=== PATIENT | male | born 1955 | race Caucasian/White ===

== ENCOUNTER 2017-04-18 09:08 | Day surgery (SDC) | payer OTHER ==
[2017-04-15 11:01] VITALS: BP 136/86
[2017-04-15 11:31] LABS: BASOPHILS # (AUTO) 0.06 x10^3/uL (0-0.1); BASOPHILS % (AUTO) 1 % (0-1); EOSINOPHILS # (AUTO) 0.31 x10^3/uL (0-0.4); EOSINOPHILS % (AUTO) 4 % (1-7); LYMPHOCYTES # (AUTO) 1.15 x10^3/uL (1-3.4); LYMPHOCYTES % (AUTO) 13 % (22-44); MD NO; MEAN CORPUSCULAR HEMOGLOBIN 29.8 pg (27.5-34.5); MEAN CORPUSCULAR HGB CONC 33.7 g/dL (33.2-36.2); MEAN CORPUSCULAR VOLUME 88.6 fL (81-97); MEAN PLATELET VOLUME 8.2 fL (7.4-10.4); MONOCYTES # (AUTO) 0.73 x10^3/uL (0.2-0.8); MONOCYTES % (AUTO) 8 % (2-9); NEUTROPHILS # (AUTO) 6.55 x10^3/uL (1.8-6.8); NEUTROPHILS % (AUTO) 74 % (42-75); PLATELET COUNT 253 x10^3/uL (130-400); RED BLOOD COUNT 5.28 x10^6/uL (4.38-5.82); RED CELL DISTRIBUTION WIDTH 14.2 % (9.4-14.8)
[2017-04-15 11:35] LABS: INTERNATIONAL NORMALIZED RATIO 1.04 (0.93-1.1); PROTHROMBIN TIME 10.8 Seconds (9.6-11.5)
[2017-04-15 11:39] LABS: ANION GAP 9 mmol/L (5-15); CHLORIDE 107 mmol/L (98-107); CREATININE 1.03 mg/dL (0.7-1.3)
[~2017-04-18] VITALS: Ht 180.3 cm; Wt 115.9 kg
[~2017-04-18 09:08] MED LIST: ASPI-515 PO; ATOR-2 PO; DOCU-131 PO; FURO-93 PO; HYDR-3240 PO; INSU100I11 SQ-INSULIN; INSU100V8 SQ; LISI-167 PO; METF100010 PO; WARF10TA PO; WARF7.5T PO
[2017-04-18] MEDS ORDERED: ATEN25TA PO (09:40)
[2017-04-18] MEDS ORDERED: TRAV5DRO LEFTEYE (09:49)
[2017-04-18] MEDS ORDERED: EZET10TA18 PO (09:49)
[2017-04-18] MEDS ORDERED: TIOT4MIS3 INH (09:49)
[2017-04-18] MEDS ORDERED: LIRA0.6P INJ (09:49)
[2017-04-18 10:04] LABS: INTERNATIONAL NORMALIZED RATIO 1.01 (0.93-1.1); PROTHROMBIN TIME 10.5 Seconds (9.6-11.5)
[2017-04-18] MEDS ORDERED: MIDAZOLAM 1 MG/ML, 5ML ONE (11:28)
[2017-04-18] MEDS ORDERED: FENTANYL PF 100 MCG/2ML ONE (11:28)
[2017-04-18] MEDS ORDERED: LIDOCAINE 2%, 20ML ONE (11:28)
[2017-04-18] MEDS ORDERED: DIPHENHYDRAMINE 50 MG/ML, 1ML ONE (11:51)
[2017-04-18] MEDS ORDERED: DABI150C PO (12:46)
== END 2017-04-18 13:54 ==
LOC: CACL 09:08
PROVIDERS: ATTEND Internal Medicine Cardiovascular Disease
DX: I26.09 Other pulmonary embolism with acute cor pulmonale (principal); Z79.01 Long term (current) use of anticoagulants; I10 Essential (primary) hypertension; E11.9 Type 2 diabetes mellitus without complications; F17.211 Nicotine dependence, cigarettes, in remission; Z95.1 Presence of aortocoronary bypass graft; G47.30 Sleep apnea, unspecified; Z79.82 Long term (current) use of aspirin
CPT/HCPCS: 36415; 80048; 83880; 85025; 85610; 93451; 99156; 99157; C1769; C1894; J1200; J2250; J3010; J3490

== ENCOUNTER → 2017-10-25 | Outpatient (CLI) | payer OTHER ==
[~2017-10-25] MED LIST changes: +ATEN25TA PO; +DABI150C PO; +EZET10TA18 PO; +LIRA0.6P INJ; +TIOT4MIS3 INH; +TRAV5DRO LEFTEYE
== END | disposition home or self-care (01) ==
LOC: CVU 09:33
PROVIDERS: ATTEND Internal Medicine Cardiovascular Disease
DX: I82.411 Acute embolism and thrombosis of right femoral vein (principal); I82.431 Acute embolism and thrombosis of right popliteal vein; I87.2 Venous insufficiency (chronic) (peripheral); I26.09 Other pulmonary embolism with acute cor pulmonale; I10 Essential (primary) hypertension; E11.9 Type 2 diabetes mellitus without complications
CPT/HCPCS: 93970

== ENCOUNTER → 2018-04-26 | Outpatient (CLI) | payer OTHER ==
[~2018-04-26] MED LIST changes: +DULA1.5P SC; +INSU100C SQ-INSULIN
[2018-04-26 15:41] LABS: ALANINE AMINOTRANSFERASE 20 U/L (12-78); ALBUMIN 3.1 g/dL (3.4-5.0); ANION GAP 7 mmol/L (5-15); CALCIUM 8.7 mg/dL (8.5-10.1); CHLORIDE 107 mmol/L (98-107); CREATININE 1.01 mg/dL (0.7-1.3)
[2018-04-26 15:43] LABS: ALKALINE PHOSPHATASE 56 U/L (45-117); BILIRUBIN,TOTAL 0.3 mg/dL (0.2-1.0); TOTAL PROTEIN 6.8 g/dL (6.4-8.2)
== END | disposition home or self-care (01) ==
LOC: STAR 14:18
PROVIDERS: ATTEND Internal Medicine
DX: Z01.818 Encounter for other preprocedural examination (principal); D12.6 Benign neoplasm of colon, unspecified; I44.5 Left posterior fascicular block
CPT/HCPCS: 36415; 80053; 93005

== ENCOUNTER 2018-05-03 08:12 | Day surgery (SDC) | payer OTHER ==
[~2018-05-03] VITALS: Ht 180.3 cm; Wt 114.5 kg
[2018-05-03 08:54] VITALS: BP 145/84
[2018-05-03] MEDS ORDERED: LACTATED RINGERS 1,000 ML IV SCH (08:54)
[2018-05-03] MEDS ORDERED: LIDOCAINE-MPF 1%, 2ML INFIL ONE (09:00)
[2018-05-03] MEDS ORDERED: MIDAZOLAM 1 MG/ML, 2ML ONE (09:37)
[2018-05-03] MEDS ORDERED: FENTANYL PF 100 MCG/2ML ONE (09:37)
[2018-05-03] MEDS ORDERED: ONDANSETRON 2MG/ML, 2ML ONE (09:45)
[2018-05-03] MEDS ORDERED: PROPOFOL 10 MG/ML, 20ML ONE (09:45)
== END 2018-05-03 11:40 | disposition home or self-care (01) ==
LOC: OUT 08:12
PROVIDERS: ATTEND Internal Medicine
DX: Z12.11 Encounter for screening for malignant neoplasm of colon (principal); K63.89 Other specified diseases of intestine; J44.9 Chronic obstructive pulmonary disease, unspecified; I25.10 Atherosclerotic heart disease of native coronary artery without angina pectoris; I11.9 Hypertensive heart disease without heart failure; Z79.01 Long term (current) use of anticoagulants; Z88.0 Allergy status to penicillin; Z98.890 Other specified postprocedural states
CPT/HCPCS: 45378; 82962; J2250; J2405; J2704; J3010; J7120

== ENCOUNTER → 2018-05-22 | Outpatient (CLI) | payer OTHER | END | disposition home or self-care (01) | LOC: WOUND 09:16 | PROVIDERS: ATTEND Family Medicine | DX: E11.622 Type 2 diabetes mellitus with other skin ulcer (principal); I87.311 Chronic venous hypertension (idiopathic) with ulcer of right lower extremity; L97.211 Non-pressure chronic ulcer of right calf limited to breakdown of skin; E78.5 Hyperlipidemia, unspecified; E11.21 Type 2 diabetes mellitus with diabetic nephropathy; E66.01 Morbid (severe) obesity due to excess calories; I25.10 Atherosclerotic heart disease of native coronary artery without angina pectoris; J44.9 Chronic obstructive pulmonary disease, unspecified; I11.9 Hypertensive heart disease without heart failure; Z86.718 Personal history of other venous thrombosis and embolism; Z87.891 Personal history of nicotine dependence; Z86.711 Personal history of pulmonary embolism; Z79.01 Long term (current) use of anticoagulants; Z79.4 Long term (current) use of insulin; Z68.35 Body mass index [BMI] 35.0-35.9, adult | CPT/HCPCS: 97597; 99215 ==

== ENCOUNTER → 2018-06-05 | Outpatient (CLI) | payer OTHER | END | disposition home or self-care (01) | LOC: WOUND 09:30 | PROVIDERS: ATTEND Internal Medicine | DX: E11.622 Type 2 diabetes mellitus with other skin ulcer (principal); I87.311 Chronic venous hypertension (idiopathic) with ulcer of right lower extremity; L97.811 Non-pressure chronic ulcer of other part of right lower leg limited to breakdown of skin; E11.21 Type 2 diabetes mellitus with diabetic nephropathy; I11.0 Hypertensive heart disease with heart failure; I50.9 Heart failure, unspecified; E78.5 Hyperlipidemia, unspecified; J44.9 Chronic obstructive pulmonary disease, unspecified; I25.10 Atherosclerotic heart disease of native coronary artery without angina pectoris; E66.01 Morbid (severe) obesity due to excess calories; Z68.35 Body mass index [BMI] 35.0-35.9, adult; Z79.4 Long term (current) use of insulin; Z87.891 Personal history of nicotine dependence; Z86.711 Personal history of pulmonary embolism; Z86.718 Personal history of other venous thrombosis and embolism | CPT/HCPCS: 97597 ==

== ENCOUNTER 2018-06-12 10:05 | Outpatient (CLI) | payer OTHER | END 2018-06-12 23:59 | disposition home or self-care (01) | LOC: WOUND 10:05 | PROVIDERS: ATTEND Internal Medicine | DX: E11.622 Type 2 diabetes mellitus with other skin ulcer (principal); I87.311 Chronic venous hypertension (idiopathic) with ulcer of right lower extremity; L97.811 Non-pressure chronic ulcer of other part of right lower leg limited to breakdown of skin; E11.21 Type 2 diabetes mellitus with diabetic nephropathy; I11.0 Hypertensive heart disease with heart failure; I50.9 Heart failure, unspecified; E78.5 Hyperlipidemia, unspecified; J44.9 Chronic obstructive pulmonary disease, unspecified; I25.10 Atherosclerotic heart disease of native coronary artery without angina pectoris; E66.01 Morbid (severe) obesity due to excess calories; Z68.35 Body mass index [BMI] 35.0-35.9, adult; Z79.4 Long term (current) use of insulin; Z87.891 Personal history of nicotine dependence; Z86.711 Personal history of pulmonary embolism; Z79.01 Long term (current) use of anticoagulants; Z86.718 Personal history of other venous thrombosis and embolism | CPT/HCPCS: 97597 ==

== ENCOUNTER → 2018-06-19 | Outpatient (CLI) | payer OTHER | END | disposition home or self-care (01) | LOC: WOUND 10:48 | PROVIDERS: ATTEND Internal Medicine | DX: E11.622 Type 2 diabetes mellitus with other skin ulcer (principal); I87.311 Chronic venous hypertension (idiopathic) with ulcer of right lower extremity; L97.811 Non-pressure chronic ulcer of other part of right lower leg limited to breakdown of skin; E11.21 Type 2 diabetes mellitus with diabetic nephropathy; I11.0 Hypertensive heart disease with heart failure; I50.9 Heart failure, unspecified; E78.5 Hyperlipidemia, unspecified; J44.9 Chronic obstructive pulmonary disease, unspecified; I25.10 Atherosclerotic heart disease of native coronary artery without angina pectoris; E66.01 Morbid (severe) obesity due to excess calories; Z68.35 Body mass index [BMI] 35.0-35.9, adult; Z79.4 Long term (current) use of insulin; Z87.891 Personal history of nicotine dependence; Z79.01 Long term (current) use of anticoagulants; Z86.711 Personal history of pulmonary embolism; Z86.718 Personal history of other venous thrombosis and embolism | CPT/HCPCS: 97597 ==

== ENCOUNTER → 2018-06-26 | Outpatient (CLI) | payer OTHER | END | disposition home or self-care (01) | LOC: WOUND 08:36 | PROVIDERS: ATTEND Internal Medicine | DX: E11.622 Type 2 diabetes mellitus with other skin ulcer (principal); I87.311 Chronic venous hypertension (idiopathic) with ulcer of right lower extremity; L97.811 Non-pressure chronic ulcer of other part of right lower leg limited to breakdown of skin; E11.21 Type 2 diabetes mellitus with diabetic nephropathy; I11.0 Hypertensive heart disease with heart failure; I50.9 Heart failure, unspecified; E78.5 Hyperlipidemia, unspecified; J44.9 Chronic obstructive pulmonary disease, unspecified; I25.10 Atherosclerotic heart disease of native coronary artery without angina pectoris; E66.01 Morbid (severe) obesity due to excess calories; Z68.35 Body mass index [BMI] 35.0-35.9, adult; Z88.0 Allergy status to penicillin; Z79.4 Long term (current) use of insulin; Z79.01 Long term (current) use of anticoagulants; Z87.891 Personal history of nicotine dependence; Z86.711 Personal history of pulmonary embolism; Z86.718 Personal history of other venous thrombosis and embolism | CPT/HCPCS: 97597 ==

== ENCOUNTER → 2018-07-03 | Outpatient (CLI) | payer OTHER | END | disposition home or self-care (01) | LOC: WOUND 10:28 | PROVIDERS: ATTEND Internal Medicine | DX: E11.622 Type 2 diabetes mellitus with other skin ulcer (principal); I87.311 Chronic venous hypertension (idiopathic) with ulcer of right lower extremity; L97.811 Non-pressure chronic ulcer of other part of right lower leg limited to breakdown of skin; E11.21 Type 2 diabetes mellitus with diabetic nephropathy; I11.0 Hypertensive heart disease with heart failure; I50.9 Heart failure, unspecified; E78.5 Hyperlipidemia, unspecified; J44.9 Chronic obstructive pulmonary disease, unspecified; I25.10 Atherosclerotic heart disease of native coronary artery without angina pectoris; E66.01 Morbid (severe) obesity due to excess calories; Z68.35 Body mass index [BMI] 35.0-35.9, adult; Z87.891 Personal history of nicotine dependence; Z88.0 Allergy status to penicillin; Z79.4 Long term (current) use of insulin; Z79.01 Long term (current) use of anticoagulants; Z86.711 Personal history of pulmonary embolism; Z86.718 Personal history of other venous thrombosis and embolism | CPT/HCPCS: 97597 ==

== ENCOUNTER 2018-07-10 08:43 | Outpatient (CLI) | payer OTHER | END 2018-07-10 23:59 | disposition home or self-care (01) | LOC: WOUND 08:43 | PROVIDERS: ATTEND Internal Medicine | DX: E11.622 Type 2 diabetes mellitus with other skin ulcer (principal); I87.311 Chronic venous hypertension (idiopathic) with ulcer of right lower extremity; L97.811 Non-pressure chronic ulcer of other part of right lower leg limited to breakdown of skin; E11.21 Type 2 diabetes mellitus with diabetic nephropathy; I11.0 Hypertensive heart disease with heart failure; I50.9 Heart failure, unspecified; E78.5 Hyperlipidemia, unspecified; I25.10 Atherosclerotic heart disease of native coronary artery without angina pectoris; E66.01 Morbid (severe) obesity due to excess calories; Z68.35 Body mass index [BMI] 35.0-35.9, adult; Z88.0 Allergy status to penicillin; Z87.891 Personal history of nicotine dependence; J44.9 Chronic obstructive pulmonary disease, unspecified; Z79.01 Long term (current) use of anticoagulants; Z79.4 Long term (current) use of insulin; Z86.711 Personal history of pulmonary embolism; Z86.718 Personal history of other venous thrombosis and embolism | CPT/HCPCS: 15271; Q4101 ==

== ENCOUNTER → 2018-07-19 | Outpatient (CLI) | payer OTHER | END | disposition home or self-care (01) | LOC: WOUND 09:37 | PROVIDERS: ATTEND Internal Medicine | DX: E11.622 Type 2 diabetes mellitus with other skin ulcer (principal); I87.311 Chronic venous hypertension (idiopathic) with ulcer of right lower extremity; L97.811 Non-pressure chronic ulcer of other part of right lower leg limited to breakdown of skin; E11.21 Type 2 diabetes mellitus with diabetic nephropathy; I11.0 Hypertensive heart disease with heart failure; I50.9 Heart failure, unspecified; J44.9 Chronic obstructive pulmonary disease, unspecified; E78.5 Hyperlipidemia, unspecified; I25.10 Atherosclerotic heart disease of native coronary artery without angina pectoris; E66.01 Morbid (severe) obesity due to excess calories; Z68.35 Body mass index [BMI] 35.0-35.9, adult; Z88.0 Allergy status to penicillin; Z79.01 Long term (current) use of anticoagulants; Z79.4 Long term (current) use of insulin; Z87.891 Personal history of nicotine dependence; Z86.711 Personal history of pulmonary embolism; Z86.718 Personal history of other venous thrombosis and embolism | CPT/HCPCS: 29581 ==

== ENCOUNTER → 2018-07-24 | Outpatient (CLI) | payer OTHER | END | disposition home or self-care (01) | LOC: WOUND 09:45 | PROVIDERS: ATTEND Internal Medicine | DX: E11.622 Type 2 diabetes mellitus with other skin ulcer (principal); I87.311 Chronic venous hypertension (idiopathic) with ulcer of right lower extremity; L97.511 Non-pressure chronic ulcer of other part of right foot limited to breakdown of skin; E11.21 Type 2 diabetes mellitus with diabetic nephropathy; I11.0 Hypertensive heart disease with heart failure; I50.9 Heart failure, unspecified; E78.5 Hyperlipidemia, unspecified; J44.9 Chronic obstructive pulmonary disease, unspecified; I25.10 Atherosclerotic heart disease of native coronary artery without angina pectoris; E66.01 Morbid (severe) obesity due to excess calories; Z68.35 Body mass index [BMI] 35.0-35.9, adult; Z88.0 Allergy status to penicillin; Z79.4 Long term (current) use of insulin; Z86.711 Personal history of pulmonary embolism; Z87.891 Personal history of nicotine dependence; Z86.718 Personal history of other venous thrombosis and embolism; Z79.01 Long term (current) use of anticoagulants | CPT/HCPCS: 15271; Q4101 ==

== ENCOUNTER → 2018-08-02 | Outpatient (CLI) | payer OTHER | END | disposition home or self-care (01) | LOC: WOUND 10:15 | PROVIDERS: ATTEND Internal Medicine | DX: E11.622 Type 2 diabetes mellitus with other skin ulcer (principal); I87.311 Chronic venous hypertension (idiopathic) with ulcer of right lower extremity; L97.811 Non-pressure chronic ulcer of other part of right lower leg limited to breakdown of skin; E11.21 Type 2 diabetes mellitus with diabetic nephropathy; I11.0 Hypertensive heart disease with heart failure; I50.9 Heart failure, unspecified; E78.5 Hyperlipidemia, unspecified; J44.9 Chronic obstructive pulmonary disease, unspecified; I25.10 Atherosclerotic heart disease of native coronary artery without angina pectoris; E66.01 Morbid (severe) obesity due to excess calories; Z68.35 Body mass index [BMI] 35.0-35.9, adult; Z88.0 Allergy status to penicillin; Z79.4 Long term (current) use of insulin; Z79.01 Long term (current) use of anticoagulants; Z87.891 Personal history of nicotine dependence; Z86.711 Personal history of pulmonary embolism; Z86.718 Personal history of other venous thrombosis and embolism | CPT/HCPCS: 15271; Q4101 ==

== ENCOUNTER → 2018-08-07 | Outpatient (CLI) | payer OTHER | END | disposition home or self-care (01) | LOC: WOUND 09:10 | PROVIDERS: ATTEND Internal Medicine | DX: E11.622 Type 2 diabetes mellitus with other skin ulcer (principal); I87.311 Chronic venous hypertension (idiopathic) with ulcer of right lower extremity; L97.211 Non-pressure chronic ulcer of right calf limited to breakdown of skin; E11.21 Type 2 diabetes mellitus with diabetic nephropathy; E78.5 Hyperlipidemia, unspecified; I25.10 Atherosclerotic heart disease of native coronary artery without angina pectoris; E66.01 Morbid (severe) obesity due to excess calories; Z68.35 Body mass index [BMI] 35.0-35.9, adult; Z87.891 Personal history of nicotine dependence; Z86.711 Personal history of pulmonary embolism; Z86.718 Personal history of other venous thrombosis and embolism | CPT/HCPCS: 99214 ==

== ENCOUNTER → 2018-08-14 | Outpatient (CLI) | payer OTHER | END | disposition home or self-care (01) | LOC: WOUND 08:06 | PROVIDERS: ATTEND Internal Medicine | DX: E11.622 Type 2 diabetes mellitus with other skin ulcer (principal); I87.311 Chronic venous hypertension (idiopathic) with ulcer of right lower extremity; L97.811 Non-pressure chronic ulcer of other part of right lower leg limited to breakdown of skin; E11.21 Type 2 diabetes mellitus with diabetic nephropathy; I11.0 Hypertensive heart disease with heart failure; I50.9 Heart failure, unspecified; E78.5 Hyperlipidemia, unspecified; J44.9 Chronic obstructive pulmonary disease, unspecified; I25.10 Atherosclerotic heart disease of native coronary artery without angina pectoris; E66.01 Morbid (severe) obesity due to excess calories; Z68.35 Body mass index [BMI] 35.0-35.9, adult; Z79.4 Long term (current) use of insulin; Z88.0 Allergy status to penicillin; Z86.711 Personal history of pulmonary embolism; Z87.891 Personal history of nicotine dependence; Z79.01 Long term (current) use of anticoagulants; Z86.718 Personal history of other venous thrombosis and embolism | CPT/HCPCS: 29581 ==

== ENCOUNTER → 2018-08-21 | Outpatient (CLI) | payer OTHER | END | disposition home or self-care (01) | LOC: WOUND 10:33 | PROVIDERS: ATTEND Internal Medicine | DX: E11.622 Type 2 diabetes mellitus with other skin ulcer (principal); I87.311 Chronic venous hypertension (idiopathic) with ulcer of right lower extremity; L97.211 Non-pressure chronic ulcer of right calf limited to breakdown of skin; E11.21 Type 2 diabetes mellitus with diabetic nephropathy; I11.0 Hypertensive heart disease with heart failure; I50.9 Heart failure, unspecified; E78.5 Hyperlipidemia, unspecified; J44.9 Chronic obstructive pulmonary disease, unspecified; I25.10 Atherosclerotic heart disease of native coronary artery without angina pectoris; E66.01 Morbid (severe) obesity due to excess calories; Z68.35 Body mass index [BMI] 35.0-35.9, adult; Z88.0 Allergy status to penicillin; Z79.4 Long term (current) use of insulin; Z79.01 Long term (current) use of anticoagulants; Z86.711 Personal history of pulmonary embolism; Z87.891 Personal history of nicotine dependence; Z86.718 Personal history of other venous thrombosis and embolism | CPT/HCPCS: 99214 ==

== ENCOUNTER → 2019-03-07 | Outpatient (CLI) | payer OTHER ==
[~2019-03-07] MED LIST changes: -EZET10TA18 PO; +EZET10TA70 PO
== END | disposition home or self-care (01) ==
LOC: CFH 12:26
PROVIDERS: ATTEND Internal Medicine Cardiovascular Disease
DX: I11.9 Hypertensive heart disease without heart failure (principal); M47.899 Other spondylosis, site unspecified; R06.02 Shortness of breath; I35.0 Nonrheumatic aortic (valve) stenosis; I82.890 Acute embolism and thrombosis of other specified veins
CPT/HCPCS: 71046

== ENCOUNTER → 2019-03-29 | Outpatient (CLI) | payer OTHER | END | disposition home or self-care (01) | LOC: CVU 11:38 | PROVIDERS: ATTEND Internal Medicine Cardiovascular Disease | DX: I11.9 Hypertensive heart disease without heart failure (principal); I08.0 Rheumatic disorders of both mitral and aortic valves; E78.5 Hyperlipidemia, unspecified; E11.9 Type 2 diabetes mellitus without complications; J44.9 Chronic obstructive pulmonary disease, unspecified | CPT/HCPCS: 93306 ==

== ENCOUNTER 2019-04-27 10:49 | Outpatient (CLI) | payer OTHER | END 2019-04-27 23:59 | disposition home or self-care (01) | LOC: CVU 10:49 | PROVIDERS: ATTEND Internal Medicine Cardiovascular Disease | DX: I65.23 Occlusion and stenosis of bilateral carotid arteries (principal); J44.9 Chronic obstructive pulmonary disease, unspecified; E11.9 Type 2 diabetes mellitus without complications; I25.2 Old myocardial infarction | CPT/HCPCS: 93880 ==

== ENCOUNTER 2019-05-10 08:31 | Observation (INO) | payer OTHER ==
[~2019-05-10] VITALS: Ht 180.3 cm; Wt 127.3 kg
[2019-05-10 09:22] VITALS: BP 137/76
[2019-05-10] MEDS ORDERED: DIPHENHYDRAMINE 50 MG/ML, 1ML IVPush ONE (09:30)
[2019-05-10] MEDS ORDERED: CANA300T PO (09:47)
[2019-05-10 09:52] LABS: BASOPHILS # (AUTO) 0.03 x10^3/uL (0-0.1); BASOPHILS % (AUTO) 0 % (0-1); EOSINOPHILS # (AUTO) 0.22 x10^3/uL (0-0.4); EOSINOPHILS % (AUTO) 3 % (1-7); LYMPHOCYTES # (AUTO) 0.87 x10^3/uL (1-3.4); LYMPHOCYTES % (AUTO) 10 % (22-44); MD NO; MEAN CORPUSCULAR HEMOGLOBIN 30.1 pg (27.5-34.5); MEAN CORPUSCULAR HGB CONC 33.3 g/dL (33.2-36.2); MEAN CORPUSCULAR VOLUME 90.3 fL (81-97); MEAN PLATELET VOLUME 8.1 fL (7.4-10.4); MONOCYTES # (AUTO) 1.01 x10^3/uL (0.2-0.8); MONOCYTES % (AUTO) 12 % (2-9); NEUTROPHILS # (AUTO) 6.33 x10^3/uL (1.8-6.8); NEUTROPHILS % (AUTO) 75 % (42-75); PLATELET COUNT 305 x10^3/uL (130-400); RED BLOOD COUNT 4.55 x10^6/uL (4.38-5.82); RED CELL DISTRIBUTION WIDTH 14.4 % (9.4-14.8)
[2019-05-10] MEDS ORDERED: BUME0.5T2 PO (09:55)
[2019-05-10] MEDS ORDERED: POTA20PA25 PO (09:55)
[2019-05-10 10:00] LABS: INTERNATIONAL NORMALIZED RATIO 0.97 (0.93-1.1); PROTHROMBIN TIME 10.3 Seconds (9.6-11.5)
[2019-05-10] MEDS ORDERED: DIPHENHYDRAMINE 50 MG/ML, 1ML ONE (10:01)
[2019-05-10] MEDS ORDERED: MIDAZOLAM 1 MG/ML, 5ML ONE (10:38)
[2019-05-10] MEDS ORDERED: FENTANYL PF 100 MCG/2ML ONE (10:38)
[2019-05-10] MEDS ORDERED: HEPARIN 1,000 UNITS/ML, 10ML ONE (10:39)
[2019-05-10] MEDS ORDERED: NITROGLYCERIN 5 MG/ML, 10ML ONE (10:39)
[2019-05-10] MEDS ORDERED: VERAPAMIL 2.5 MG/ML, 2ML ONE (10:39)
[2019-05-10] MEDS ORDERED: LIDOCAINE-MPF 1%, 5ML ONE (10:39)
[2019-05-10] MEDS: SODIUM CHLORIDE 0.9% 1,000 ML IV SCH ×7 (11:00→23:00)
[2019-05-10] MEDS ORDERED: LIDOCAINE 2%, 20ML ONE (11:22)
[2019-05-10] MEDS ORDERED: BIVALIRUDIN 250 MG ONE (12:16)
[2019-05-10] MEDS ORDERED: TICAGRELOR 90 MG TABLET ONE (12:16)
[2019-05-10] MEDS ORDERED: DULAGLUTIDE SC SCH (13:30)
[2019-05-10] MEDS ORDERED: INSULIN LISPRO 100 UNITS/ML, PEN SQ-INSULIN SCH (13:30)
[2019-05-10] MEDS ORDERED: FUROSEMIDE 40 MG/4 ML ONE (14:34)
[2019-05-10] MEDS ORDERED: FUROSEMIDE 40 MG/4 ML IV ONE (15:00)
[2019-05-10 17:26] VITALS: BP 131/64
[2019-05-10] MEDS ORDERED: HYDROcodone/APAP 5/325 TABLET PO PRN (18:30)
[2019-05-10] MEDS ORDERED: ACETAMINOPHEN 325 MG TABLET PO PRN (18:30)
[2019-05-10 19:37] VITALS: BP 139/81
[2019-05-10] MEDS: DABIGATRAN 150 MG CAPSULE PO SCH (20:27)
[2019-05-10] MEDS: BUMETANIDE 1 MG TABLET PO SCH (20:27)
[2019-05-10] MEDS ORDERED: EZETIMIBE 10 MG TABLET PO SCH (21:00)
[2019-05-10] MEDS ORDERED: TRAVOPROST OPHTH 0.004%, 2.5ML LEFTEYE SCH (21:00)
[2019-05-11] MEDS: SODIUM CHLORIDE 0.9% 1,000 ML IV SCH ×3 (00:41→04:12)
[2019-05-11 01:10] VITALS: BP 144/73
[2019-05-11 07:00] VITALS: BP 142/77
[2019-05-11] MEDS ORDERED: INSULIN LISPRO 100 UNITS/ML, PEN SQ-INSULIN SCH ×2 (07:30→16:30)
[2019-05-11] MEDS ORDERED: TICA90TA PO (07:58)
[2019-05-11] MEDS ORDERED: TICAGRELOR 90 MG TABLET PO STA (07:59)
[2019-05-11] MEDS: BUMETANIDE 1 MG TABLET PO SCH (08:23)
[2019-05-11] MEDS: DABIGATRAN 150 MG CAPSULE PO SCH (08:23)
[2019-05-11] MEDS ORDERED: TEMPLATE NON-FORMULARY MED. (Canagliflozin (Invokana) 300 MG) PO SCH (09:00)
[2019-05-11] MEDS ORDERED: ATORVASTATIN 80 MG TABLET PO SCH (09:00)
[2019-05-11] MEDS ORDERED: ATENOLOL 25 MG TABLET PO SCH (09:00)
[2019-05-11] MEDS ORDERED: POTASSIUM CHLORIDE 20 MEQ PACKET PO SCH (09:00)
[2019-05-11] MEDS ORDERED: LISINOPRIL 40 MG TABLET PO SCH (09:00)
== END 2019-05-11 12:20 | disposition home or self-care (01) ==
LOC: CACL 08:31 → 5SO 16:57 → CACL 21:51 → DCLOUNGE 05-11 12:07
PROVIDERS: ADMIT Internal Medicine Cardiovascular Disease; ATTEND Internal Medicine Cardiovascular Disease
DX: I35.0 Nonrheumatic aortic (valve) stenosis (principal); I25.10 Atherosclerotic heart disease of native coronary artery without angina pectoris; I25.82 Chronic total occlusion of coronary artery; Z95.1 Presence of aortocoronary bypass graft; Z79.899 Other long term (current) drug therapy; Z79.01 Long term (current) use of anticoagulants
CPT/HCPCS: 82962; 85025; 85610; 85730; 93454; 96374; 96375; 99156; 99157; C1725; C1760; C1769; C1874; C1887; C1894; C9600; G0378; J0583; J1200; J1644; J1940; J2250; J3010; J3490; Q9967

== ENCOUNTER → 2019-05-16 | Outpatient (CLI) | payer OTHER ==
[~2019-05-16] MED LIST changes: +BUME0.5T2 PO; +CANA300T PO; +METOPROLOL 1 MG/ML, 5ML ONE; +POTA20PA25 PO; +TICA90TA PO; +VISIPAQUE 320 MG/ML, 150ML BOTTLE ONE
== END | disposition home or self-care (01) ==
LOC: RAD 10:58
PROVIDERS: ATTEND Internal Medicine Cardiovascular Disease
DX: K76.0 Fatty (change of) liver, not elsewhere classified (principal); K80.20 Calculus of gallbladder without cholecystitis without obstruction; I25.10 Atherosclerotic heart disease of native coronary artery without angina pectoris; I35.0 Nonrheumatic aortic (valve) stenosis; I70.0 Atherosclerosis of aorta; I77.1 Stricture of artery
CPT/HCPCS: 71275; 74174; Q9967

== ENCOUNTER 2019-05-29 06:14 | Inpatient (IN) | payer OTHER ==
[~2019-05-29] VITALS: Ht 180.3 cm; Wt 133.0 kg
[~2019-05-29 06:14] MED LIST changes: -METOPROLOL 1 MG/ML, 5ML ONE; -VISIPAQUE 320 MG/ML, 150ML BOTTLE ONE
[2019-05-29] MEDS ORDERED: SODIUM CHLORIDE 0.9% 1,000 ML IV ONE (06:22)
[2019-05-29] MEDS ORDERED: CHLORHEXIDINE 15 ML UDC MM PRN (06:30)
[2019-05-29] MEDS ORDERED: ONDANSETRON 2MG/ML, 2ML IVPush PRN ×2 (06:30→09:30)
[2019-05-29 06:35] VITALS: BP 185/93
[2019-05-29] MEDS ORDERED: [UNRECOGNIZED DRUG - OTHER] (07:09)
[2019-05-29] MEDS ORDERED: BRIN8DRO LEFTEYE (07:11)
[2019-05-29] MEDS ORDERED: HEPARIN 1,000 UNITS/ML, 30ML ONE (07:13)
[2019-05-29] MEDS ORDERED: FENTANYL PF 250 MCG/5ML ONE (07:13)
[2019-05-29] MEDS ORDERED: PHENYLEPHRINE 10 MG/ML ONE (07:14)
[2019-05-29] MEDS ORDERED: PROPOFOL 10 MG/ML, 20ML ONE (07:14)
[2019-05-29] MEDS ORDERED: ROCURONIUM 10MG/ML,5ML ONE (07:14)
[2019-05-29] MEDS ORDERED: SUCCINYLCHOLINE 20 MG/ML, 10ML ONE (07:14)
[2019-05-29 07:38] LABS: BASOPHILS # (AUTO) 0.06 x10^3/uL (0-0.1); BASOPHILS % (AUTO) 1 % (0-1); EOSINOPHILS # (AUTO) 0.22 x10^3/uL (0-0.4); EOSINOPHILS % (AUTO) 2 % (1-7); LYMPHOCYTES # (AUTO) 1.32 x10^3/uL (1-3.4); LYMPHOCYTES % (AUTO) 14 % (22-44); MD NO; MEAN CORPUSCULAR HEMOGLOBIN 29.6 pg (27.5-34.5); MEAN CORPUSCULAR HGB CONC 32.8 g/dL (33.2-36.2); MEAN CORPUSCULAR VOLUME 90.5 fL (81-97); MEAN PLATELET VOLUME 8.7 fL (7.4-10.4); MONOCYTES # (AUTO) 1.07 x10^3/uL (0.2-0.8); MONOCYTES % (AUTO) 11 % (2-9); NEUTROPHILS # (AUTO) 7.11 x10^3/uL (1.8-6.8); NEUTROPHILS % (AUTO) 73 % (42-75); PLATELET COUNT 311 x10^3/uL (130-400); RED BLOOD COUNT 4.72 x10^6/uL (4.38-5.82); RED CELL DISTRIBUTION WIDTH 14.3 % (9.4-14.8)
[2019-05-29 07:45] LABS: ALANINE AMINOTRANSFERASE 24 U/L (12-78); ALBUMIN 3.2 g/dL (3.4-5.0); ANION GAP 8 mmol/L (5-15); CALCIUM 8.7 mg/dL (8.5-10.1); CHLORIDE 109 mmol/L (98-107); CREATININE 1.26 mg/dL (0.7-1.3)
[2019-05-29 07:47] LABS: INTERNATIONAL NORMALIZED RATIO 0.99 (0.93-1.1); PROTHROMBIN TIME 10.5 Seconds (9.6-11.5)
[2019-05-29 07:49] LABS: ALKALINE PHOSPHATASE 59 U/L (45-117); BILIRUBIN,TOTAL 0.5 mg/dL (0.2-1.0); TOTAL PROTEIN 7.4 g/dL (6.4-8.2)
[2019-05-29] MEDS ORDERED: TICAGRELOR 90 MG TABLET ONE (07:49)
[2019-05-29] MEDS ORDERED: SUGAMMADEX 200 MG/2 ML IVPush ONE (07:54)
[2019-05-29] MEDS ORDERED: DEXAMETHASONE 4 MG/ML, 1ML ONE (07:54)
[2019-05-29] MEDS ORDERED: ONDANSETRON 2MG/ML, 2ML ONE (07:54)
[2019-05-29] MEDS ORDERED: BIVALIRUDIN 250 MG ONE (08:10)
[2019-05-29] MEDS ORDERED: hydrALAzine 20 MG/ML, 1ML ONE (09:25)
[2019-05-29] MEDS ORDERED: DEXTROSE 4 GM TAB.CHEW PO PRN (09:30)
[2019-05-29] MEDS ORDERED: ACETAMINOPHEN 325 MG TABLET PO PRN (09:30)
[2019-05-29] MEDS ORDERED: LABETALOL 20 MG/4 ML IVPush PRN (09:30)
[2019-05-29] MEDS ORDERED: HYDROcodone/APAP 5/325 TABLET PO PRN (09:30)
[2019-05-29] MEDS ORDERED: GLUCAGON 1 MG IM PRN (09:30)
[2019-05-29] MEDS ORDERED: FUROSEMIDE 40 MG/4 ML IV ONE (09:30)
[2019-05-29] MEDS ORDERED: hydrALAzine 20 MG/ML, 1ML IVPush PRN (09:30)
[2019-05-29] MEDS ORDERED: DEXTROSE 50%, 50ML SYRINGE IVPush PRN (09:30)
[2019-05-29] MEDS ORDERED: [UNRECOGNIZED DRUG - OTHER] SC SCH (09:30)
[2019-05-29] MEDS ORDERED: LABETALOL 5MG/ML, 20ML ONE (09:33)
[2019-05-29] MEDS ORDERED: LABETALOL 5MG/ML, 20ML IVPush PRN (10:00)
[2019-05-29] MEDS: BUMETANIDE 1 MG TABLET PO SCH ×2 (10:32→21:00)
[2019-05-29] MEDS: ATENOLOL 25 MG TABLET PO SCH (10:34)
[2019-05-29] MEDS: ATORVASTATIN 80 MG TABLET PO SCH (10:35)
[2019-05-29] MEDS: INSULIN LISPRO 100 UNITS/ML, PEN SQ-INSULIN SCH ×3 (13:06→21:06)
[2019-05-29] MEDS: SODIUM CHLORIDE FLUSH 10ML SYR IVF SCH (20:59)
[2019-05-29] MEDS: TICAGRELOR 90 MG TABLET PO SCH (21:00)
[2019-05-29] MEDS ORDERED: BUMETANIDE 1 MG TABLET PO SCH (21:00)
[2019-05-29] MEDS ORDERED: EZETIMIBE 10 MG TABLET PO SCH (21:00)
[2019-05-29] MEDS: DABIGATRAN 150 MG CAPSULE PO SCH (21:01)
[2019-05-30 05:20] LABS: MEAN CORPUSCULAR HEMOGLOBIN 29.4 pg (27.5-34.5); MEAN CORPUSCULAR HGB CONC 32.5 g/dL (33.2-36.2); MEAN CORPUSCULAR VOLUME 90.5 fL (81-97); MEAN PLATELET VOLUME 8.7 fL (7.4-10.4); PLATELET COUNT 260 x10^3/uL (130-400); RED BLOOD COUNT 4.42 x10^6/uL (4.38-5.82); RED CELL DISTRIBUTION WIDTH 14.7 % (9.4-14.8)
[2019-05-30 05:25] LABS: CHLORIDE 109 mmol/L (98-107)
[2019-05-30 05:33] VITALS: BP 130/50
[2019-05-30 05:35] LABS: ANION GAP 7 mmol/L (5-15); CALCIUM 8.9 mg/dL (8.5-10.1); CREATININE 1.42 mg/dL (0.7-1.3)
[2019-05-30 05:55] LABS: BASOPHILS # (AUTO) 0.03 x10^3/uL (0-0.1); BASOPHILS % (AUTO) 0 % (0-1); EOSINOPHILS # (AUTO) 0.09 x10^3/uL (0-0.4); EOSINOPHILS % (AUTO) 1 % (1-7); LYMPHOCYTES # (AUTO) 0.91 x10^3/uL (1-3.4); LYMPHOCYTES % (AUTO) 7 % (22-44); MD SCAN; MONOCYTES # (AUTO) 1.09 x10^3/uL (0.2-0.8); MONOCYTES % (AUTO) 8 % (2-9); NEUTROPHILS # (AUTO) 11.13 x10^3/uL (1.8-6.8); NEUTROPHILS % (AUTO) 84 % (42-75)
[2019-05-30] MEDS: INSULIN LISPRO 100 UNITS/ML, PEN SQ-INSULIN SCH ×2 (07:00→11:00)
[2019-05-30 08:01] VITALS: BP 116/71
[2019-05-30] MEDS: TICAGRELOR 90 MG TABLET PO SCH (08:10)
[2019-05-30] MEDS: DABIGATRAN 150 MG CAPSULE PO SCH (08:10)
[2019-05-30] MEDS: ATENOLOL 25 MG TABLET PO SCH (08:10)
[2019-05-30] MEDS: ATORVASTATIN 80 MG TABLET PO SCH (08:10)
[2019-05-30] MEDS: BUMETANIDE 1 MG TABLET PO SCH (08:11)
[2019-05-30] MEDS: SODIUM CHLORIDE FLUSH 10ML SYR IVF SCH (08:11)
[2019-05-30] MEDS ORDERED: BRIMONID TART LEFTEYE SCH (09:00)
[2019-05-30] MEDS ORDERED: CANAGLIFLOZIN PO SCH (09:00)
[2019-05-30] MEDS ORDERED: LISINOPRIL 40 MG TABLET PO SCH (09:00)
[2019-05-30] MEDS ORDERED: POTASSIUM CHLORIDE 20 MEQ PACKET PO SCH (09:00)
[2019-05-30] MEDS ORDERED: BRINZOLAMIDE LEFTEYE SCH (09:00)
[2019-05-30 13:08] VITALS: BP 124/66
== END 2019-05-30 15:00 | disposition home or self-care (01) | DRG 266 ==
LOC: ORIP 06:14 → CCU 09:16 → 5SO 05-30 06:34 → DCLOUNGE 05-30 14:55
PROVIDERS: ADMIT Internal Medicine Cardiovascular Disease; ATTEND Internal Medicine Cardiovascular Disease
PROC: 03HY32Z Insertion of Monitoring Device into Upper Artery, Percutaneous Approach (ICD-10-PCS; 2019-05-29)
PROC: B3101ZZ Fluoroscopy of Thoracic Aorta using Low Osmolar Contrast (ICD-10-PCS; 2019-05-29)
PROC: B24BZZ4 Ultrasonography of Heart with Aorta, Transesophageal (ICD-10-PCS; 2019-05-29)
PROC: 4A023N7 Measurement of Cardiac Sampling and Pressure, Left Heart, Percutaneous Approach (ICD-10-PCS; 2019-05-29)
PROC: B211YZZ Fluoroscopy of Multiple Coronary Arteries using Other Contrast (ICD-10-PCS; 2019-05-29)
PROC: 02RF38Z Replacement of Aortic Valve with Zooplastic Tissue, Percutaneous Approach (ICD-10-PCS; principal; 2019-05-29 07:30)
DX: I35.0 Nonrheumatic aortic (valve) stenosis (principal); I50.33 Acute on chronic diastolic (congestive) heart failure; Z68.41 Body mass index [BMI] 40.0-44.9, adult; Z00.6 Encounter for examination for normal comparison and control in clinical research program; Z88.8 Allergy status to other drugs, medicaments and biological substances; E11.9 Type 2 diabetes mellitus without complications; E78.5 Hyperlipidemia, unspecified; I07.1 Rheumatic tricuspid insufficiency; N28.9 Disorder of kidney and ureter, unspecified; Z95.1 Presence of aortocoronary bypass graft; I25.10 Atherosclerotic heart disease of native coronary artery without angina pectoris; I27.20 Pulmonary hypertension, unspecified; D64.9 Anemia, unspecified
CPT/HCPCS: 33361; 36415; 80048; 80053; 82962; 83880; 85025; 85347; 85610; 85730; 86850; 86900; 86923; 87081; 93005; 93306; 93312; 93321; 93325; 93355; 93454; C1760; C1769; C1894; G0378; J0583; J1100; J1644; J1940; J2405; J2704; J3010; C1887; J0330; J0360; J1815; J2370; J7030; Q9967

== ENCOUNTER → 2019-06-15 | Outpatient (CLI) | payer OTHER ==
[~2019-06-15] MED LIST changes: +BRIN8DRO LEFTEYE; +[UNRECOGNIZED DRUG - OTHER]
== END | disposition home or self-care (01) ==
LOC: CVU 13:46
PROVIDERS: ATTEND Internal Medicine Cardiovascular Disease
DX: I08.1 Rheumatic disorders of both mitral and tricuspid valves (principal); I65.29 Occlusion and stenosis of unspecified carotid artery
CPT/HCPCS: 93306

== ENCOUNTER 2019-12-15 21:16 | Inpatient (IN) | payer OTHER ==
[~2019-12-15] VITALS: Ht 180.3 cm; Wt 131.9 kg
--- NOTE | 2019-12-15 21:27 | NUR ---
MARQUITA [phone]
[2019-12-15] MEDS ORDERED: SODIUM CHLORIDE 0.9% 1,000ML IVBOLUS ONE ×2 (21:30→23:30)
--- NOTE | 2019-12-15 21:56 | NUR ---
Report received from CYNDI Lord and CYNDI Arriaga. This RN to assume care. Patient states he had a fever at home of 102 for a few hours. He has had intermittent fevers since yesterday. Denies other sympotms.
[2019-12-15] MEDS ORDERED: CEFTRIAXONE PMX 1GM/50ML 50 ML IV ONE (22:00)
[2019-12-15] MEDS ORDERED: CEFTRIAXONE PMX 1GM/50ML 50 ML ONE (22:02)
[2019-12-15 22:18] LABS: MEAN CORPUSCULAR HGB CONC 32.1 g/dL (33.2-36.2); MEAN CORPUSCULAR VOLUME 90.2 fL (81-97); MEAN PLATELET VOLUME 8.5 fL (7.4-10.4); PLATELET COUNT 256 x10^3/uL (130-400); RED BLOOD COUNT 4.84 x10^6/uL (4.38-5.82); RED CELL DISTRIBUTION WIDTH 14.8 % (9.4-14.8)
[2019-12-15 22:26] LABS: ALANINE AMINOTRANSFERASE 19 U/L (12-78); ALBUMIN 3.6 g/dL (3.4-5.0); ANION GAP 6 mmol/L (5-15); CALCIUM 9.5 mg/dL (8.5-10.1); CHLORIDE 103 mmol/L (98-107); CREATININE 2.24 mg/dL (0.7-1.3)
[2019-12-15 22:28] LABS: ALKALINE PHOSPHATASE 74 U/L (45-117); BILIRUBIN,TOTAL 0.7 mg/dL (0.2-1.0); TOTAL PROTEIN 8.1 g/dL (6.4-8.2)
[2019-12-15 22:34] LABS: BASOPHILS % (AUTO) 0 % (0-1); EOSINOPHILS # (AUTO) 0.08 x10^3/uL (0-0.4); EOSINOPHILS % (AUTO) 1 % (1-7); LYMPHOCYTES # (AUTO) 0.22 x10^3/uL (1-3.4); LYMPHOCYTES % (AUTO) 2 % (22-44); MD SCAN; MONOCYTES # (AUTO) 0.07 x10^3/uL (0.2-0.8); MONOCYTES % (AUTO) 1 % (2-9); NEUTROPHILS # (AUTO) 12.93 x10^3/uL (1.8-6.8); NEUTROPHILS % (AUTO) 97 % (42-75)
[2019-12-15 23:15] LABS: MICROSCOPIC AUTO
[2019-12-15] MEDS ORDERED: VANCOMYCIN PER PHARMACY MC PRN (23:30)
--- NOTE | 2019-12-15 23:30 | NUR ---
Patient feeling hot to the touch and sweaty. Room is hot and unable to adjust temp. Provided ice packs to patient.
[2019-12-16] VITALS (7 sets, daily range): BP systolic 91–138; BP diastolic 51–86
[2019-12-16] MEDS ORDERED: DOCUSATE 100 MG CAPSULE PO PRN
[2019-12-16] MEDS ORDERED: VANCOMYCIN PER PHARMACY MC PRN
[2019-12-16] MEDS ORDERED: ACETAMINOPHEN 325 MG TABLET PO PRN
--- NOTE | 2019-12-16 00:08 | NUR ---
Report given to CYNDI Narvaez. Patient transferred to room 492-1.
[2019-12-16] MEDS ORDERED: PHARMACOKINETIC MONITORING MC PRN (02:00)
[2019-12-16] MEDS ORDERED: VANCOMYCIN 2,500 MG in SODIUM CHLORIDE 0.9% 500 ML IV ONE (03:30)
[2019-12-16 05:52] LABS: MEAN CORPUSCULAR HEMOGLOBIN 29.2 pg (27.5-34.5); MEAN CORPUSCULAR HGB CONC 32.5 g/dL (33.2-36.2); MEAN CORPUSCULAR VOLUME 89.8 fL (81-97); MEAN PLATELET VOLUME 9.1 fL (7.4-10.4); PLATELET COUNT 219 x10^3/uL (130-400); RED BLOOD COUNT 4.17 x10^6/uL (4.38-5.82); RED CELL DISTRIBUTION WIDTH 14.7 % (9.4-14.8)
[2019-12-16 05:59] LABS: ANION GAP 11 mmol/L (5-15); CALCIUM 8.7 mg/dL (8.5-10.1); CHLORIDE 103 mmol/L (98-107)
[2019-12-16 06:00] LABS: CREATININE 2.54 mg/dL (0.7-1.3)
[2019-12-16 06:12] LABS: MD YES
[2019-12-16 06:14] LABS: <PLATELET ESTIMATE> ADEQUATE; <PLT MORPHOLOGY> NORMAL PLT MORPH; <RBC MORPHOLOGY> NORMAL; BAND#(MANUAL) 1.93 x10^3/uL; BANDS%(MANUAL) 8 % (0-7); LYMPH#(MANUAL) 0.48 x10^3/uL (1-3.4); LYMPHS% (MANUAL) 2 % (22-44); MONOS#(MANUAL) 1.45 x10^3/uL (0.3-2.7); MONOS% (MANUAL) 6 % (2-9); SEG#(MANUAL) 20.24 x10^3/uL (1.8-6.8); SEGS% (MANUAL) 84 % (42-75)
[2019-12-16] MEDS ORDERED: INSULIN REGULAR 100 UNITS/ML, 3ML VIAL SQ-INSULIN SCH (07:00)
[2019-12-16] MEDS: TICAGRELOR 90 MG TABLET PO SCH ×2 (08:10→21:14)
[2019-12-16] MEDS: DABIGATRAN 150 MG CAPSULE PO SCH ×2 (08:10→21:14)
[2019-12-16] MEDS: POTASSIUM CHLORIDE 20 MEQ PACKET PO SCH (08:10)
[2019-12-16] MEDS: LISINOPRIL 40 MG TABLET PO SCH (08:11)
[2019-12-16] MEDS: ATENOLOL 25 MG TABLET PO SCH (08:11)
[2019-12-16] MEDS: ATORVASTATIN 80 MG TABLET PO SCH (08:11)
[2019-12-16] MEDS: BRINZOLAMIDE EYE MC SCH ×2 (08:19→16:29)
[2019-12-16] MEDS: BRINZOLAMIDE LEFTEYE SCH ×2 (08:19→21:14)
[2019-12-16] MEDS: BRIMONID TART LEFTEYE SCH ×2 (08:19→21:14)
[2019-12-16] MEDS ORDERED: BUMETANIDE 1 MG TABLET PO SCH ×2 (09:00→17:00)
[2019-12-16] MEDS: OXYcodone IR 5MG TABLET PO PRN (09:37)
[2019-12-16] MEDS: ACETAMINOPHEN 500 MG TABLET PO SCH ×3 (09:38→21:14)
[2019-12-16] MEDS ORDERED: ONDANSETRON 2MG/ML, 2ML ONE (16:56)
[2019-12-16] MEDS: SODIUM CHLORIDE 0.9% 1,000 ML IV SCH (16:56)
[2019-12-16] MEDS ORDERED: ONDANSETRON 2MG/ML, 2ML IVPush PRN (17:00)
[2019-12-16 17:59] LABS: ANION GAP 9 mmol/L (5-15); CALCIUM 8.7 mg/dL (8.5-10.1); CHLORIDE 104 mmol/L (98-107); CREATININE 3.16 mg/dL (0.7-1.3)
[2019-12-16] MEDS: EZETIMIBE 10 MG TABLET PO SCH (21:14)
[2019-12-16] MEDS: CEFTRIAXONE PMX 1GM/50ML 50 ML IV SCH (22:17)
[2019-12-17 01:47] VITALS: BP 121/70
[2019-12-17] MEDS: SODIUM CHLORIDE 0.9% 1,000 ML IV SCH ×2 (04:15→11:55)
[2019-12-17 05:42] LABS: MEAN CORPUSCULAR HEMOGLOBIN 29.2 pg (27.5-34.5); MEAN CORPUSCULAR HGB CONC 32.2 g/dL (33.2-36.2); MEAN CORPUSCULAR VOLUME 90.8 fL (81-97); PLATELET COUNT 211 x10^3/uL (130-400); RED BLOOD COUNT 3.97 x10^6/uL (4.38-5.82); RED CELL DISTRIBUTION WIDTH 14.7 % (9.4-14.8)
[2019-12-17 05:48] LABS: ANION GAP 8 mmol/L (5-15); CALCIUM 8.3 mg/dL (8.5-10.1); CHLORIDE 101 mmol/L (98-107)
[2019-12-17 05:51] LABS: CREATININE 3.63 mg/dL (0.7-1.3); VANCOMYCIN,RANDOM 20.9 mcg/mL
[2019-12-17 06:03] LABS: BASOPHILS # (AUTO) 0.03 x10^3/uL (0-0.1); BASOPHILS % (AUTO) 0 % (0-1); EOSINOPHILS % (AUTO) 1 % (1-7); LYMPHOCYTES # (AUTO) 0.72 x10^3/uL (1-3.4); LYMPHOCYTES % (AUTO) 5 % (22-44); MD SCAN; MONOCYTES # (AUTO) 1.35 x10^3/uL (0.2-0.8); MONOCYTES % (AUTO) 9 % (2-9); NEUTROPHILS # (AUTO) 13.03 x10^3/uL (1.8-6.8); NEUTROPHILS % (AUTO) 85 % (42-75)
[2019-12-17 07:44] VITALS: BP 102/64
[2019-12-17] MEDS: POTASSIUM CHLORIDE 20 MEQ PACKET PO SCH (08:20)
[2019-12-17] MEDS: ATORVASTATIN 80 MG TABLET PO SCH (08:20)
[2019-12-17] MEDS: BRIMONID TART LEFTEYE SCH ×2 (08:20→21:55)
[2019-12-17] MEDS: BRINZOLAMIDE LEFTEYE SCH ×2 (08:20→21:55)
[2019-12-17] MEDS: ACETAMINOPHEN 500 MG TABLET PO SCH ×3 (08:21→21:55)
[2019-12-17] MEDS: OXYcodone IR 5MG TABLET PO PRN ×2 (08:21→15:30)
[2019-12-17] MEDS: TICAGRELOR 90 MG TABLET PO SCH ×2 (08:21→21:55)
[2019-12-17] MEDS: LISINOPRIL 40 MG TABLET PO SCH (08:21)
[2019-12-17] MEDS: DABIGATRAN 150 MG CAPSULE PO SCH ×2 (08:21→21:55)
[2019-12-17] MEDS: ATENOLOL 25 MG TABLET PO SCH (08:22)
[2019-12-17] MEDS ORDERED: VANCOMYCIN 2,200 MG in SODIUM CHLORIDE 0.9% 500 ML IV ONE (12:00)
[2019-12-17 12:01] VITALS: BP 96/59
[2019-12-17] MEDS ORDERED: DAPTOMYCIN 530 MG in SODIUM CHLORIDE 0.9% 100 ML IV SCH (17:30)
[2019-12-17] MEDS: AMPICILLIN/SULBACTAM 3 GM in SODIUM CHLORIDE 0.9% 100 ML IV SCH (17:45)
[2019-12-17 20:07] VITALS: BP 110/70
[2019-12-17] MEDS: EZETIMIBE 10 MG TABLET PO SCH (21:55)
[2019-12-17] MEDS: CEFTRIAXONE PMX 1GM/50ML 50 ML IV SCH (21:56)
[2019-12-18 01:13] VITALS: BP 128/53
[2019-12-18] MEDS: SODIUM CHLORIDE 0.9% 1,000 ML IV SCH ×2 (01:22→13:53)
[2019-12-18 05:53] LABS: CALCIUM 8.1 mg/dL (8.5-10.1); CHLORIDE 106 mmol/L (98-107)
[2019-12-18 05:56] LABS: ANION GAP 8 mmol/L (5-15); CREATININE 2.66 mg/dL (0.7-1.3)
[2019-12-18 05:58] LABS: BASOPHILS # (AUTO) 0.03 x10^3/uL (0-0.1); BASOPHILS % (AUTO) 0 % (0-1); EOSINOPHILS # (AUTO) 0.31 x10^3/uL (0-0.4); EOSINOPHILS % (AUTO) 3 % (1-7); LYMPHOCYTES # (AUTO) 0.65 x10^3/uL (1-3.4); LYMPHOCYTES % (AUTO) 6 % (22-44); MD NO; MEAN CORPUSCULAR HEMOGLOBIN 29.4 pg (27.5-34.5); MEAN CORPUSCULAR HGB CONC 32.8 g/dL (33.2-36.2); MEAN CORPUSCULAR VOLUME 89.4 fL (81-97); MEAN PLATELET VOLUME 9.3 fL (7.4-10.4); MONOCYTES # (AUTO) 1.11 x10^3/uL (0.2-0.8); MONOCYTES % (AUTO) 10 % (2-9); NEUTROPHILS # (AUTO) 8.52 x10^3/uL (1.8-6.8); NEUTROPHILS % (AUTO) 80 % (42-75); PLATELET COUNT 220 x10^3/uL (130-400); RED BLOOD COUNT 3.66 x10^6/uL (4.38-5.82)
[2019-12-18] MEDS: AMPICILLIN/SULBACTAM 3 GM in SODIUM CHLORIDE 0.9% 100 ML IV SCH ×2 (06:00→17:22)
[2019-12-18 06:26] VITALS: BP 110/70
[2019-12-18] MEDS: TICAGRELOR 90 MG TABLET PO SCH ×2 (07:59→20:39)
[2019-12-18] MEDS: DABIGATRAN 150 MG CAPSULE PO SCH ×2 (07:59→20:39)
[2019-12-18] MEDS: ACETAMINOPHEN 500 MG TABLET PO SCH ×4 (07:59→20:39)
[2019-12-18] MEDS: ATORVASTATIN 80 MG TABLET PO SCH (07:59)
[2019-12-18] MEDS: BRINZOLAMIDE LEFTEYE SCH ×2 (08:04→20:45)
[2019-12-18] MEDS: BRIMONID TART LEFTEYE SCH ×2 (08:04→20:45)
[2019-12-18 12:36] VITALS: BP 142/73
[2019-12-18] MEDS: FLUTICASONE NASAL SPRAY 16GM NAS SCH (12:48)
[2019-12-18 19:51] VITALS: BP 157/73
[2019-12-18] MEDS: CEFAZOLIN PMX 1GM/50ML 50 ML IV SCH (20:38)
[2019-12-18] MEDS: EZETIMIBE 10 MG TABLET PO SCH (20:39)
[2019-12-19 00:54] VITALS: BP 161/78
[2019-12-19 06:05] LABS: MEAN CORPUSCULAR HEMOGLOBIN 28.7 pg (27.5-34.5); MEAN CORPUSCULAR HGB CONC 31.6 g/dL (33.2-36.2); MEAN CORPUSCULAR VOLUME 90.8 fL (81-97); MEAN PLATELET VOLUME 8.9 fL (7.4-10.4); PLATELET COUNT 231 x10^3/uL (130-400); RED CELL DISTRIBUTION WIDTH 14.6 % (9.4-14.8)
[2019-12-19 06:09] LABS: ANION GAP 5 mmol/L (5-15); CALCIUM 8.7 mg/dL (8.5-10.1); CHLORIDE 113 mmol/L (98-107); CREATININE 1.64 mg/dL (0.7-1.3)
[2019-12-19 06:55] LABS: BASOPHILS # (AUTO) 0.04 x10^3/uL (0-0.1); BASOPHILS % (AUTO) 0 % (0-1); EOSINOPHILS # (AUTO) 0.25 x10^3/uL (0-0.4); EOSINOPHILS % (AUTO) 3 % (1-7); LYMPHOCYTES # (AUTO) 0.56 x10^3/uL (1-3.4); LYMPHOCYTES % (AUTO) 6 % (22-44); MD SCAN; MONOCYTES # (AUTO) 0.82 x10^3/uL (0.2-0.8); MONOCYTES % (AUTO) 8 % (2-9); NEUTROPHILS # (AUTO) 8.35 x10^3/uL (1.8-6.8); NEUTROPHILS % (AUTO) 83 % (42-75)
[2019-12-19 07:35] VITALS: BP 144/78
[2019-12-19] MEDS: CEFAZOLIN PMX 1GM/50ML 50 ML IV SCH ×2 (08:47→20:57)
[2019-12-19] MEDS: TICAGRELOR 90 MG TABLET PO SCH ×2 (08:50→20:58)
[2019-12-19] MEDS: ACETAMINOPHEN 500 MG TABLET PO SCH ×3 (08:50→20:57)
[2019-12-19] MEDS: BUMETANIDE 1 MG TABLET PO SCH (08:50)
[2019-12-19] MEDS: DABIGATRAN 150 MG CAPSULE PO SCH ×2 (08:50→20:57)
[2019-12-19] MEDS: ATORVASTATIN 80 MG TABLET PO SCH (08:51)
[2019-12-19] MEDS: FLUTICASONE NASAL SPRAY 16GM NAS SCH (08:53)
[2019-12-19] MEDS: BRINZOLAMIDE LEFTEYE SCH ×2 (08:53→20:57)
[2019-12-19] MEDS: BRIMONID TART LEFTEYE SCH ×2 (08:53→20:57)
[2019-12-19 12:23] VITALS: BP 140/57
[2019-12-19 20:10] VITALS: BP 150/78
[2019-12-19] MEDS: EZETIMIBE 10 MG TABLET PO SCH (20:57)
[2019-12-20] VITALS (7 sets, daily range): BP systolic 124–181; BP diastolic 64–79
[2019-12-20] MEDS: OXYcodone IR 5MG TABLET PO PRN (05:40)
[2019-12-20] MEDS: CEFAZOLIN PMX 1GM/50ML 50 ML IV SCH ×2 (08:15→21:05)
[2019-12-20] MEDS: TICAGRELOR 90 MG TABLET PO SCH ×2 (08:17→21:22)
[2019-12-20] MEDS: BUMETANIDE 1 MG TABLET PO SCH (08:17)
[2019-12-20] MEDS: ATORVASTATIN 80 MG TABLET PO SCH (08:18)
[2019-12-20] MEDS: DABIGATRAN 150 MG CAPSULE PO SCH ×2 (08:18→21:22)
[2019-12-20 08:21] LABS: MEAN CORPUSCULAR HGB CONC 31.9 g/dL (33.2-36.2); MEAN PLATELET VOLUME 8.6 fL (7.4-10.4); PLATELET COUNT 248 x10^3/uL (130-400); RED BLOOD COUNT 3.93 x10^6/uL (4.38-5.82); RED CELL DISTRIBUTION WIDTH 14.8 % (9.4-14.8)
[2019-12-20] MEDS: FLUTICASONE NASAL SPRAY 16GM NAS SCH (08:23)
[2019-12-20] MEDS: BRIMONID TART LEFTEYE SCH ×2 (08:23→21:23)
[2019-12-20] MEDS: ACETAMINOPHEN 500 MG TABLET PO SCH ×3 (08:23→21:22)
[2019-12-20] MEDS: BRINZOLAMIDE LEFTEYE SCH ×2 (08:23→21:23)
[2019-12-20 08:32] LABS: ANION GAP 6 mmol/L (5-15); CALCIUM 8.7 mg/dL (8.5-10.1); CHLORIDE 111 mmol/L (98-107); CREATININE 1.42 mg/dL (0.7-1.3)
[2019-12-20 08:45] LABS: BASOPHILS # (AUTO) 0.01 x10^3/uL (0-0.1); BASOPHILS % (AUTO) 0 % (0-1); EOSINOPHILS # (AUTO) 0.27 x10^3/uL (0-0.4); EOSINOPHILS % (AUTO) 2 % (1-7); LYMPHOCYTES # (AUTO) 0.54 x10^3/uL (1-3.4); LYMPHOCYTES % (AUTO) 5 % (22-44); MD SCAN; MONOCYTES % (AUTO) 10 % (2-9); NEUTROPHILS # (AUTO) 9.82 x10^3/uL (1.8-6.8); NEUTROPHILS % (AUTO) 83 % (42-75)
[2019-12-20] MEDS ORDERED: CALCIUM CARBONATE 500 MG TAB.CHEW PO ONE (13:30)
[2019-12-20] MEDS ORDERED: CALCIUM CARBONATE 500 MG TAB.CHEW PO PRN (13:30)
[2019-12-20] MEDS: EZETIMIBE 10 MG TABLET PO SCH (21:22)
[2019-12-21] MEDS ORDERED: hydrALAzine 20 MG/ML, 1ML IV PRN
[2019-12-21 00:18] VITALS: BP 124/65
[2019-12-21] MEDS: LACTOBACILLUS CHEW TABLET PO SCH ×3 (02:21→15:35)
[2019-12-21] MEDS: OXYcodone IR 5MG TABLET PO PRN (02:22)
[2019-12-21 05:12] LABS: MEAN CORPUSCULAR HEMOGLOBIN 28.7 pg (27.5-34.5); MEAN CORPUSCULAR HGB CONC 31.9 g/dL (33.2-36.2); MEAN CORPUSCULAR VOLUME 89.9 fL (81-97); MEAN PLATELET VOLUME 8.4 fL (7.4-10.4); PLATELET COUNT 259 x10^3/uL (130-400); RED BLOOD COUNT 3.83 x10^6/uL (4.38-5.82)
[2019-12-21 05:19] LABS: ANION GAP 6 mmol/L (5-15); CALCIUM 9.1 mg/dL (8.5-10.1); CHLORIDE 112 mmol/L (98-107)
[2019-12-21 05:51] LABS: BASOPHILS # (AUTO) 0.01 x10^3/uL (0-0.1); BASOPHILS % (AUTO) 0 % (0-1); EOSINOPHILS # (AUTO) 0.37 x10^3/uL (0-0.4); EOSINOPHILS % (AUTO) 3 % (1-7); LYMPHOCYTES # (AUTO) 0.64 x10^3/uL (1-3.4); LYMPHOCYTES % (AUTO) 6 % (22-44); MD SCAN; MONOCYTES # (AUTO) 1.06 x10^3/uL (0.2-0.8); MONOCYTES % (AUTO) 10 % (2-9); NEUTROPHILS # (AUTO) 9.06 x10^3/uL (1.8-6.8); NEUTROPHILS % (AUTO) 81 % (42-75)
[2019-12-21 07:42] VITALS: BP 129/59
[2019-12-21] MEDS: CEFAZOLIN PMX 1GM/50ML 50 ML IV SCH (08:19)
[2019-12-21] MEDS: BUMETANIDE 1 MG TABLET PO SCH (08:20)
[2019-12-21] MEDS: BRIMONID TART LEFTEYE SCH (08:21)
[2019-12-21] MEDS: BRINZOLAMIDE LEFTEYE SCH (08:21)
[2019-12-21] MEDS: DABIGATRAN 150 MG CAPSULE PO SCH (08:21)
[2019-12-21] MEDS: TICAGRELOR 90 MG TABLET PO SCH (08:21)
[2019-12-21] MEDS: FLUTICASONE NASAL SPRAY 16GM NAS SCH (08:21)
[2019-12-21] MEDS: ACETAMINOPHEN 500 MG TABLET PO SCH ×2 (08:22→15:38)
[2019-12-21] MEDS: ATORVASTATIN 80 MG TABLET PO SCH (08:22)
[2019-12-21 12:52] VITALS: BP 142/84
[2019-12-21] MEDS ORDERED: OXYC5TAB3 PO (17:15)
[2019-12-21] MEDS ORDERED: CALC200T24 PO (17:15)
[2019-12-21] MEDS ORDERED: DOCU100C33 PO (17:15)
[2019-12-21] MEDS ORDERED: INSU100C5 SQ-INSULIN (17:15)
[2019-12-21] MEDS ORDERED: CEFA1FRO IV (17:15)
[2019-12-21] MEDS ORDERED: ACET500T64 PO (17:15)
[2019-12-21] MEDS ORDERED: ACID1TAB7 PO (17:15)
[2019-12-21] MEDS ORDERED: HYDR-3342 PO (17:15)
[2019-12-21 19:10] VITALS: BP 178/67
== END 2019-12-21 19:59 | DRG 871 ==
LOC: ED 23:41 → EDIP 23:42 → 4EST 12-16 01:34
PROVIDERS: ADMIT Family Medicine; ATTEND Internal Medicine
PROC: 02HV33Z Insertion of Infusion Device into Superior Vena Cava, Percutaneous Approach (ICD-10-PCS; principal; 2019-12-21)
PROC: B5181ZA Fluoroscopy of Superior Vena Cava using Low Osmolar Contrast, Guidance (ICD-10-PCS; 2019-12-21)
PROC: B548ZZA Ultrasonography of Superior Vena Cava, Guidance (ICD-10-PCS; 2019-12-21)
DX: A41.01 Sepsis due to Methicillin susceptible Staphylococcus aureus (principal); N17.0 Acute kidney failure with tubular necrosis; I13.0 Hypertensive heart and chronic kidney disease with heart failure and stage 1 through stage 4 chronic kidney disease, or unspecified chronic kidney disease; I50.32 Chronic diastolic (congestive) heart failure; J96.11 Chronic respiratory failure with hypoxia; L03.115 Cellulitis of right lower limb; L03.116 Cellulitis of left lower limb; E11.22 Type 2 diabetes mellitus with diabetic chronic kidney disease; I07.1 Rheumatic tricuspid insufficiency; I25.10 Atherosclerotic heart disease of native coronary artery without angina pectoris; I25.2 Old myocardial infarction; I35.0 Nonrheumatic aortic (valve) stenosis; I87.2 Venous insufficiency (chronic) (peripheral); J44.9 Chronic obstructive pulmonary disease, unspecified; N18.3 Chronic kidney disease, stage 3 (moderate); Z20.828 Contact with and (suspected) exposure to other viral communicable diseases; Z79.4 Long term (current) use of insulin; Z82.49 Family history of ischemic heart disease and other diseases of the circulatory system; Z87.891 Personal history of nicotine dependence; Z95.1 Presence of aortocoronary bypass graft; Z95.2 Presence of prosthetic heart valve; Z99.81 Dependence on supplemental oxygen
CPT/HCPCS: 36415; 36573; 71045; 80048; 80053; 80202; 81001; 82962; 83605; 83735; 84145; 85025; 87040; 87070; 87077; 87147; 87186; 87205; 87635; 93005; 93306; 96374; 99285; G0378; J0295; J0690; J0696; J2405; J3370; C1751; J7030; J7040

== ENCOUNTER 2020-01-07 08:58 | Outpatient (CLI) | payer OTHER ==
[~2020-01-07 08:58] MED LIST changes: +ACET500T64 PO; +ACID1TAB7 PO; +CALC200T24 PO; +CEFA1FRO IV; +DOCU100C33 PO; +HYDR-3342 PO; +INSU100C5 SQ-INSULIN; +OXYC5TAB3 PO
== END 2020-01-07 23:59 | disposition home or self-care (01) ==
LOC: WOUND 08:58
PROVIDERS: ATTEND Internal Medicine
DX: I87.333 Chronic venous hypertension (idiopathic) with ulcer and inflammation of bilateral lower extremity (principal); E11.622 Type 2 diabetes mellitus with other skin ulcer; I70.238 Atherosclerosis of native arteries of right leg with ulceration of other part of lower leg; L97.811 Non-pressure chronic ulcer of other part of right lower leg limited to breakdown of skin; I70.248 Atherosclerosis of native arteries of left leg with ulceration of other part of lower leg; L97.821 Non-pressure chronic ulcer of other part of left lower leg limited to breakdown of skin; L97.212 Non-pressure chronic ulcer of right calf with fat layer exposed; I70.232 Atherosclerosis of native arteries of right leg with ulceration of calf; L03.115 Cellulitis of right lower limb; L03.116 Cellulitis of left lower limb; I89.0 Lymphedema, not elsewhere classified; E78.5 Hyperlipidemia, unspecified; L84 Corns and callosities; I25.10 Atherosclerotic heart disease of native coronary artery without angina pectoris; J44.9 Chronic obstructive pulmonary disease, unspecified; I25.2 Old myocardial infarction; I35.0 Nonrheumatic aortic (valve) stenosis; I13.0 Hypertensive heart and chronic kidney disease with heart failure and stage 1 through stage 4 chronic kidney disease, or unspecified chronic kidney disease; E11.22 Type 2 diabetes mellitus with diabetic chronic kidney disease; N18.3 Chronic kidney disease, stage 3 (moderate); I50.32 Chronic diastolic (congestive) heart failure; Z79.01 Long term (current) use of anticoagulants; Z87.891 Personal history of nicotine dependence; Z95.2 Presence of prosthetic heart valve; Z95.1 Presence of aortocoronary bypass graft; Z86.711 Personal history of pulmonary embolism; Z86.718 Personal history of other venous thrombosis and embolism; Z79.4 Long term (current) use of insulin
CPT/HCPCS: 29581; 97597; G0463

== ENCOUNTER → 2020-01-14 | Outpatient (CLI) | payer OTHER ==
[~2020-01-14] MED LIST changes: +ALBU0.63 NEB; +BUME2TAB3 PO; +FLUT1BLS3 IH; +HYDR-3341 PO
== END | disposition home or self-care (01) ==
LOC: WOUND 08:17
PROVIDERS: ATTEND Internal Medicine
DX: I87.333 Chronic venous hypertension (idiopathic) with ulcer and inflammation of bilateral lower extremity (principal); E11.622 Type 2 diabetes mellitus with other skin ulcer; I70.238 Atherosclerosis of native arteries of right leg with ulceration of other part of lower leg; L97.812 Non-pressure chronic ulcer of other part of right lower leg with fat layer exposed; I70.248 Atherosclerosis of native arteries of left leg with ulceration of other part of lower leg; L97.821 Non-pressure chronic ulcer of other part of left lower leg limited to breakdown of skin; I70.232 Atherosclerosis of native arteries of right leg with ulceration of calf; L97.212 Non-pressure chronic ulcer of right calf with fat layer exposed; L03.115 Cellulitis of right lower limb; L03.116 Cellulitis of left lower limb; I89.0 Lymphedema, not elsewhere classified; E78.5 Hyperlipidemia, unspecified; L84 Corns and callosities; I25.10 Atherosclerotic heart disease of native coronary artery without angina pectoris; J44.9 Chronic obstructive pulmonary disease, unspecified; I25.2 Old myocardial infarction; I35.0 Nonrheumatic aortic (valve) stenosis; I13.0 Hypertensive heart and chronic kidney disease with heart failure and stage 1 through stage 4 chronic kidney disease, or unspecified chronic kidney disease; E11.22 Type 2 diabetes mellitus with diabetic chronic kidney disease; N18.30 Chronic kidney disease, stage 3 unspecified; I50.32 Chronic diastolic (congestive) heart failure; Z79.01 Long term (current) use of anticoagulants; Z87.891 Personal history of nicotine dependence; Z95.2 Presence of prosthetic heart valve; Z95.1 Presence of aortocoronary bypass graft; Z86.711 Personal history of pulmonary embolism; Z86.718 Personal history of other venous thrombosis and embolism; Z79.4 Long term (current) use of insulin
CPT/HCPCS: 29581; 97597

== ENCOUNTER 2020-01-15 13:33 | Inpatient (IN) | payer OTHER ==
[~2020-01-15] VITALS: Ht 182.9 cm; Wt 131.0 kg
[~2020-01-15 13:33] MED LIST changes: -ALBU0.63 NEB; -BUME2TAB3 PO; -FLUT1BLS3 IH; -HYDR-3341 PO
--- NOTE | 2020-01-15 13:55 | NUR ---
Pt arrives from the infusion room for new onset sob. Pt had a chest xray done in the infusion room and it showed a worsening pneumonia. Pt reports he feels worse and not improving. Pt is at infusion room for cellulitis treatment. Pt reports that ADLS have gotten worse to peform. Pt hypoxic on his normal 4 liters. Pt connected to vitals monitors. Pt has crackles and dimnished lung sounds.
--- NOTE | 2020-01-15 14:44 | NUR ---
PT PLACED ON SIMPLE O2 MASK, PT NEEDING MORE SUPPLEMENTAL O2 TO HELP OXYGEN SATRUATION.
[2020-01-15 14:59] LABS: BASOPHILS % (AUTO) 1 % (0-1); EOSINOPHILS % (AUTO) 5 % (1-7); LYMPHOCYTES % (AUTO) 8 % (22-44); MEAN CORPUSCULAR HEMOGLOBIN 28.8 pg (27.5-34.5); MEAN CORPUSCULAR HGB CONC 32.2 g/dL (33.2-36.2); MEAN PLATELET VOLUME 8.8 fL (7.4-10.4); MONOCYTES % (AUTO) 8 % (2-9); NEUTROPHILS % (AUTO) 78 % (42-75); PLATELET COUNT 246 x10^3/uL (130-400); RED BLOOD COUNT 3.41 x10^6/uL (4.38-5.82); RED CELL DISTRIBUTION WIDTH 15.4 % (9.4-14.8)
[2020-01-15] MEDS ORDERED: CEFTRIAXONE PMX 1GM/50ML 50 ML IV ONE (15:00)
[2020-01-15] MEDS ORDERED: FUROSEMIDE 40 MG/4 ML IV ONE (15:00)
[2020-01-15 15:08] LABS: INTERNATIONAL NORMALIZED RATIO 1.34 (0.93-1.1); PROTHROMBIN TIME 13.8 Seconds (9.6-11.5)
[2020-01-15 15:15] LABS: ALANINE AMINOTRANSFERASE 70 U/L (12-78); ALBUMIN 2.9 g/dL (3.4-5.0); ANION GAP 7 mmol/L (5-15); CALCIUM 8.4 mg/dL (8.5-10.1); CHLORIDE 105 mmol/L (98-107); CREATININE 1.47 mg/dL (0.7-1.3)
[2020-01-15 15:20] LABS: ALKALINE PHOSPHATASE 189 U/L (45-117); BILIRUBIN,TOTAL 0.9 mg/dL (0.2-1.0); TOTAL PROTEIN 7.1 g/dL (6.4-8.2); TROPONIN I 0.035 ng/mL (0.000-0.045)
[2020-01-15] MEDS ORDERED: FUROSEMIDE 20 MG/2 ML ONE (15:51)
[2020-01-15] MEDS ORDERED: CEFTRIAXONE PMX 1GM/50ML 50 ML ONE (15:51)
[2020-01-15 15:58] LABS: MD SCAN
[2020-01-15] MEDS ORDERED: SODIUM CHLORIDE FLUSH 10ML SYR IVF ONE (16:00)
[2020-01-15] MEDS ORDERED: AZITHROMYCIN 500 MG in SODIUM CHLORIDE 0.9% 250 ML IV ONE (16:00)
--- NOTE | 2020-01-15 16:04 | NUR ---
Ptmedicated per emar.
--- NOTE | 2020-01-15 16:22 | NUR ---
Pt resting in room no distress
[2020-01-15] MEDS ORDERED: DABI150C PO (16:51)
[2020-01-15] MEDS ORDERED: ALBU0.63 NEB (16:51)
[2020-01-15] MEDS ORDERED: BUME2TAB3 PO (16:51)
[2020-01-15] MEDS ORDERED: HYDR-3341 PO (16:51)
[2020-01-15] MEDS ORDERED: FLUT1BLS3 IH (16:51)
[2020-01-15] MEDS ORDERED: FUROSEMIDE 100 MG/10 ML IV ONE (17:00)
[2020-01-15 17:21] LABS: ANION GAP 6 mmol/L (5-15); CALCIUM 8.7 mg/dL (8.5-10.1); CHLORIDE 109 mmol/L (98-107); CREATININE 1.36 mg/dL (0.7-1.3)
--- NOTE | 2020-01-15 17:24 | NUR ---
MD pollackayed for RNs to use patients dermal glucometer reader and okay to continue insulin patch as well.
--- NOTE | 2020-01-15 17:25 | NUR ---
Cardiac diet ordered.
[2020-01-15] MEDS ORDERED: CALCIUM CARBONATE 500 MG TAB.CHEW PO PRN (17:30)
[2020-01-15] MEDS ORDERED: ACETAMINOPHEN 325 MG TABLET PO PRN (17:30)
[2020-01-15] MEDS ORDERED: ONDANSETRON ODT 4 MG PO PRN (17:30)
[2020-01-15] MEDS ORDERED: DULAGLUTIDE SC SCH (17:30)
[2020-01-15] MEDS ORDERED: SENNA/DOCUSATE TABLET PO PRN (17:30)
[2020-01-15] MEDS ORDERED: POLYETHYLENE GLYCOL 17 GM PACKET PO PRN (17:30)
[2020-01-15] MEDS ORDERED: ONDANSETRON 2MG/ML, 2ML IVPush PRN (17:30)
--- NOTE | 2020-01-15 17:32 | NUR ---
Med requested from [facility]
--- NOTE | 2020-01-15 17:47 | NUR ---
CYNDI BACH INFORMED TO CALL [facility] TO CLARIFY ORDERS REGARDING LASIX.
--- NOTE | 2020-01-15 17:54 | NUR ---
REPORT TO MIKALA HANNA
[2020-01-15 18:02] VITALS: BP 154/85
[2020-01-15] MEDS: CANAGLIFLOZIN MC SCH ×2 (18:30→22:09)
[2020-01-15] MEDS: DULAGLUTIDE MC SCH ×2 (18:30→22:09)
[2020-01-15 18:45] LABS: MICROSCOPIC NOT IND
[2020-01-15 20:04] VITALS: BP 170/76
[2020-01-15] MEDS: INSULIN LISPRO 100 UNITS/ML, PEN SQ-INSULIN SCH (21:00)
[2020-01-15] MEDS: LACTOBACILLUS CHEW TABLET PO SCH (22:04)
[2020-01-15] MEDS: DABIGATRAN 150 MG CAPSULE PO SCH (22:04)
[2020-01-15] MEDS: EZETIMIBE 10 MG TABLET PO SCH (22:04)
[2020-01-15] MEDS: DAPTOMYCIN 900 MG in SODIUM CHLORIDE 0.9% 100 ML IV SCH (23:18)
[2020-01-16 01:32] VITALS: BP 133/77
[2020-01-16 05:44] LABS: ALANINE AMINOTRANSFERASE 51 U/L (12-78); ALBUMIN 2.7 g/dL (3.4-5.0); ANION GAP 7 mmol/L (5-15); CALCIUM 8.3 mg/dL (8.5-10.1); CHLORIDE 106 mmol/L (98-107)
[2020-01-16 05:46] LABS: ALKALINE PHOSPHATASE 162 U/L (45-117); TOTAL PROTEIN 6.6 g/dL (6.4-8.2)
[2020-01-16 05:58] LABS: BASOPHILS % (AUTO) 1 % (0-1); EOSINOPHILS % (AUTO) 6 % (1-7); LYMPHOCYTES % (AUTO) 8 % (22-44); MEAN CORPUSCULAR HEMOGLOBIN 28.7 pg (27.5-34.5); MEAN CORPUSCULAR HGB CONC 32.2 g/dL (33.2-36.2); MEAN PLATELET VOLUME 8.6 fL (7.4-10.4); MONOCYTES % (AUTO) 10 % (2-9); NEUTROPHILS % (AUTO) 75 % (42-75); PLATELET COUNT 236 x10^3/uL (130-400); RED BLOOD COUNT 3.12 x10^6/uL (4.38-5.82); RED CELL DISTRIBUTION WIDTH 15.6 % (9.4-14.8)
[2020-01-16] MEDS ORDERED: FUROSEMIDE 80 MG TABLET PO SCH (06:00)
[2020-01-16 06:20] LABS: MD NO
[2020-01-16] MEDS: INSULIN LISPRO 100 UNITS/ML, PEN SQ-INSULIN SCH ×2 (07:00→11:00)
[2020-01-16] MEDS ORDERED: FUROSEMIDE 100 MG/10 ML IV SCH ×2 (07:30→09:00)
[2020-01-16] MEDS: LACTOBACILLUS CHEW TABLET PO SCH ×3 (07:56→21:02)
[2020-01-16] MEDS: ATENOLOL 25 MG TABLET PO SCH (07:57)
[2020-01-16] MEDS: DABIGATRAN 150 MG CAPSULE PO SCH ×2 (07:57→21:02)
[2020-01-16] MEDS ORDERED: POTASSIUM CHLORIDE 20 MEQ TAB.ER.PRT PO SCH ×2 (08:00→17:00)
[2020-01-16] MEDS ORDERED: ATORVASTATIN 80 MG TABLET PO SCH (09:00)
[2020-01-16] MEDS ORDERED: FUROSEMIDE 40 MG/4 ML ONE (09:13)
[2020-01-16 09:20] VITALS: BP 134/53
[2020-01-16] MEDS: CANAGLIFLOZIN MC SCH ×3 (10:30→21:06)
[2020-01-16] MEDS: DULAGLUTIDE MC SCH ×3 (10:30→21:06)
[2020-01-16] MEDS: ALBUTEROL HFA 90 MCG/SPRAY INH SCH ×2 (15:00→19:54)
[2020-01-16 15:28] VITALS: BP 119/70
[2020-01-16] MEDS: FUROSEMIDE 40 MG/4 ML IV SCH (16:36)
[2020-01-16 20:33] VITALS: BP 118/72
[2020-01-16] MEDS ORDERED: POTASSIUM CHLORIDE 20 MEQ PACKET ONE (20:57)
[2020-01-16] MEDS: POTASSIUM CHLORIDE 10% 40 MEQ/30 ML UDC PO SCH (21:00)
[2020-01-16] MEDS: EZETIMIBE 10 MG TABLET PO SCH (21:02)
[2020-01-17] MEDS: MELATONIN 5 MG TABLET PO PRN ×2 (00:09→22:00)
[2020-01-17 00:12] VITALS: BP 114/70
[2020-01-17 06:04] LABS: ANION GAP 4 mmol/L (5-15); CALCIUM 8.7 mg/dL (8.5-10.1); CHLORIDE 108 mmol/L (98-107)
[2020-01-17 06:05] LABS: CREATININE 1.64 mg/dL (0.7-1.3)
[2020-01-17 06:10] LABS: BASOPHILS % (AUTO) 1 % (0-1); EOSINOPHILS % (AUTO) 5 % (1-7); LYMPHOCYTES % (AUTO) 9 % (22-44); MEAN CORPUSCULAR HEMOGLOBIN 28.9 pg (27.5-34.5); MEAN CORPUSCULAR HGB CONC 32.4 g/dL (33.2-36.2); MEAN PLATELET VOLUME 8.6 fL (7.4-10.4); MONOCYTES % (AUTO) 11 % (2-9); NEUTROPHILS % (AUTO) 74 % (42-75); PLATELET COUNT 231 x10^3/uL (130-400); RED BLOOD COUNT 3.11 x10^6/uL (4.38-5.82); RED CELL DISTRIBUTION WIDTH 15.4 % (9.4-14.8)
[2020-01-17 06:28] LABS: MD NO
[2020-01-17] MEDS: ALBUTEROL HFA 90 MCG/SPRAY INH SCH ×4 (07:00→19:21)
[2020-01-17] MEDS: FUROSEMIDE 40 MG/4 ML IV SCH ×2 (07:48→16:33)
[2020-01-17] MEDS: POTASSIUM CHLORIDE 10% 40 MEQ/30 ML UDC PO SCH ×2 (07:48→22:00)
[2020-01-17] MEDS: ATENOLOL 25 MG TABLET PO SCH (07:49)
[2020-01-17] MEDS: DABIGATRAN 150 MG CAPSULE PO SCH ×2 (07:49→22:00)
[2020-01-17] MEDS: LACTOBACILLUS CHEW TABLET PO SCH ×3 (07:49→22:00)
[2020-01-17] MEDS: CANAGLIFLOZIN MC SCH ×2 (07:59→16:58)
[2020-01-17] MEDS: DULAGLUTIDE MC SCH ×2 (07:59→16:58)
[2020-01-17 09:20] VITALS: BP 133/78
[2020-01-17 14:29] VITALS: BP 118/74
[2020-01-17 21:30] VITALS: BP 122/76
[2020-01-17] MEDS: EZETIMIBE 10 MG TABLET PO SCH (22:00)
[2020-01-17] MEDS: DAPTOMYCIN 900 MG in SODIUM CHLORIDE 0.9% 100 ML IV SCH (23:31)
[2020-01-18 02:41] VITALS: BP 123/67
[2020-01-18 05:34] VITALS: BP 124/50
[2020-01-18] MEDS: METOPROLOL SUCCINATE 25 MG TAB.ER.24H PO SCH (05:36)
[2020-01-18 05:50] LABS: ANION GAP 4 mmol/L (5-15); CALCIUM 8.9 mg/dL (8.5-10.1); CHLORIDE 108 mmol/L (98-107)
[2020-01-18 05:55] LABS: CREATININE 1.43 mg/dL (0.7-1.3)
[2020-01-18] MEDS: ALBUTEROL HFA 90 MCG/SPRAY INH SCH ×4 (07:00→19:50)
[2020-01-18 07:50] VITALS: BP 124/77
[2020-01-18] MEDS ORDERED: ALBUMIN HUMAN 25% 100 ML IV ONE (08:30)
[2020-01-18] MEDS ORDERED: POTASSIUM CHLORIDE 20 MEQ TAB.ER.PRT ONE (08:38)
[2020-01-18] MEDS: FUROSEMIDE 40 MG/4 ML IV SCH ×3 (08:42→16:24)
[2020-01-18] MEDS: LACTOBACILLUS CHEW TABLET PO SCH ×3 (08:43→21:23)
[2020-01-18] MEDS: POTASSIUM CHLORIDE 10% 40 MEQ/30 ML UDC PO SCH ×2 (08:43→21:24)
[2020-01-18] MEDS: DABIGATRAN 150 MG CAPSULE PO SCH ×2 (08:43→21:24)
[2020-01-18] MEDS ORDERED: METOLAZONE 5 MG TABLET PO STA (08:47)
[2020-01-18] MEDS ORDERED: METOLAZONE 5 MG TABLET ONE (08:51)
[2020-01-18] MEDS: SENNA/DOCUSATE TABLET PO SCH (10:33)
[2020-01-18 14:20] VITALS: BP 124/71
[2020-01-18 18:54] VITALS: BP 120/69
[2020-01-18] MEDS: EZETIMIBE 10 MG TABLET PO SCH (21:23)
[2020-01-18] MEDS: MELATONIN 5 MG TABLET PO PRN (21:24)
[2020-01-19] MEDS: DAPTOMYCIN 900 MG in SODIUM CHLORIDE 0.9% 100 ML IV SCH (00:07)
[2020-01-19 01:17] VITALS: BP 115/70
[2020-01-19 05:44] VITALS: BP 120/67
[2020-01-19] MEDS: METOPROLOL SUCCINATE 25 MG TAB.ER.24H PO SCH (05:49)
[2020-01-19 06:24] LABS: ALANINE AMINOTRANSFERASE 35 U/L (12-78); ALBUMIN 3.1 g/dL (3.4-5.0); ANION GAP 6 mmol/L (5-15); CALCIUM 9.4 mg/dL (8.5-10.1); CHLORIDE 107 mmol/L (98-107); CREATININE 1.68 mg/dL (0.7-1.3)
[2020-01-19 06:31] LABS: ALKALINE PHOSPHATASE 141 U/L (45-117); BILIRUBIN,TOTAL 0.9 mg/dL (0.2-1.0); TOTAL PROTEIN 7.2 g/dL (6.4-8.2)
[2020-01-19 06:45] VITALS: BP 123/70
[2020-01-19 06:48] LABS: BASOPHILS % (AUTO) 1 % (0-1); EOSINOPHILS % (AUTO) 8 % (1-7); HCT (SEDRATE) 29.5 % (39.2-51.8); LYMPHOCYTES % (AUTO) 9 % (22-44); MEAN CORPUSCULAR HEMOGLOBIN 28.7 pg (27.5-34.5); MEAN CORPUSCULAR HGB CONC 32.1 g/dL (33.2-36.2); MEAN PLATELET VOLUME 8.7 fL (7.4-10.4); MONOCYTES % (AUTO) 11 % (2-9); NEUTROPHILS % (AUTO) 71 % (42-75); PLATELET COUNT 246 x10^3/uL (130-400); RED BLOOD COUNT 3.36 x10^6/uL (4.38-5.82); RED CELL DISTRIBUTION WIDTH 16.3 % (9.4-14.8)
[2020-01-19] MEDS: ALBUTEROL HFA 90 MCG/SPRAY INH SCH ×4 (06:57→19:25)
[2020-01-19 07:12] LABS: MD NO
[2020-01-19] MEDS ORDERED: BISACODYL 10 MG SUPP PR PRN (09:30)
[2020-01-19] MEDS ORDERED: LACTULOSE 20 GM/30 ML UDC PO PRN (09:30)
[2020-01-19] MEDS: FUROSEMIDE 40 MG/4 ML IV SCH (09:31)
[2020-01-19] MEDS: DABIGATRAN 150 MG CAPSULE PO SCH (09:31)
[2020-01-19] MEDS: SENNA/DOCUSATE TABLET PO SCH (09:31)
[2020-01-19] MEDS: POTASSIUM CHLORIDE 10% 40 MEQ/30 ML UDC PO SCH ×2 (09:31→22:02)
[2020-01-19] MEDS: LACTOBACILLUS CHEW TABLET PO SCH ×3 (09:32→22:00)
[2020-01-19] MEDS: TORSEMIDE 20 MG TABLET PO SCH ×2 (11:37→16:43)
[2020-01-19] MEDS ORDERED: SPIRONOLACTONE 25 MG TABLET PO SCH (12:00)
[2020-01-19 12:11] VITALS: BP 130/77
[2020-01-19] MEDS ORDERED: SIMETHICONE 125 MG CHEW TAB ONE (16:47)
[2020-01-19] MEDS ORDERED: SIMETHICONE 125 MG CHEW TAB PO PRN (17:00)
[2020-01-19 19:11] VITALS: BP 146/74
[2020-01-19] MEDS ORDERED: POTASSIUM CHLORIDE 20 MEQ TAB.ER.PRT ONE (21:52)
[2020-01-19] MEDS: EZETIMIBE 10 MG TABLET PO SCH (22:02)
[2020-01-20] MEDS: DAPTOMYCIN 900 MG in SODIUM CHLORIDE 0.9% 100 ML IV SCH (00:02)
[2020-01-20 00:56] VITALS: BP 116/70
[2020-01-20] MEDS: METOPROLOL SUCCINATE 25 MG TAB.ER.24H PO SCH (05:24)
[2020-01-20 06:01] LABS: ANION GAP 6 mmol/L (5-15); CALCIUM 9.3 mg/dL (8.5-10.1); CHLORIDE 103 mmol/L (98-107); CREATININE 1.87 mg/dL (0.7-1.3)
[2020-01-20] MEDS: ALBUTEROL HFA 90 MCG/SPRAY INH SCH ×4 (07:10→19:10)
[2020-01-20] MEDS ORDERED: SODIUM CHLORIDE 0.9%, 500ML IVBOLUS ONE (08:00)
[2020-01-20] MEDS: SENNA/DOCUSATE TABLET PO SCH (08:04)
[2020-01-20] MEDS: POTASSIUM CHLORIDE 10% 40 MEQ/30 ML UDC PO SCH ×2 (08:09→21:22)
[2020-01-20] MEDS: LACTOBACILLUS CHEW TABLET PO SCH ×3 (08:09→21:19)
[2020-01-20] MEDS: TORSEMIDE 20 MG TABLET PO SCH ×2 (08:10→16:13)
[2020-01-20 08:22] VITALS: BP 146/70
[2020-01-20 13:33] VITALS: BP 146/74
[2020-01-20] MEDS ORDERED: POTASSIUM CHLORIDE 20 MEQ TAB.ER.PRT ONE (21:11)
[2020-01-20 21:16] VITALS: BP 115/70
[2020-01-20] MEDS: EZETIMIBE 10 MG TABLET PO SCH (21:18)
[2020-01-21] MEDS: DAPTOMYCIN 900 MG in SODIUM CHLORIDE 0.9% 100 ML IV SCH (00:40)
[2020-01-21 00:43] VITALS: BP 111/63
[2020-01-21] MEDS: METOPROLOL SUCCINATE 25 MG TAB.ER.24H PO SCH (05:18)
[2020-01-21 05:59] LABS: ANION GAP 4 mmol/L (5-15); CALCIUM 9.5 mg/dL (8.5-10.1); CHLORIDE 102 mmol/L (98-107); CREATININE 1.84 mg/dL (0.7-1.3)
[2020-01-21 06:07] LABS: CREATINE KINASE, TOTAL 62 U/L (39-308)
[2020-01-21] MEDS: ALBUTEROL HFA 90 MCG/SPRAY INH SCH ×4 (07:20→19:58)
[2020-01-21] MEDS: TORSEMIDE 20 MG TABLET PO SCH (09:18)
[2020-01-21] MEDS: LACTOBACILLUS CHEW TABLET PO SCH ×3 (09:18→21:03)
[2020-01-21] MEDS: SENNA/DOCUSATE TABLET PO SCH (09:19)
[2020-01-21] MEDS: POTASSIUM CHLORIDE 10% 40 MEQ/30 ML UDC PO SCH ×2 (09:20→21:03)
[2020-01-21 09:37] VITALS: BP 129/71
[2020-01-21 12:20] VITALS: BP 139/69
[2020-01-21 18:52] VITALS: BP 137/73
[2020-01-21 19:33] LABS: MICROSCOPIC AUTO
[2020-01-21 19:39] LABS: CHLORIDE,URINE RANDOM 99 mmol/L; POTASSIUM,URINE RANDOM 39 mmol/L; SODIUM,URINE RANDOM 75 mmol/L
[2020-01-21] MEDS: EZETIMIBE 10 MG TABLET PO SCH (21:03)
[2020-01-22 00:01] VITALS: BP 129/65
[2020-01-22] MEDS: DAPTOMYCIN 900 MG in SODIUM CHLORIDE 0.9% 100 ML IV SCH (00:21)
[2020-01-22 05:58] LABS: ANION GAP 4 mmol/L (5-15); CALCIUM 9.4 mg/dL (8.5-10.1); CHLORIDE 105 mmol/L (98-107); CREATININE 1.66 mg/dL (0.7-1.3)
[2020-01-22] MEDS: METOPROLOL SUCCINATE 25 MG TAB.ER.24H PO SCH (06:07)
[2020-01-22] MEDS: ALBUTEROL HFA 90 MCG/SPRAY INH SCH ×4 (07:00→18:55)
[2020-01-22 09:50] VITALS: BP 129/80
[2020-01-22] MEDS: LACTOBACILLUS CHEW TABLET PO SCH ×3 (11:08→21:13)
[2020-01-22] MEDS: POTASSIUM CHLORIDE 10% 40 MEQ/30 ML UDC PO SCH ×2 (11:09→21:13)
[2020-01-22] MEDS: SENNA/DOCUSATE TABLET PO SCH (11:09)
[2020-01-22] MEDS ORDERED: MOVIPREP POWDER 1 PREP KIT PO ONE (11:30)
[2020-01-22 12:03] VITALS: BP 132/81
[2020-01-22] MEDS: TORSEMIDE 20 MG TABLET PO SCH (13:17)
[2020-01-22 20:54] VITALS: BP 129/72
[2020-01-22] MEDS: EZETIMIBE 10 MG TABLET PO SCH (21:13)
[2020-01-23] MEDS: DAPTOMYCIN 900 MG in SODIUM CHLORIDE 0.9% 100 ML IV SCH (00:20)
[2020-01-23 01:40] VITALS: BP 130/76
[2020-01-23 05:41] LABS: INTERNATIONAL NORMALIZED RATIO 1.16 (0.93-1.1)
[2020-01-23 05:50] LABS: BASOPHILS % (AUTO) 1 % (0-1); EOSINOPHILS % (AUTO) 4 % (1-7); LYMPHOCYTES % (AUTO) 8 % (22-44); MEAN CORPUSCULAR HGB CONC 31.6 g/dL (33.2-36.2); MEAN PLATELET VOLUME 8.4 fL (7.4-10.4); MONOCYTES % (AUTO) 10 % (2-9); NEUTROPHILS % (AUTO) 76 % (42-75); PLATELET COUNT 280 x10^3/uL (130-400); RED BLOOD COUNT 3.84 x10^6/uL (4.38-5.82); RED CELL DISTRIBUTION WIDTH 15.8 % (9.4-14.8)
[2020-01-23 05:57] LABS: ANION GAP 7 mmol/L (5-15); CALCIUM 9.6 mg/dL (8.5-10.1); CHLORIDE 108 mmol/L (98-107); CREATININE 1.62 mg/dL (0.7-1.3)
[2020-01-23] MEDS: METOPROLOL SUCCINATE 25 MG TAB.ER.24H PO SCH (06:00)
[2020-01-23 06:05] LABS: MD NO
[2020-01-23] MEDS: ALBUTEROL HFA 90 MCG/SPRAY INH SCH ×4 (07:00→19:16)
[2020-01-23 09:14] VITALS: BP 111/66
[2020-01-23] MEDS: SENNA/DOCUSATE TABLET PO SCH (09:22)
[2020-01-23] MEDS: POTASSIUM CHLORIDE 10% 40 MEQ/30 ML UDC PO SCH ×2 (09:22→21:04)
[2020-01-23] MEDS: LACTOBACILLUS CHEW TABLET PO SCH ×3 (09:22→21:04)
[2020-01-23] MEDS: TORSEMIDE 20 MG TABLET PO SCH (09:22)
[2020-01-23 12:31] VITALS: BP 150/74
[2020-01-23] MEDS ORDERED: GOLYTELY 4,000ML ORAL.SOL PO ONE (15:00)
[2020-01-23 18:41] VITALS: BP 144/73
[2020-01-23] MEDS: EZETIMIBE 10 MG TABLET PO SCH (21:04)
[2020-01-24] MEDS: DAPTOMYCIN 900 MG in SODIUM CHLORIDE 0.9% 100 ML IV SCH (00:44)
[2020-01-24 01:03] VITALS: BP 133/75
[2020-01-24] MEDS: D5%-0.45% NACL 1,000 ML IV SCH ×2 (01:57→15:21)
[2020-01-24 05:14] VITALS: BP 133/72
[2020-01-24] MEDS: METOPROLOL SUCCINATE 25 MG TAB.ER.24H PO SCH (05:16)
[2020-01-24 05:46] LABS: BASOPHILS % (AUTO) 1 % (0-1); EOSINOPHILS % (AUTO) 5 % (1-7); LYMPHOCYTES % (AUTO) 11 % (22-44); MEAN CORPUSCULAR HEMOGLOBIN 28.6 pg (27.5-34.5); MEAN CORPUSCULAR HGB CONC 32.7 g/dL (33.2-36.2); MEAN PLATELET VOLUME 8.4 fL (7.4-10.4); MONOCYTES % (AUTO) 13 % (2-9); NEUTROPHILS % (AUTO) 71 % (42-75); PLATELET COUNT 237 x10^3/uL (130-400); RED BLOOD COUNT 3.57 x10^6/uL (4.38-5.82); RED CELL DISTRIBUTION WIDTH 15.8 % (9.4-14.8)
[2020-01-24 05:53] LABS: MD NO
[2020-01-24 05:56] LABS: ANION GAP 8 mmol/L (5-15); CALCIUM 8.9 mg/dL (8.5-10.1); CHLORIDE 104 mmol/L (98-107)
[2020-01-24 06:01] LABS: ALANINE AMINOTRANSFERASE 17 U/L (12-78); ALKALINE PHOSPHATASE 96 U/L (45-117); BILIRUBIN,TOTAL 0.7 mg/dL (0.2-1.0); CREATININE 1.52 mg/dL (0.7-1.3); TOTAL PROTEIN 7.1 g/dL (6.4-8.2)
[2020-01-24] MEDS: ALBUTEROL HFA 90 MCG/SPRAY INH SCH ×3 (06:16→14:57)
[2020-01-24] MEDS ORDERED: FERROUS SULFATE 325 MG TABLET PO SCH (08:00)
[2020-01-24] MEDS: SENNA/DOCUSATE TABLET PO SCH (08:46)
[2020-01-24] MEDS: TORSEMIDE 20 MG TABLET PO SCH (08:49)
[2020-01-24] MEDS: POTASSIUM CHLORIDE 10% 40 MEQ/30 ML UDC PO SCH (08:49)
[2020-01-24] MEDS: LACTOBACILLUS CHEW TABLET PO SCH ×2 (08:49→16:33)
[2020-01-24 09:30] VITALS: BP 126/65
[2020-01-24] MEDS ORDERED: LABETALOL 5MG/ML, 20ML IV PRN (09:30)
[2020-01-24] MEDS ORDERED: DIPHENHYDRAMINE 50 MG/ML, 1ML IVPush PRN (09:30)
[2020-01-24] MEDS ORDERED: OXYcodone 5 MG/5 ML ORAL.SOL UDC PO PRN (09:30)
[2020-01-24] MEDS ORDERED: DIAZEPAM 5 MG/ML, 2ML IVPush PRN (09:30)
[2020-01-24] MEDS ORDERED: FENTANYL PF 100 MCG/2ML IV PRN (09:30)
[2020-01-24] MEDS ORDERED: ONDANSETRON 2MG/ML, 2ML IVPush PRN (09:30)
[2020-01-24] MEDS ORDERED: ACETAMINOPHEN 325 MG TABLET PO PRN (09:30)
[2020-01-24] MEDS ORDERED: EPHEDRINE 50 MG/ML, 1ML IVPush PRN (09:30)
[2020-01-24] MEDS ORDERED: EPHEDRINE 50 MG/ML, 1ML IM PRN (09:30)
[2020-01-24] MEDS ORDERED: MEPERIDINE/PF 25MG/0.5ML IVPush PRN (09:30)
[2020-01-24] MEDS ORDERED: HYDROcodone/APAP 7.5-325MG/15ML UDC PO PRN (09:30)
[2020-01-24] MEDS ORDERED: HALOPERIDOL 5 MG/ML IV PRN (09:30)
[2020-01-24] MEDS ORDERED: MIDAZOLAM 1 MG/ML, 2ML IV PRN (09:30)
[2020-01-24] MEDS ORDERED: METHOCARBAMOL 1,000 MG in DEXTROSE 5% 100 ML IV PRN (09:30)
[2020-01-24] MEDS ORDERED: METOCLOPRAMIDE 5 MG/ML, 2ML IVPush PRN (09:30)
[2020-01-24] MEDS ORDERED: ALBUTEROL/IPRATROPIUM 2.5MG/0.5MG, 3 ML NPPB PRN (09:30)
[2020-01-24] MEDS ORDERED: hydrALAzine 20 MG/ML, 1ML IV PRN (09:30)
[2020-01-24] MEDS ORDERED: HYDROmorphone 1 MG/ML, 1ML INJ IVPush PRN (09:30)
[2020-01-24] MEDS ORDERED: LORazepam 2 MG/ML, 1ML IVPush PRN (09:30)
[2020-01-24] MEDS ORDERED: CHLORHEXIDINE 15 ML UDC MM ONE (10:00)
[2020-01-24] MEDS ORDERED: KETOROLAC 30 MG/1 ML IV PRN (12:00)
[2020-01-24 14:56] VITALS: BP 114/68
[2020-01-24] MEDS ORDERED: FERR-51 PO (16:07)
[2020-01-24] MEDS ORDERED: POLY17PO5 PO (16:07)
[2020-01-24] MEDS ORDERED: DAPT500V6 IV (16:07)
[2020-01-24] MEDS ORDERED: METO25TA91 PO (16:07)
[2020-01-24] MEDS ORDERED: TORS20TA2 PO (16:07)
== END 2020-01-24 18:15 | disposition home or self-care (01) | DRG 291 ==
LOC: ED 16:20 → EDIP 16:21 → 5SO 17:50
PROVIDERS: ADMIT Hospitalist; ATTEND Family Medicine
PROC: 5A09357 Assistance with Respiratory Ventilation, Less than 24 Consecutive Hours, Continuous Positive Airway Pressure (ICD-10-PCS; principal; 2020-01-16)
PROC: 5A09357 Assistance with Respiratory Ventilation, Less than 24 Consecutive Hours, Continuous Positive Airway Pressure (ICD-10-PCS; 2020-01-19)
PROC: 0DBC8ZX Excision of Ileocecal Valve, Via Natural or Artificial Opening Endoscopic, Diagnostic (ICD-10-PCS; 2020-01-24)
PROC: 0DBE8ZX Excision of Large Intestine, Via Natural or Artificial Opening Endoscopic, Diagnostic (ICD-10-PCS; 2020-01-24)
DX: I13.0 Hypertensive heart and chronic kidney disease with heart failure and stage 1 through stage 4 chronic kidney disease, or unspecified chronic kidney disease (principal); I50.33 Acute on chronic diastolic (congestive) heart failure; J96.21 Acute and chronic respiratory failure with hypoxia; I38 Endocarditis, valve unspecified; J44.0 Chronic obstructive pulmonary disease with (acute) lower respiratory infection; N17.9 Acute kidney failure, unspecified; D50.9 Iron deficiency anemia, unspecified; E66.01 Morbid (severe) obesity due to excess calories; E11.22 Type 2 diabetes mellitus with diabetic chronic kidney disease; E78.5 Hyperlipidemia, unspecified; G47.33 Obstructive sleep apnea (adult) (pediatric); I25.10 Atherosclerotic heart disease of native coronary artery without angina pectoris; I27.20 Pulmonary hypertension, unspecified; I35.0 Nonrheumatic aortic (valve) stenosis; I83.009 Varicose veins of unspecified lower extremity with ulcer of unspecified site; Z20.828 Contact with and (suspected) exposure to other viral communicable diseases; K59.00 Constipation, unspecified; N18.30 Chronic kidney disease, stage 3 unspecified; Z79.4 Long term (current) use of insulin; Z68.39 Body mass index [BMI] 39.0-39.9, adult; I25.2 Old myocardial infarction; Z86.718 Personal history of other venous thrombosis and embolism; Z87.01 Personal history of pneumonia (recurrent); Z95.1 Presence of aortocoronary bypass graft; Z95.5 Presence of coronary angioplasty implant and graft; Z99.81 Dependence on supplemental oxygen; Z79.899 Other long term (current) drug therapy; Z90.49 Acquired absence of other specified parts of digestive tract
CPT/HCPCS: 36415; 71045; 74018; 74176; 80048; 80053; 81001; 81003; 82378; 82436; 82550; 82728; 82962; 83036; 83540; 83550; 83605; 83735; 83880; 84133; 84145; 84300; 84484; 85025; 85610; 85651; 86140; 87040; 87635; 88305; 93005; 94640; 96365; 96375; 99285; G0378; J0456; J0696; J0878; J1940; J2405; P9047; 29580-50; J7040; J7050

== ENCOUNTER → 2020-01-15 | Outpatient (CLI) | payer OTHER | END | disposition home or self-care (01) | LOC: RAD 10:24 | PROVIDERS: ATTEND Internal Medicine Infectious Disease | DX: L03.90 Cellulitis, unspecified (principal); I50.9 Heart failure, unspecified; R06.02 Shortness of breath; Z95.4 Presence of other heart-valve replacement | CPT/HCPCS: 71046 ==

== ENCOUNTER 2020-01-28 08:55 | Outpatient (CLI) | payer OTHER ==
[~2020-01-28 08:55] MED LIST changes: +ACETAMINOPHEN 325 MG TABLET PO PRN; +ALBU0.63 NEB; +ALBUTEROL/IPRATROPIUM 2.5MG/0.5MG, 3 ML NPPB PRN; +BUME2TAB3 PO; +DAPT500V6 IV; +DIAZEPAM 5 MG/ML, 2ML IVPush PRN; +DIPHENHYDRAMINE 50 MG/ML, 1ML IVPush PRN; +EPHEDRINE 50 MG/ML, 1ML IM PRN; +EPHEDRINE 50 MG/ML, 1ML IVPush PRN; +FENTANYL PF 100 MCG/2ML IV PRN; +FERR-51 PO; +FLUT1BLS3 IH; +HALOPERIDOL 5 MG/ML IV PRN; +HYDR-3341 PO; +HYDROcodone/APAP 7.5-325MG/15ML UDC PO PRN; +HYDROmorphone 1 MG/ML, 1ML INJ IVPush PRN; +KETOROLAC 30 MG/1 ML IV PRN; +LABETALOL 5MG/ML, 20ML IV PRN; +LORazepam 2 MG/ML, 1ML IVPush PRN; +MEPERIDINE/PF 25MG/0.5ML IVPush PRN; +METHOCARBAMOL 1,000 MG in DEXTROSE 5% 100 ML IV PRN; +METO25TA91 PO; +METOCLOPRAMIDE 5 MG/ML, 2ML IVPush PRN; +MIDAZOLAM 1 MG/ML, 2ML IV PRN; +ONDANSETRON 2MG/ML, 2ML IVPush PRN; +OXYcodone 5 MG/5 ML ORAL.SOL UDC PO PRN; +POLY17PO5 PO; +TORS20TA2 PO; +hydrALAzine 20 MG/ML, 1ML IV PRN
== END 2020-01-28 23:59 | disposition home or self-care (01) ==
LOC: WOUND 08:55
PROVIDERS: ATTEND Internal Medicine
DX: I83.018 Varicose veins of right lower extremity with ulcer other part of lower leg (principal); E11.622 Type 2 diabetes mellitus with other skin ulcer; I70.238 Atherosclerosis of native arteries of right leg with ulceration of other part of lower leg; L97.812 Non-pressure chronic ulcer of other part of right lower leg with fat layer exposed; I83.012 Varicose veins of right lower extremity with ulcer of calf; I70.232 Atherosclerosis of native arteries of right leg with ulceration of calf; L97.212 Non-pressure chronic ulcer of right calf with fat layer exposed; I89.0 Lymphedema, not elsewhere classified; L03.115 Cellulitis of right lower limb; L03.116 Cellulitis of left lower limb; I87.2 Venous insufficiency (chronic) (peripheral); I25.119 Atherosclerotic heart disease of native coronary artery with unspecified angina pectoris; E78.5 Hyperlipidemia, unspecified; J44.9 Chronic obstructive pulmonary disease, unspecified; E11.22 Type 2 diabetes mellitus with diabetic chronic kidney disease; I13.0 Hypertensive heart and chronic kidney disease with heart failure and stage 1 through stage 4 chronic kidney disease, or unspecified chronic kidney disease; I50.33 Acute on chronic diastolic (congestive) heart failure; N18.30 Chronic kidney disease, stage 3 unspecified; I25.2 Old myocardial infarction; E66.01 Morbid (severe) obesity due to excess calories; G47.33 Obstructive sleep apnea (adult) (pediatric); Z68.39 Body mass index [BMI] 39.0-39.9, adult; Z86.718 Personal history of other venous thrombosis and embolism; Z86.711 Personal history of pulmonary embolism; Z99.81 Dependence on supplemental oxygen; Z95.1 Presence of aortocoronary bypass graft; Z87.891 Personal history of nicotine dependence; Z79.01 Long term (current) use of anticoagulants; Z79.4 Long term (current) use of insulin; Z95.2 Presence of prosthetic heart valve; Z90.49 Acquired absence of other specified parts of digestive tract; Z79.899 Other long term (current) drug therapy
CPT/HCPCS: 29581; 97597

== ENCOUNTER 2020-02-04 23:01 | Inpatient (IN) | payer OTHER ==
[~2020-02-04] VITALS: Ht 180.3 cm; Wt 128.5 kg
[~2020-02-04 23:01] MED LIST changes: -ERGO500018 PO
[2020-02-04] MEDS ORDERED: SODIUM CHLORIDE 0.9% 1,000ML IVBOLUS ONE (23:30)
[2020-02-04] MEDS ORDERED: ACETAMINOPHEN 500 MG TABLET PO ONE (23:30)
[2020-02-04] MEDS ORDERED: ACETAMINOPHEN 500 MG TABLET ONE (23:31)
--- NOTE | 2020-02-04 23:37 | NUR ---
PT. TO ED WITH C/O FEVERS AT NIGHT X LAST FEW DAYS. FEVERS RESOLVE DURING THE DAY PER . PT. ALSO C/O INCREASING SOB; WEARS 5L O2 VIA [facility] 01/11 AND PER HOME PULSE OX HANGING AROUND 90% WITH THIS. EKG DONE AND PRESENTED TO ERMD. CONTINUOUS PULSE OX, B/P, AND CARDIAC MONITORS PLACED. PT. HAS PICC IN LEFT ARM AND RECEIVES DOXYCYCLINE INFUSIONS. TAVR IN MAY WITH COMPLICATIONS.
--- NOTE | 2020-02-04 23:50 | NUR ---
LAB AT FOR BLOOD DRAW. CHEST X-RAY IN PROGRESS NOW. PER KATE SUMNER OK TO USE PICC LINE.
[2020-02-04 23:59] LABS: BASOPHILS % (AUTO) 1 % (0-1); EOSINOPHILS % (AUTO) 4 % (1-7); LYMPHOCYTES % (AUTO) 5 % (22-44); MEAN CORPUSCULAR HEMOGLOBIN 28.2 pg (27.5-34.5); MEAN CORPUSCULAR HGB CONC 32.3 g/dL (33.2-36.2); MEAN PLATELET VOLUME 8.3 fL (7.4-10.4); MONOCYTES % (AUTO) 9 % (2-9); NEUTROPHILS % (AUTO) 80 % (42-75); PLATELET COUNT 303 x10^3/uL (130-400); RED BLOOD COUNT 3.47 x10^6/uL (4.38-5.82); RED CELL DISTRIBUTION WIDTH 15.5 % (9.4-14.8)
[2020-02-05 00:10] LABS: ALANINE AMINOTRANSFERASE 37 U/L (12-78); ALBUMIN 2.7 g/dL (3.4-5.0); ANION GAP 7 mmol/L (5-15); CHLORIDE 104 mmol/L (98-107); CREATININE 1.74 mg/dL (0.7-1.3); MD NO
[2020-02-05 00:15] LABS: ALKALINE PHOSPHATASE 157 U/L (45-117); BILIRUBIN,TOTAL 0.7 mg/dL (0.2-1.0); TOTAL PROTEIN 7.2 g/dL (6.4-8.2); TROPONIN I < 0.015 ng/mL (0.000-0.045)
[2020-02-05] MEDS ORDERED: ERGO500018 PO (00:17)
--- NOTE | 2020-02-05 00:23 | NUR ---
DR. DELCID IN TO [facility].
[2020-02-05] MEDS ORDERED: AZITHROMYCIN 500 MG in SODIUM CHLORIDE 0.9% 250 ML IV ONE (01:00)
[2020-02-05] MEDS ORDERED: CEFTRIAXONE PMX 1GM/50ML 50 ML IV ONE (01:00)
[2020-02-05] MEDS ORDERED: CEFTRIAXONE PMX 1GM/50ML 50 ML ONE (01:10)
--- NOTE | 2020-02-05 01:23 | NUR ---
VS UPDATED. PT. TO CT VIA [facility] AT THIS TIME. IV ABX INITIATED; 2 SETS OF BLOOD CULTURES WERE COMPLETED PRIOR.
[2020-02-05] MEDS ORDERED: OMNIPAQUE 350 MG/ML, 75ML BOTTLE ONE (01:45)
--- NOTE | 2020-02-05 02:51 | NUR ---
PT. HAS BEEN SITTING UP ON [place]GE OF [place] OR IN CHAIR [place] THROUGHOUT THIS VISIT. KATE SUMNER WAS IN TO DISCUSS PLAN FOR ADMISSION WITH PT. AND . PT. STATES HE USUALLY USES A CARDIAC CHAIR WHEN HE IS ADMITTED FOR SLEEPING AT NIGHT. CARDIAC CHAIR REQUESTED FROM [employer]. PT. PROVIDED WITH SANDWICH FROM [employer] AFTER OK FROM KATE SUMNER. PT. DENIES OTHER NEEDS AT THIS TIME.
--- NOTE | 2020-02-05 03:45 | NUR ---
PT. WAS ABLE TO EAT HALF OF SANDWICH PROVIDED. CARDIAC CHAIR PROVIDED TO PT.; ASSISTED WITH TRANSFER TO CHAIR. ALL BELONINGS, URINAL, AND CALL LIGHT IN REACH. PT. DENIES OTHER NEEDS AT THIS TIME. SAFETY MEASURES MAINTAINED.
[2020-02-05] MEDS ORDERED: SODIUM CHLORIDE 0.9% 1,000ML IVBOLUS ONE (05:00)
--- NOTE | 2020-02-05 05:00 | NUR ---
LATE ENTRY: BS REPORT TO CYNDI SHANKAR TO ASSUME CARE. HUMIDIFIER PLACED ON O2 FOR PT. COMFORT. B/P IMPROVED; PER DR. DELCID HOLD 250ML BOLUS UNLESS MAP DROPS BELOW 65; ENDORSED TO CYNDI SHANKAR.
--- NOTE | 2020-02-05 07:03 | NUR ---
REPORT FROM VONNIE HANNA.
--- NOTE | 2020-02-05 07:09 | NUR ---
REPORT TO RUSSELL HANNA.
[2020-02-05] MEDS ORDERED: POLYETHYLENE GLYCOL 17 GM PACKET PO PRN (07:30)
[2020-02-05] MEDS ORDERED: morphine SULFATE 10 MG/ML, 1ML IVPush PRN (07:30)
[2020-02-05] MEDS ORDERED: HYDROcodone/APAP 5/325 TABLET PO PRN (07:30)
[2020-02-05] MEDS ORDERED: HEPARIN 5,000 UNITS/ML, 1ML SQ SCH (07:30)
[2020-02-05] MEDS ORDERED: METHOCARBAMOL 500 MG TABLET PO PRN (07:30)
[2020-02-05] MEDS ORDERED: FUROSEMIDE 40 MG/4 ML IV SCH ×2 (07:30→17:00)
[2020-02-05] MEDS ORDERED: LABETALOL 5MG/ML, 20ML IVPush PRN (07:30)
[2020-02-05] MEDS ORDERED: ONDANSETRON ODT 4 MG PO PRN (07:30)
[2020-02-05 08:00] VITALS: BP 128/62
[2020-02-05] MEDS ORDERED: DAPTOMYCIN 500 MG IV SCH (09:00)
[2020-02-05] MEDS: METOPROLOL SUCCINATE 25 MG TAB.ER.24H PO SCH (09:00)
[2020-02-05] MEDS ORDERED: TORSEMIDE 20 MG TABLET PO SCH (09:00)
[2020-02-05] MEDS ORDERED: TICAGRELOR 90 MG TABLET PO SCH (09:00)
[2020-02-05] MEDS ORDERED: FUROSEMIDE 40 MG/4 ML ONE (10:16)
[2020-02-05] MEDS ORDERED: HEPARIN 5,000 UNITS/ML, 1ML ONE (10:16)
[2020-02-05] MEDS ORDERED: HYDROcodone/APAP 5/325 TABLET ONE (10:37)
[2020-02-05] MEDS: INSULIN REGULAR 100 UNITS/ML, 3ML VIAL SQ-INSULIN SCH ×3 (11:00→21:00)
[2020-02-05] MEDS ORDERED: DULAGLUTIDE SC SCH (13:00)
[2020-02-05 14:02] VITALS: BP 136/72
[2020-02-05] MEDS ORDERED: PNEUMOC 13-VALENT VACC, 0.5 ML IM-VACC ONE ×2 (15:30→20:30)
[2020-02-05] MEDS ORDERED: ALBUTEROL HFA 90 MCG/SPRAY INH PRN (16:00)
[2020-02-05] MEDS ORDERED: FUROSEMIDE 20 MG/2 ML ONE (16:06)
[2020-02-05 16:58] LABS: RAPID INFLUENZA A Negative (Negative); RAPID INFLUENZA B Negative (Negative)
[2020-02-05] MEDS ORDERED: LACTATED RINGERS 1,000 ML IV SCH (17:00)
[2020-02-05] MEDS: FUROSEMIDE 40 MG/4 ML IV SCH (17:00)
[2020-02-05] MEDS: DABIGATRAN 150 MG CAPSULE PO SCH ×2 (21:00→23:52)
[2020-02-05] MEDS ORDERED: DABIGATRAN 150 MG CAPSULE PO SCH (21:00)
--- NOTE | 2020-02-05 21:07 | NUR ---
PT EATING DINNER CURRENTLY. RN ASKED IF BS WAS CHECKED PRIOR. PT WEARING A METER. PT STATED BS WAS 69 PRIOR TO EATING. RN WILL HOLD INSULIN SLIDING SCALE FOR NIGHT DOSE.
--- NOTE | 2020-02-05 22:40 | NUR ---
Report given to CYNDI Bush. Floor RN informed that night medications were not able to be passed due to unavailability of medications.
[2020-02-05] MEDS ORDERED: EZETIMIBE 10 MG TABLET ONE (22:53)
[2020-02-05] MEDS ORDERED: DABIGATRAN 150 MG CAPSULE ONE (22:53)
[2020-02-05] MEDS ORDERED: TICAGRELOR 90 MG TABLET ONE (22:53)
[2020-02-05 23:21] VITALS: BP 117/51
[2020-02-05] MEDS: EZETIMIBE 10 MG TABLET PO SCH (23:50)
[2020-02-05] MEDS: TICAGRELOR 90 MG TABLET PO SCH (23:52)
[2020-02-05] MEDS: TEMPLATE NON-FORMULARY MED. (Brinzolamide/Brimonid Tart (Simbrinza 1%-0.2% Eye Drops) 1 DR LEFTEYE SCH (23:52)
[2020-02-06 00:45] VITALS: BP 149/72
[2020-02-06] MEDS: CEFTRIAXONE PMX 1GM/50ML 50 ML IV SCH (00:50)
[2020-02-06] MEDS: AZITHROMYCIN 500 MG TABLET PO SCH (00:54)
[2020-02-06 05:15] VITALS: BP 150/69
[2020-02-06] MEDS: METOPROLOL SUCCINATE 25 MG TAB.ER.24H PO SCH (05:17)
[2020-02-06 06:29] LABS: BASOPHILS % (AUTO) 0 % (0-1); EOSINOPHILS % (AUTO) 7 % (1-7); LYMPHOCYTES % (AUTO) 5 % (22-44); MEAN CORPUSCULAR HEMOGLOBIN 28.2 pg (27.5-34.5); MEAN CORPUSCULAR HGB CONC 32.4 g/dL (33.2-36.2); MEAN PLATELET VOLUME 8.5 fL (7.4-10.4); MONOCYTES % (AUTO) 10 % (2-9); NEUTROPHILS % (AUTO) 77 % (42-75); PLATELET COUNT 289 x10^3/uL (130-400); RED CELL DISTRIBUTION WIDTH 15.7 % (9.4-14.8)
[2020-02-06 06:36] LABS: CHLORIDE 103 mmol/L (98-107)
[2020-02-06 06:40] LABS: ANION GAP 8 mmol/L (5-15); CALCIUM 8.6 mg/dL (8.5-10.1); CREATININE 2.11 mg/dL (0.7-1.3)
[2020-02-06 06:58] VITALS: BP 122/64
[2020-02-06] MEDS: INSULIN REGULAR 100 UNITS/ML, 3ML VIAL SQ-INSULIN SCH ×4 (07:00→20:34)
[2020-02-06 07:54] LABS: MD SCAN
[2020-02-06] MEDS: ATORVASTATIN 80 MG TABLET PO SCH (08:30)
[2020-02-06] MEDS: DABIGATRAN 150 MG CAPSULE PO SCH ×2 (08:30→20:21)
[2020-02-06] MEDS: FUROSEMIDE 40 MG/4 ML IV SCH (08:30)
[2020-02-06] MEDS: TEMPLATE NON-FORMULARY MED. (Brinzolamide/Brimonid Tart (Simbrinza 1%-0.2% Eye Drops) 1 DR LEFTEYE SCH ×2 (08:32→20:33)
[2020-02-06] MEDS: TICAGRELOR 90 MG TABLET PO SCH ×2 (08:32→20:21)
[2020-02-06] MEDS: TIOTROPIUM BROMIDE 18 MCG/INH INH SCH (09:00)
[2020-02-06] MEDS ORDERED: CHOLECALCIFEROL 5,000u TAB PO SCH (09:00)
[2020-02-06] MEDS: FLUTICASONE/VILANTEROL 200-25MCG/INH INH SCH (09:00)
[2020-02-06] MEDS ORDERED: FLUTICASONE/VILANTEROL 100-25MCG/INH INH SCH (09:00)
[2020-02-06 13:06] VITALS: BP 114/77
[2020-02-06 19:15] VITALS: BP 140/78
[2020-02-06] MEDS: EZETIMIBE 10 MG TABLET PO SCH (20:21)
[2020-02-06] MEDS: DOCUSATE 100 MG CAPSULE PO PRN (20:21)
[2020-02-06] MEDS: TEMAZEPAM 15 MG CAPSULE PO PRN (20:22)
[2020-02-07] MEDS: AZITHROMYCIN 500 MG TABLET PO SCH (00:49)
[2020-02-07] MEDS: CEFTRIAXONE PMX 1GM/50ML 50 ML IV SCH (00:49)
[2020-02-07 00:53] VITALS: BP 157/69
[2020-02-07] MEDS: ACETAMINOPHEN 325 MG TABLET PO PRN ×2 (02:23→21:03)
[2020-02-07 02:30] LABS: BASOPHILS % (AUTO) 0 % (0-1); EOSINOPHILS % (AUTO) 7 % (1-7); LYMPHOCYTES % (AUTO) 5 % (22-44); MEAN CORPUSCULAR HEMOGLOBIN 27.8 pg (27.5-34.5); MEAN CORPUSCULAR HGB CONC 32.2 g/dL (33.2-36.2); MEAN PLATELET VOLUME 8.1 fL (7.4-10.4); MONOCYTES % (AUTO) 8 % (2-9); NEUTROPHILS % (AUTO) 79 % (42-75); PLATELET COUNT 289 x10^3/uL (130-400); RED BLOOD COUNT 3.11 x10^6/uL (4.38-5.82); RED CELL DISTRIBUTION WIDTH 15.5 % (9.4-14.8)
[2020-02-07 02:32] LABS: MD NO
[2020-02-07 02:43] LABS: % IRON SATURATION 14 % (20-55); ANION GAP 3 mmol/L (5-15); CALCIUM 8.4 mg/dL (8.5-10.1); CHLORIDE 105 mmol/L (98-107); CREATININE 2.02 mg/dL (0.7-1.3); IRON LEVEL 21 mcg/dL (65-175); TOTAL IRON BINDING CAPACITY 147 mcg/dL (250-450)
[2020-02-07 06:27] VITALS: BP 117/69
[2020-02-07] MEDS: METOPROLOL SUCCINATE 25 MG TAB.ER.24H PO SCH (06:32)
[2020-02-07 07:10] LABS: CHLORIDE,URINE RANDOM 20 mmol/L; POTASSIUM,URINE RANDOM 44 mmol/L; SODIUM,URINE RANDOM 28 mmol/L
[2020-02-07] MEDS: INSULIN REGULAR 100 UNITS/ML, 3ML VIAL SQ-INSULIN SCH ×4 (08:41→21:07)
[2020-02-07] MEDS: FLUTICASONE/VILANTEROL 200-25MCG/INH INH SCH (08:48)
[2020-02-07] MEDS: TIOTROPIUM BROMIDE 18 MCG/INH INH SCH (08:49)
[2020-02-07] MEDS: CHOLECALCIFEROL 1,000 UNIT TABLET PO SCH (08:55)
[2020-02-07] MEDS: TICAGRELOR 90 MG TABLET PO SCH ×2 (08:55→21:03)
[2020-02-07] MEDS: DABIGATRAN 150 MG CAPSULE PO SCH ×2 (08:55→21:03)
[2020-02-07] MEDS: FERROUS SULFATE 325 MG TABLET PO SCH (08:55)
[2020-02-07] MEDS: TEMPLATE NON-FORMULARY MED. (Brinzolamide/Brimonid Tart (Simbrinza 1%-0.2% Eye Drops) 1 DR LEFTEYE SCH ×2 (08:57→21:07)
[2020-02-07 12:08] VITALS: BP 134/72
[2020-02-07 18:45] VITALS: BP 143/79
[2020-02-07] MEDS: EZETIMIBE 10 MG TABLET PO SCH (21:03)
[2020-02-07] MEDS: GUAIFENESIN/DM 200-20MG, 10ML UDC PO PRN (21:03)
[2020-02-07] MEDS: TEMAZEPAM 15 MG CAPSULE PO PRN (21:03)
[2020-02-07] MEDS: ATORVASTATIN 80 MG TABLET PO SCH (21:07)
[2020-02-08] MEDS: AZITHROMYCIN 500 MG TABLET PO SCH (01:19)
[2020-02-08] MEDS: CEFTRIAXONE PMX 1GM/50ML 50 ML IV SCH (01:19)
[2020-02-08 01:20] VITALS: BP 117/70
[2020-02-08] MEDS: METOPROLOL SUCCINATE 25 MG TAB.ER.24H PO SCH (05:16)
[2020-02-08] MEDS: ACETAMINOPHEN 325 MG TABLET PO PRN (05:18)
[2020-02-08] MEDS: GUAIFENESIN/DM 200-20MG, 10ML UDC PO PRN (05:18)
[2020-02-08 05:49] LABS: ANION GAP 4 mmol/L (5-15); CALCIUM 8.5 mg/dL (8.5-10.1); CHLORIDE 107 mmol/L (98-107)
[2020-02-08 05:50] LABS: BASOPHILS % (AUTO) 1 % (0-1); CREATININE 1.64 mg/dL (0.7-1.3); EOSINOPHILS % (AUTO) 9 % (1-7); LYMPHOCYTES % (AUTO) 6 % (22-44); MEAN CORPUSCULAR HEMOGLOBIN 27.9 pg (27.5-34.5); MEAN CORPUSCULAR HGB CONC 32.3 g/dL (33.2-36.2); MONOCYTES % (AUTO) 8 % (2-9); NEUTROPHILS % (AUTO) 76 % (42-75); PLATELET COUNT 318 x10^3/uL (130-400); RED BLOOD COUNT 3.13 x10^6/uL (4.38-5.82); RED CELL DISTRIBUTION WIDTH 15.6 % (9.4-14.8)
[2020-02-08 06:08] LABS: MD NO
[2020-02-08 06:49] VITALS: BP 153/74
[2020-02-08] MEDS: INSULIN REGULAR 100 UNITS/ML, 3ML VIAL SQ-INSULIN SCH ×4 (07:56→21:04)
[2020-02-08] MEDS: TEMPLATE NON-FORMULARY MED. (Brinzolamide/Brimonid Tart (Simbrinza 1%-0.2% Eye Drops) 1 DR LEFTEYE SCH ×2 (09:00→21:08)
[2020-02-08] MEDS: DABIGATRAN 150 MG CAPSULE PO SCH ×2 (09:12→21:03)
[2020-02-08] MEDS: CHOLECALCIFEROL 1,000 UNIT TABLET PO SCH (09:12)
[2020-02-08] MEDS: ATORVASTATIN 80 MG TABLET PO SCH (09:12)
[2020-02-08] MEDS: TICAGRELOR 90 MG TABLET PO SCH ×2 (09:18→21:03)
[2020-02-08 09:43] LABS: HCT (SEDRATE) 27.1 % (39.2-51.8)
[2020-02-08] MEDS: FLUTICASONE/VILANTEROL 200-25MCG/INH INH SCH (09:51)
[2020-02-08] MEDS: TIOTROPIUM BROMIDE 18 MCG/INH INH SCH (09:51)
[2020-02-08 15:23] VITALS: BP 153/77
[2020-02-08 19:05] VITALS: BP 137/75
[2020-02-08] MEDS: DOCUSATE 100 MG CAPSULE PO PRN (21:03)
[2020-02-08] MEDS: EZETIMIBE 10 MG TABLET PO SCH (21:03)
[2020-02-08] MEDS: TEMAZEPAM 15 MG CAPSULE PO PRN (21:03)
[2020-02-09] MEDS: AZITHROMYCIN 500 MG TABLET PO SCH (00:55)
[2020-02-09] MEDS: CEFTRIAXONE PMX 1GM/50ML 50 ML IV SCH (00:56)
[2020-02-09 01:26] LABS: MICROSCOPIC AUTO
[2020-02-09 01:33] VITALS: BP 142/81
[2020-02-09] MEDS: METOPROLOL SUCCINATE 25 MG TAB.ER.24H PO SCH (06:23)
[2020-02-09 06:25] VITALS: BP 133/61
[2020-02-09] MEDS: INSULIN REGULAR 100 UNITS/ML, 3ML VIAL SQ-INSULIN SCH ×4 (07:18→20:34)
[2020-02-09] MEDS: DABIGATRAN 150 MG CAPSULE PO SCH ×2 (08:01→20:33)
[2020-02-09] MEDS: CHOLECALCIFEROL 1,000 UNIT TABLET PO SCH (08:02)
[2020-02-09] MEDS: ATORVASTATIN 80 MG TABLET PO SCH (08:02)
[2020-02-09] MEDS: FERROUS SULFATE 325 MG TABLET PO SCH (08:02)
[2020-02-09] MEDS: TICAGRELOR 90 MG TABLET PO SCH ×2 (08:02→20:33)
[2020-02-09] MEDS: TEMPLATE NON-FORMULARY MED. (Brinzolamide/Brimonid Tart (Simbrinza 1%-0.2% Eye Drops) 1 DR LEFTEYE SCH ×2 (08:10→20:33)
[2020-02-09 08:16] LABS: ANION GAP 3 mmol/L (5-15); CALCIUM 8.5 mg/dL (8.5-10.1); CHLORIDE 108 mmol/L (98-107); CREATININE 1.33 mg/dL (0.7-1.3)
[2020-02-09 08:35] VITALS: BP 156/76
[2020-02-09] MEDS: FLUTICASONE/VILANTEROL 200-25MCG/INH INH SCH (09:00)
[2020-02-09] MEDS: TIOTROPIUM BROMIDE 18 MCG/INH INH SCH (09:00)
[2020-02-09 10:21] LABS: BASOPHILS % (AUTO) 1 % (0-1); EOSINOPHILS % (AUTO) 10 % (1-7); LYMPHOCYTES % (AUTO) 8 % (22-44); MEAN CORPUSCULAR HEMOGLOBIN 28.1 pg (27.5-34.5); MEAN CORPUSCULAR HGB CONC 32.1 g/dL (33.2-36.2); MONOCYTES % (AUTO) 8 % (2-9); NEUTROPHILS % (AUTO) 73 % (42-75); PLATELET COUNT 348 x10^3/uL (130-400); RED BLOOD COUNT 3.23 x10^6/uL (4.38-5.82); RED CELL DISTRIBUTION WIDTH 15.7 % (9.4-14.8)
[2020-02-09 10:23] LABS: MD NO
[2020-02-09 12:15] VITALS: BP 136/75
[2020-02-09 20:15] VITALS: BP 144/81
[2020-02-09] MEDS: EZETIMIBE 10 MG TABLET PO SCH (20:33)
[2020-02-09] MEDS: DOCUSATE 100 MG CAPSULE PO PRN (20:36)
[2020-02-10 00:28] VITALS: BP 130/74
[2020-02-10] MEDS: TEMAZEPAM 15 MG CAPSULE PO PRN ×2 (00:29→22:12)
[2020-02-10] MEDS: AZITHROMYCIN 500 MG TABLET PO SCH (00:32)
[2020-02-10] MEDS: CEFTRIAXONE PMX 1GM/50ML 50 ML IV SCH (00:32)
[2020-02-10] MEDS: METOPROLOL SUCCINATE 25 MG TAB.ER.24H PO SCH (06:18)
[2020-02-10 06:19] VITALS: BP 130/58
[2020-02-10] MEDS: INSULIN REGULAR 100 UNITS/ML, 3ML VIAL SQ-INSULIN SCH ×4 (08:04→20:20)
[2020-02-10 08:15] VITALS: BP 148/71
[2020-02-10] MEDS: CHOLECALCIFEROL 1,000 UNIT TABLET PO SCH (08:39)
[2020-02-10] MEDS: ATORVASTATIN 80 MG TABLET PO SCH (08:41)
[2020-02-10] MEDS: DABIGATRAN 150 MG CAPSULE PO SCH ×2 (08:42→20:17)
[2020-02-10] MEDS: TICAGRELOR 90 MG TABLET PO SCH ×2 (08:43→20:17)
[2020-02-10] MEDS: FLUTICASONE/VILANTEROL 200-25MCG/INH INH SCH (08:44)
[2020-02-10] MEDS: TIOTROPIUM BROMIDE 18 MCG/INH INH SCH (08:45)
[2020-02-10] MEDS: TEMPLATE NON-FORMULARY MED. (Brinzolamide/Brimonid Tart (Simbrinza 1%-0.2% Eye Drops) 1 DR LEFTEYE SCH ×2 (08:58→20:19)
[2020-02-10 10:47] LABS: ALANINE AMINOTRANSFERASE 41 U/L (12-78); ALBUMIN 2.5 g/dL (3.4-5.0); ANION GAP 6 mmol/L (5-15); CALCIUM 8.4 mg/dL (8.5-10.1); CHLORIDE 107 mmol/L (98-107); CREATININE 1.27 mg/dL (0.7-1.3)
[2020-02-10 10:53] LABS: ALKALINE PHOSPHATASE 166 U/L (45-117); BILIRUBIN,TOTAL 0.5 mg/dL (0.2-1.0); TOTAL PROTEIN 6.8 g/dL (6.4-8.2)
[2020-02-10 11:13] LABS: BASOPHILS % (AUTO) 1 % (0-1); EOSINOPHILS % (AUTO) 7 % (1-7); LYMPHOCYTES % (AUTO) 7 % (22-44); MEAN CORPUSCULAR HEMOGLOBIN 28.3 pg (27.5-34.5); MEAN CORPUSCULAR HGB CONC 32.7 g/dL (33.2-36.2); MEAN PLATELET VOLUME 8.2 fL (7.4-10.4); MONOCYTES % (AUTO) 7 % (2-9); NEUTROPHILS % (AUTO) 79 % (42-75); PLATELET COUNT 334 x10^3/uL (130-400); RED BLOOD COUNT 3.31 x10^6/uL (4.38-5.82); RED CELL DISTRIBUTION WIDTH 15.9 % (9.4-14.8)
[2020-02-10 11:16] LABS: MD NO
[2020-02-10 11:18] LABS: HCT (SEDRATE) 28.7 % (39.2-51.8)
[2020-02-10 13:30] VITALS: BP 145/75
[2020-02-10] MEDS: TORSEMIDE 20 MG TABLET PO SCH (13:54)
[2020-02-10] MEDS: EZETIMIBE 10 MG TABLET PO SCH (20:16)
[2020-02-10 20:20] VITALS: BP 121/51
[2020-02-11 00:45] VITALS: BP 127/75
[2020-02-11] MEDS: METOPROLOL SUCCINATE 25 MG TAB.ER.24H PO SCH (05:13)
[2020-02-11] MEDS: INSULIN REGULAR 100 UNITS/ML, 3ML VIAL SQ-INSULIN SCH ×4 (08:08→20:34)
[2020-02-11 08:11] VITALS: BP 177/70
[2020-02-11] MEDS: CHOLECALCIFEROL 1,000 UNIT TABLET PO SCH (08:32)
[2020-02-11] MEDS: TICAGRELOR 90 MG TABLET PO SCH ×2 (08:34→20:32)
[2020-02-11] MEDS: FERROUS SULFATE 325 MG TABLET PO SCH (08:34)
[2020-02-11] MEDS: TORSEMIDE 20 MG TABLET PO SCH (08:36)
[2020-02-11] MEDS: DABIGATRAN 150 MG CAPSULE PO SCH ×2 (08:36→20:31)
[2020-02-11] MEDS: FLUTICASONE/VILANTEROL 200-25MCG/INH INH SCH (08:38)
[2020-02-11] MEDS: TIOTROPIUM BROMIDE 18 MCG/INH INH SCH (09:49)
[2020-02-11] MEDS: TEMPLATE NON-FORMULARY MED. (Brinzolamide/Brimonid Tart (Simbrinza 1%-0.2% Eye Drops) 1 DR LEFTEYE SCH ×2 (10:11→20:32)
[2020-02-11 12:16] LABS: BASOPHILS % (AUTO) 1 % (0-1); EOSINOPHILS % (AUTO) 6 % (1-7); LYMPHOCYTES % (AUTO) 5 % (22-44); MEAN CORPUSCULAR HEMOGLOBIN 27.6 pg (27.5-34.5); MEAN CORPUSCULAR HGB CONC 31.9 g/dL (33.2-36.2); MEAN PLATELET VOLUME 7.9 fL (7.4-10.4); MONOCYTES % (AUTO) 7 % (2-9); NEUTROPHILS % (AUTO) 82 % (42-75); PLATELET COUNT 378 x10^3/uL (130-400); RED BLOOD COUNT 3.59 x10^6/uL (4.38-5.82); RED CELL DISTRIBUTION WIDTH 15.6 % (9.4-14.8)
[2020-02-11 12:23] LABS: CHLORIDE 107 mmol/L (98-107)
[2020-02-11 12:37] LABS: ALANINE AMINOTRANSFERASE 43 U/L (12-78); ALBUMIN 2.6 g/dL (3.4-5.0); ALKALINE PHOSPHATASE 167 U/L (45-117); ANION GAP 6 mmol/L (5-15); BILIRUBIN,TOTAL 0.5 mg/dL (0.2-1.0); CALCIUM 8.7 mg/dL (8.5-10.1); CREATININE 1.33 mg/dL (0.7-1.3); TOTAL PROTEIN 6.9 g/dL (6.4-8.2)
[2020-02-11 12:53] LABS: MD SCAN
[2020-02-11 16:00] VITALS: BP 124/67
[2020-02-11] MEDS: EZETIMIBE 10 MG TABLET PO SCH (20:31)
[2020-02-11] MEDS: ATORVASTATIN 80 MG TABLET PO SCH (20:31)
[2020-02-11] MEDS: TEMAZEPAM 15 MG CAPSULE PO PRN (20:32)
[2020-02-11] MEDS: DOCUSATE 100 MG CAPSULE PO PRN (20:34)
[2020-02-11 20:35] VITALS: BP 111/57
[2020-02-12 02:00] VITALS: BP 116/64
[2020-02-12 05:40] VITALS: BP 139/72
[2020-02-12] MEDS: METOPROLOL SUCCINATE 25 MG TAB.ER.24H PO SCH (05:40)
[2020-02-12 05:46] LABS: BASOPHILS % (AUTO) 1 % (0-1); EOSINOPHILS % (AUTO) 7 % (1-7); LYMPHOCYTES % (AUTO) 9 % (22-44); MEAN CORPUSCULAR HEMOGLOBIN 28.3 pg (27.5-34.5); MEAN CORPUSCULAR HGB CONC 32.7 g/dL (33.2-36.2); MEAN PLATELET VOLUME 7.5 fL (7.4-10.4); MONOCYTES % (AUTO) 10 % (2-9); NEUTROPHILS % (AUTO) 74 % (42-75); PLATELET COUNT 381 x10^3/uL (130-400); RED BLOOD COUNT 3.29 x10^6/uL (4.38-5.82); RED CELL DISTRIBUTION WIDTH 15.5 % (9.4-14.8)
[2020-02-12 05:49] LABS: MD NO
[2020-02-12 05:59] LABS: ALBUMIN 2.5 g/dL (3.4-5.0); ANION GAP 4 mmol/L (5-15); CALCIUM 8.4 mg/dL (8.5-10.1); CHLORIDE 111 mmol/L (98-107)
[2020-02-12 06:04] LABS: ALANINE AMINOTRANSFERASE 43 U/L (12-78); ALKALINE PHOSPHATASE 153 U/L (45-117); BILIRUBIN,TOTAL 0.4 mg/dL (0.2-1.0); CREATININE 1.63 mg/dL (0.7-1.3); TOTAL PROTEIN 6.6 g/dL (6.4-8.2)
[2020-02-12 06:43] VITALS: BP 154/74
[2020-02-12] MEDS: INSULIN REGULAR 100 UNITS/ML, 3ML VIAL SQ-INSULIN SCH ×4 (07:00→19:30)
[2020-02-12] MEDS: TEMPLATE NON-FORMULARY MED. (Brinzolamide/Brimonid Tart (Simbrinza 1%-0.2% Eye Drops) 1 DR LEFTEYE SCH ×2 (09:00→21:00)
[2020-02-12] MEDS: TIOTROPIUM BROMIDE 18 MCG/INH INH SCH (09:00)
[2020-02-12] MEDS: FLUTICASONE/VILANTEROL 200-25MCG/INH INH SCH (09:00)
[2020-02-12] MEDS: DABIGATRAN 150 MG CAPSULE PO SCH ×2 (09:22→21:07)
[2020-02-12] MEDS: TICAGRELOR 90 MG TABLET PO SCH ×2 (09:22→21:07)
[2020-02-12] MEDS: CHOLECALCIFEROL 1,000 UNIT TABLET PO SCH (09:23)
[2020-02-12 12:10] VITALS: BP 148/66
[2020-02-12 19:23] VITALS: BP 148/77
[2020-02-12] MEDS: ATORVASTATIN 80 MG TABLET PO SCH (21:07)
[2020-02-12] MEDS: EZETIMIBE 10 MG TABLET PO SCH (21:07)
[2020-02-12] MEDS: TEMAZEPAM 15 MG CAPSULE PO PRN (21:07)
[2020-02-13 00:59] VITALS: BP 118/72
[2020-02-13 05:58] LABS: BASOPHILS % (AUTO) 1 % (0-1); EOSINOPHILS % (AUTO) 8 % (1-7); LYMPHOCYTES % (AUTO) 8 % (22-44); MEAN CORPUSCULAR HGB CONC 32.1 g/dL (33.2-36.2); MEAN PLATELET VOLUME 7.6 fL (7.4-10.4); MONOCYTES % (AUTO) 10 % (2-9); NEUTROPHILS % (AUTO) 73 % (42-75); PLATELET COUNT 401 x10^3/uL (130-400); RED BLOOD COUNT 3.61 x10^6/uL (4.38-5.82); RED CELL DISTRIBUTION WIDTH 16.5 % (9.4-14.8)
[2020-02-13] MEDS: METOPROLOL SUCCINATE 25 MG TAB.ER.24H PO SCH (05:58)
[2020-02-13 06:07] LABS: MD NO
[2020-02-13 06:32] VITALS: BP 87/58
[2020-02-13] MEDS: INSULIN REGULAR 100 UNITS/ML, 3ML VIAL SQ-INSULIN SCH ×4 (07:00→20:29)
[2020-02-13] MEDS: TIOTROPIUM BROMIDE 18 MCG/INH INH SCH (07:47)
[2020-02-13] MEDS: FLUTICASONE/VILANTEROL 200-25MCG/INH INH SCH (07:47)
[2020-02-13] MEDS: TEMPLATE NON-FORMULARY MED. (Brinzolamide/Brimonid Tart (Simbrinza 1%-0.2% Eye Drops) 1 DR LEFTEYE SCH ×2 (09:00→20:32)
[2020-02-13] MEDS ORDERED: FUROSEMIDE 40 MG TABLET PO SCH (09:00)
[2020-02-13] MEDS: TICAGRELOR 90 MG TABLET PO SCH ×2 (09:33→20:32)
[2020-02-13] MEDS: CHOLECALCIFEROL 1,000 UNIT TABLET PO SCH (09:33)
[2020-02-13] MEDS: FERROUS SULFATE 325 MG TABLET PO SCH (09:33)
[2020-02-13] MEDS: DABIGATRAN 150 MG CAPSULE PO SCH ×2 (09:33→20:30)
[2020-02-13 11:24] LABS: ALANINE AMINOTRANSFERASE 41 U/L (12-78); ALBUMIN 2.9 g/dL (3.4-5.0); ANION GAP 3 mmol/L (5-15); CALCIUM 8.8 mg/dL (8.5-10.1); CHLORIDE 111 mmol/L (98-107); CREATININE 1.38 mg/dL (0.7-1.3)
[2020-02-13 11:27] LABS: ALKALINE PHOSPHATASE 152 U/L (45-117); BILIRUBIN,TOTAL 0.4 mg/dL (0.2-1.0); TOTAL PROTEIN 7.1 g/dL (6.4-8.2)
[2020-02-13 12:27] VITALS: BP 145/69
[2020-02-13] MEDS: ALBUMIN HUMAN 5% 250 ML IV SCH ×2 (15:54→23:51)
[2020-02-13] MEDS: FUROSEMIDE 40 MG TABLET PO SCH (17:20)
[2020-02-13 19:29] VITALS: BP 110/67
[2020-02-13] MEDS: EZETIMIBE 10 MG TABLET PO SCH (20:30)
[2020-02-13] MEDS: ATORVASTATIN 80 MG TABLET PO SCH (20:31)
[2020-02-13] MEDS: TEMAZEPAM 15 MG CAPSULE PO PRN (23:54)
[2020-02-14 01:05] VITALS: BP_SYST 105; BP_SYST 144; BP_DIAS 48; BP_DIAS 78
[2020-02-14] MEDS: FUROSEMIDE 40 MG TABLET PO SCH ×3 (01:14→17:42)
[2020-02-14 04:53] LABS: BASOPHILS % (AUTO) 1 % (0-1); EOSINOPHILS % (AUTO) 7 % (1-7); LYMPHOCYTES % (AUTO) 10 % (22-44); MEAN CORPUSCULAR HEMOGLOBIN 28.4 pg (27.5-34.5); MEAN CORPUSCULAR HGB CONC 32.6 g/dL (33.2-36.2); MEAN PLATELET VOLUME 7.7 fL (7.4-10.4); MONOCYTES % (AUTO) 9 % (2-9); NEUTROPHILS % (AUTO) 73 % (42-75); PLATELET COUNT 379 x10^3/uL (130-400); RED BLOOD COUNT 3.27 x10^6/uL (4.38-5.82); RED CELL DISTRIBUTION WIDTH 15.9 % (9.4-14.8)
[2020-02-14 05:00] LABS: MD NO
[2020-02-14 05:01] LABS: ALBUMIN 2.8 g/dL (3.4-5.0); CALCIUM 8.6 mg/dL (8.5-10.1); CHLORIDE 110 mmol/L (98-107)
[2020-02-14 05:05] LABS: ANION GAP 6 mmol/L (5-15); CREATININE 1.35 mg/dL (0.7-1.3)
[2020-02-14 05:31] VITALS: BP 148/69
[2020-02-14] MEDS: METOPROLOL SUCCINATE 25 MG TAB.ER.24H PO SCH (05:32)
[2020-02-14 06:49] VITALS: BP 152/74
[2020-02-14 06:53] VITALS: BP 136/77
[2020-02-14] MEDS: INSULIN REGULAR 100 UNITS/ML, 3ML VIAL SQ-INSULIN SCH ×4 (07:00→20:10)
[2020-02-14] MEDS: DABIGATRAN 150 MG CAPSULE PO SCH ×2 (08:38→20:10)
[2020-02-14] MEDS: ALBUMIN HUMAN 5% 250 ML IV SCH ×2 (08:38→16:20)
[2020-02-14] MEDS: CHOLECALCIFEROL 1,000 UNIT TABLET PO SCH (08:38)
[2020-02-14] MEDS: TICAGRELOR 90 MG TABLET PO SCH ×2 (08:38→20:10)
[2020-02-14] MEDS: TEMPLATE NON-FORMULARY MED. (Brinzolamide/Brimonid Tart (Simbrinza 1%-0.2% Eye Drops) 1 DR LEFTEYE SCH ×2 (08:39→20:10)
[2020-02-14] MEDS: TIOTROPIUM BROMIDE 18 MCG/INH INH SCH (09:00)
[2020-02-14] MEDS: FLUTICASONE/VILANTEROL 200-25MCG/INH INH SCH ×2 (09:00→09:55)
[2020-02-14 14:12] VITALS: BP 121/71
[2020-02-14 18:53] VITALS: BP 113/67
[2020-02-14] MEDS: EZETIMIBE 10 MG TABLET PO SCH (20:10)
[2020-02-14] MEDS: ATORVASTATIN 80 MG TABLET PO SCH (20:10)
[2020-02-15] MEDS: ALBUMIN HUMAN 5% 250 ML IV SCH ×2 (00:01→08:40)
[2020-02-15 01:17] VITALS: BP 137/83
[2020-02-15] MEDS: FUROSEMIDE 40 MG TABLET PO SCH (01:23)
[2020-02-15 05:54] VITALS: BP 174/75
[2020-02-15] MEDS: METOPROLOL SUCCINATE 25 MG TAB.ER.24H PO SCH (05:57)
[2020-02-15 06:32] VITALS: BP 163/73
[2020-02-15] MEDS: INSULIN REGULAR 100 UNITS/ML, 3ML VIAL SQ-INSULIN SCH ×3 (07:00→16:00)
[2020-02-15] MEDS: TICAGRELOR 90 MG TABLET PO SCH (08:34)
[2020-02-15] MEDS: FERROUS SULFATE 325 MG TABLET PO SCH (08:34)
[2020-02-15] MEDS: CHOLECALCIFEROL 1,000 UNIT TABLET PO SCH (08:34)
[2020-02-15] MEDS: DABIGATRAN 150 MG CAPSULE PO SCH (08:34)
[2020-02-15] MEDS: TEMPLATE NON-FORMULARY MED. (Brinzolamide/Brimonid Tart (Simbrinza 1%-0.2% Eye Drops) 1 DR LEFTEYE SCH (08:40)
[2020-02-15] MEDS: FLUTICASONE/VILANTEROL 200-25MCG/INH INH SCH (08:45)
[2020-02-15] MEDS: TIOTROPIUM BROMIDE 18 MCG/INH INH SCH (08:45)
[2020-02-15] MEDS ORDERED: FUROSEMIDE 40 MG TABLET PO ONE (09:00)
[2020-02-15 09:27] LABS: BASOPHILS % (AUTO) 1 % (0-1); EOSINOPHILS % (AUTO) 6 % (1-7); LYMPHOCYTES % (AUTO) 6 % (22-44); MEAN CORPUSCULAR HEMOGLOBIN 28.2 pg (27.5-34.5); MEAN CORPUSCULAR HGB CONC 32.4 g/dL (33.2-36.2); MEAN PLATELET VOLUME 7.7 fL (7.4-10.4); MONOCYTES % (AUTO) 8 % (2-9); NEUTROPHILS % (AUTO) 80 % (42-75); PLATELET COUNT 347 x10^3/uL (130-400); RED BLOOD COUNT 3.54 x10^6/uL (4.38-5.82); RED CELL DISTRIBUTION WIDTH 16.5 % (9.4-14.8)
[2020-02-15 09:28] LABS: MD NO
[2020-02-15 09:36] LABS: ALANINE AMINOTRANSFERASE 37 U/L (12-78); ALBUMIN 3.3 g/dL (3.4-5.0); ANION GAP 7 mmol/L (5-15); CALCIUM 9.1 mg/dL (8.5-10.1); CHLORIDE 105 mmol/L (98-107); CREATININE 1.39 mg/dL (0.7-1.3)
[2020-02-15 09:38] LABS: ALKALINE PHOSPHATASE 146 U/L (45-117); TOTAL PROTEIN 7.4 g/dL (6.4-8.2)
[2020-02-15 12:59] VITALS: BP 132/72
[2020-02-15] MEDS ORDERED: FURO40TA6 PO (17:42)
== END 2020-02-15 19:00 | disposition home or self-care (01) | DRG 871 ==
LOC: ED 02-05 02:31 → EDIP 02-05 03:28 → 4EST 02-05 23:16 → 4WST 02-08 13:04
PROVIDERS: ADMIT Internal Medicine; ATTEND Internal Medicine
PROC: 05H433Z Insertion of Infusion Device into Left Innominate Vein, Percutaneous Approach (ICD-10-PCS; principal; 2020-02-05)
DX: A41.9 Sepsis, unspecified organism (principal); J15.9 Unspecified bacterial pneumonia; J96.21 Acute and chronic respiratory failure with hypoxia; I50.43 Acute on chronic combined systolic (congestive) and diastolic (congestive) heart failure; J44.0 Chronic obstructive pulmonary disease with (acute) lower respiratory infection; I13.0 Hypertensive heart and chronic kidney disease with heart failure and stage 1 through stage 4 chronic kidney disease, or unspecified chronic kidney disease; L97.219 Non-pressure chronic ulcer of right calf with unspecified severity; N17.9 Acute kidney failure, unspecified; J82.81 Chronic eosinophilic pneumonia; Z20.828 Contact with and (suspected) exposure to other viral communicable diseases; E78.5 Hyperlipidemia, unspecified; N18.30 Chronic kidney disease, stage 3 unspecified; E11.22 Type 2 diabetes mellitus with diabetic chronic kidney disease; E66.01 Morbid (severe) obesity due to excess calories; D64.9 Anemia, unspecified; E11.621 Type 2 diabetes mellitus with foot ulcer; I83.009 Varicose veins of unspecified lower extremity with ulcer of unspecified site; K59.00 Constipation, unspecified; T36.8X5A Adverse effect of other systemic antibiotics, initial encounter; I87.2 Venous insufficiency (chronic) (peripheral); I25.10 Atherosclerotic heart disease of native coronary artery without angina pectoris; Z88.8 Allergy status to other drugs, medicaments and biological substances; Z23 Encounter for immunization; Z90.49 Acquired absence of other specified parts of digestive tract; Z87.891 Personal history of nicotine dependence; Z68.39 Body mass index [BMI] 39.0-39.9, adult; Z86.718 Personal history of other venous thrombosis and embolism; Z95.1 Presence of aortocoronary bypass graft; Z79.899 Other long term (current) drug therapy; Z79.02 Long term (current) use of antithrombotics/antiplatelets; I25.2 Old myocardial infarction; Z86.19 Personal history of other infectious and parasitic diseases; Y92.89 Other specified places as the place of occurrence of the external cause
CPT/HCPCS: 36415; 71045; 71046; 71275; 76770; 80048; 80053; 80069; 81001; 82436; 82570; 82728; 82962; 83540; 83550; 83605; 83735; 83880; 84100; 84133; 84145; 84300; 84484; 84540; 85025; 85379; 85651; 86140; 86632; 86738; 87040; 87205; 87400; 87486; 87581; 87635; 93005; 93306; 94640; 99291; G0378; J0456; J0696; J1940; P9041; Q9967; G0009; J7030; J7050; J7120; P9045

== ENCOUNTER → 2020-02-04 | Outpatient (CLI) | payer OTHER ==
[~2020-02-04] MED LIST changes: -ACETAMINOPHEN 325 MG TABLET PO PRN; -ALBUTEROL/IPRATROPIUM 2.5MG/0.5MG, 3 ML NPPB PRN; -DIAZEPAM 5 MG/ML, 2ML IVPush PRN; -DIPHENHYDRAMINE 50 MG/ML, 1ML IVPush PRN; -EPHEDRINE 50 MG/ML, 1ML IM PRN; -EPHEDRINE 50 MG/ML, 1ML IVPush PRN; +ERGO500018 PO; -FENTANYL PF 100 MCG/2ML IV PRN; -HALOPERIDOL 5 MG/ML IV PRN; -HYDROcodone/APAP 7.5-325MG/15ML UDC PO PRN; -HYDROmorphone 1 MG/ML, 1ML INJ IVPush PRN; -KETOROLAC 30 MG/1 ML IV PRN; -LABETALOL 5MG/ML, 20ML IV PRN; -LORazepam 2 MG/ML, 1ML IVPush PRN; -MEPERIDINE/PF 25MG/0.5ML IVPush PRN; -METHOCARBAMOL 1,000 MG in DEXTROSE 5% 100 ML IV PRN; -METOCLOPRAMIDE 5 MG/ML, 2ML IVPush PRN; -MIDAZOLAM 1 MG/ML, 2ML IV PRN; -ONDANSETRON 2MG/ML, 2ML IVPush PRN; -OXYcodone 5 MG/5 ML ORAL.SOL UDC PO PRN; -hydrALAzine 20 MG/ML, 1ML IV PRN
== END | disposition home or self-care (01) ==
LOC: WOUND 08:55
PROVIDERS: ATTEND Internal Medicine
DX: E11.622 Type 2 diabetes mellitus with other skin ulcer (principal); I70.238 Atherosclerosis of native arteries of right leg with ulceration of other part of lower leg; I83.018 Varicose veins of right lower extremity with ulcer other part of lower leg; L97.812 Non-pressure chronic ulcer of other part of right lower leg with fat layer exposed; I70.232 Atherosclerosis of native arteries of right leg with ulceration of calf; I83.012 Varicose veins of right lower extremity with ulcer of calf; L97.212 Non-pressure chronic ulcer of right calf with fat layer exposed; L03.115 Cellulitis of right lower limb; L03.116 Cellulitis of left lower limb; I89.0 Lymphedema, not elsewhere classified; I87.2 Venous insufficiency (chronic) (peripheral); I25.119 Atherosclerotic heart disease of native coronary artery with unspecified angina pectoris; E78.5 Hyperlipidemia, unspecified; J44.9 Chronic obstructive pulmonary disease, unspecified; E11.22 Type 2 diabetes mellitus with diabetic chronic kidney disease; I13.0 Hypertensive heart and chronic kidney disease with heart failure and stage 1 through stage 4 chronic kidney disease, or unspecified chronic kidney disease; I50.33 Acute on chronic diastolic (congestive) heart failure; N18.30 Chronic kidney disease, stage 3 unspecified; I25.2 Old myocardial infarction; E66.01 Morbid (severe) obesity due to excess calories; G47.33 Obstructive sleep apnea (adult) (pediatric); Z68.39 Body mass index [BMI] 39.0-39.9, adult; Z86.718 Personal history of other venous thrombosis and embolism; Z86.711 Personal history of pulmonary embolism; Z99.81 Dependence on supplemental oxygen; Z95.1 Presence of aortocoronary bypass graft; Z87.891 Personal history of nicotine dependence; Z79.01 Long term (current) use of anticoagulants; Z79.4 Long term (current) use of insulin; Z95.2 Presence of prosthetic heart valve; Z90.49 Acquired absence of other specified parts of digestive tract
CPT/HCPCS: 29581; 97597

== ENCOUNTER 2020-02-25 09:00 | Outpatient (CLI) | payer OTHER ==
[~2020-02-25 09:00] MED LIST changes: +ERGO500018 PO; +FURO40TA6 PO
== END 2020-02-25 23:59 | disposition home or self-care (01) ==
LOC: WOUND 09:00
PROVIDERS: ATTEND Internal Medicine
DX: E11.622 Type 2 diabetes mellitus with other skin ulcer (principal); I70.242 Atherosclerosis of native arteries of left leg with ulceration of calf; I83.222 Varicose veins of left lower extremity with both ulcer of calf and inflammation; L97.222 Non-pressure chronic ulcer of left calf with fat layer exposed; I70.238 Atherosclerosis of native arteries of right leg with ulceration of other part of lower leg; I83.218 Varicose veins of right lower extremity with both ulcer of other part of lower extremity and inflammation; L97.812 Non-pressure chronic ulcer of other part of right lower leg with fat layer exposed; L03.116 Cellulitis of left lower limb; L03.115 Cellulitis of right lower limb; I89.0 Lymphedema, not elsewhere classified; I25.119 Atherosclerotic heart disease of native coronary artery with unspecified angina pectoris; E78.5 Hyperlipidemia, unspecified; E11.22 Type 2 diabetes mellitus with diabetic chronic kidney disease; I13.0 Hypertensive heart and chronic kidney disease with heart failure and stage 1 through stage 4 chronic kidney disease, or unspecified chronic kidney disease; N18.30 Chronic kidney disease, stage 3 unspecified; I50.43 Acute on chronic combined systolic (congestive) and diastolic (congestive) heart failure; I25.2 Old myocardial infarction; J44.0 Chronic obstructive pulmonary disease with (acute) lower respiratory infection; I35.0 Nonrheumatic aortic (valve) stenosis; G47.33 Obstructive sleep apnea (adult) (pediatric); D50.9 Iron deficiency anemia, unspecified; I27.20 Pulmonary hypertension, unspecified; E66.01 Morbid (severe) obesity due to excess calories; Z68.39 Body mass index [BMI] 39.0-39.9, adult; Z86.718 Personal history of other venous thrombosis and embolism; Z86.711 Personal history of pulmonary embolism; Z99.81 Dependence on supplemental oxygen; Z95.1 Presence of aortocoronary bypass graft; Z87.891 Personal history of nicotine dependence; Z79.01 Long term (current) use of anticoagulants; Z79.4 Long term (current) use of insulin; Z86.19 Personal history of other infectious and parasitic diseases; Z95.2 Presence of prosthetic heart valve; Z90.49 Acquired absence of other specified parts of digestive tract; Z88.8 Allergy status to other drugs, medicaments and biological substances; Z79.02 Long term (current) use of antithrombotics/antiplatelets; Z79.899 Other long term (current) drug therapy
CPT/HCPCS: 29581; 99214

== ENCOUNTER 2020-03-03 08:34 | Outpatient (CLI) | payer OTHER | END 2020-03-03 23:59 | disposition home or self-care (01) | LOC: WOUND 08:34 | PROVIDERS: ATTEND Internal Medicine Cardiovascular Disease | DX: E11.622 Type 2 diabetes mellitus with other skin ulcer (principal); I83.222 Varicose veins of left lower extremity with both ulcer of calf and inflammation; I70.242 Atherosclerosis of native arteries of left leg with ulceration of calf; L97.228 Non-pressure chronic ulcer of left calf with other specified severity; I70.238 Atherosclerosis of native arteries of right leg with ulceration of other part of lower leg; I83.218 Varicose veins of right lower extremity with both ulcer of other part of lower extremity and inflammation; L97.818 Non-pressure chronic ulcer of other part of right lower leg with other specified severity; L03.116 Cellulitis of left lower limb; L03.115 Cellulitis of right lower limb; I89.0 Lymphedema, not elsewhere classified; I25.119 Atherosclerotic heart disease of native coronary artery with unspecified angina pectoris; E78.5 Hyperlipidemia, unspecified; E11.22 Type 2 diabetes mellitus with diabetic chronic kidney disease; I13.0 Hypertensive heart and chronic kidney disease with heart failure and stage 1 through stage 4 chronic kidney disease, or unspecified chronic kidney disease; N18.30 Chronic kidney disease, stage 3 unspecified; I50.43 Acute on chronic combined systolic (congestive) and diastolic (congestive) heart failure; I25.2 Old myocardial infarction; J44.0 Chronic obstructive pulmonary disease with (acute) lower respiratory infection; I35.0 Nonrheumatic aortic (valve) stenosis; G47.33 Obstructive sleep apnea (adult) (pediatric); D50.9 Iron deficiency anemia, unspecified; I27.20 Pulmonary hypertension, unspecified; E66.01 Morbid (severe) obesity due to excess calories; Z68.39 Body mass index [BMI] 39.0-39.9, adult; Z86.718 Personal history of other venous thrombosis and embolism; Z86.711 Personal history of pulmonary embolism; Z99.81 Dependence on supplemental oxygen; Z95.1 Presence of aortocoronary bypass graft; Z87.891 Personal history of nicotine dependence; Z79.01 Long term (current) use of anticoagulants; Z79.4 Long term (current) use of insulin; Z79.02 Long term (current) use of antithrombotics/antiplatelets; Z79.899 Other long term (current) drug therapy; Z86.19 Personal history of other infectious and parasitic diseases; Z95.2 Presence of prosthetic heart valve; Z90.49 Acquired absence of other specified parts of digestive tract; Z88.8 Allergy status to other drugs, medicaments and biological substances | CPT/HCPCS: 99213 ==

== ENCOUNTER → 2020-05-30 | Outpatient (CLI) | payer MEDICARE ==
[~2020-05-30] MED LIST changes: -ASPI-515 PO; +ASPI-963 PO; +HYDR-1067 PO; -HYDR-3240 PO; -OXYC5TAB3 PO; +OXYC5TAB98 PO
== END | disposition home or self-care (01) ==
LOC: WOUND 08:36
PROVIDERS: ATTEND Internal Medicine
DX: E11.622 Type 2 diabetes mellitus with other skin ulcer (principal); I83.028 Varicose veins of left lower extremity with ulcer other part of lower leg; I70.248 Atherosclerosis of native arteries of left leg with ulceration of other part of lower leg; L97.812 Non-pressure chronic ulcer of other part of right lower leg with fat layer exposed; I83.022 Varicose veins of left lower extremity with ulcer of calf; I70.242 Atherosclerosis of native arteries of left leg with ulceration of calf; L97.212 Non-pressure chronic ulcer of right calf with fat layer exposed; I70.238 Atherosclerosis of native arteries of right leg with ulceration of other part of lower leg; I83.018 Varicose veins of right lower extremity with ulcer other part of lower leg; L97.821 Non-pressure chronic ulcer of other part of left lower leg limited to breakdown of skin; I87.2 Venous insufficiency (chronic) (peripheral); I89.0 Lymphedema, not elsewhere classified; E78.5 Hyperlipidemia, unspecified; L84 Corns and callosities; E11.22 Type 2 diabetes mellitus with diabetic chronic kidney disease; I13.0 Hypertensive heart and chronic kidney disease with heart failure and stage 1 through stage 4 chronic kidney disease, or unspecified chronic kidney disease; I50.43 Acute on chronic combined systolic (congestive) and diastolic (congestive) heart failure; N18.30 Chronic kidney disease, stage 3 unspecified; J44.9 Chronic obstructive pulmonary disease, unspecified; I25.2 Old myocardial infarction; I27.20 Pulmonary hypertension, unspecified; I25.10 Atherosclerotic heart disease of native coronary artery without angina pectoris; E66.01 Morbid (severe) obesity due to excess calories; G47.33 Obstructive sleep apnea (adult) (pediatric); Z68.39 Body mass index [BMI] 39.0-39.9, adult; Z86.19 Personal history of other infectious and parasitic diseases; Z87.01 Personal history of pneumonia (recurrent); Z86.718 Personal history of other venous thrombosis and embolism; Z86.711 Personal history of pulmonary embolism; Z95.1 Presence of aortocoronary bypass graft; Z87.891 Personal history of nicotine dependence; Z79.01 Long term (current) use of anticoagulants; Z99.81 Dependence on supplemental oxygen; Z79.4 Long term (current) use of insulin; Z95.4 Presence of other heart-valve replacement; Z90.49 Acquired absence of other specified parts of digestive tract
CPT/HCPCS: 29581; 97597; G0463

== ENCOUNTER 2020-06-06 08:36 | Outpatient (CLI) | payer MEDICARE | END 2020-06-06 23:59 | disposition home or self-care (01) | LOC: WOUND 08:36 | PROVIDERS: ATTEND Internal Medicine | DX: E11.621 Type 2 diabetes mellitus with foot ulcer (principal); I83.015 Varicose veins of right lower extremity with ulcer other part of foot; I70.235 Atherosclerosis of native arteries of right leg with ulceration of other part of foot; L97.511 Non-pressure chronic ulcer of other part of right foot limited to breakdown of skin; E11.622 Type 2 diabetes mellitus with other skin ulcer; I70.232 Atherosclerosis of native arteries of right leg with ulceration of calf; I83.012 Varicose veins of right lower extremity with ulcer of calf; L97.212 Non-pressure chronic ulcer of right calf with fat layer exposed; T82.6XXD Infection and inflammatory reaction due to cardiac valve prosthesis, subsequent encounter; I33.0 Acute and subacute infective endocarditis; B95.61 Methicillin susceptible Staphylococcus aureus infection as the cause of diseases classified elsewhere; I82.591 Chronic embolism and thrombosis of other specified deep vein of right lower extremity; E78.5 Hyperlipidemia, unspecified; I87.2 Venous insufficiency (chronic) (peripheral); E11.22 Type 2 diabetes mellitus with diabetic chronic kidney disease; I13.0 Hypertensive heart and chronic kidney disease with heart failure and stage 1 through stage 4 chronic kidney disease, or unspecified chronic kidney disease; I50.43 Acute on chronic combined systolic (congestive) and diastolic (congestive) heart failure; N18.30 Chronic kidney disease, stage 3 unspecified; J44.9 Chronic obstructive pulmonary disease, unspecified; I25.2 Old myocardial infarction; I27.20 Pulmonary hypertension, unspecified; I89.0 Lymphedema, not elsewhere classified; I25.10 Atherosclerotic heart disease of native coronary artery without angina pectoris; G47.33 Obstructive sleep apnea (adult) (pediatric); E66.01 Morbid (severe) obesity due to excess calories; Z68.39 Body mass index [BMI] 39.0-39.9, adult; Z86.711 Personal history of pulmonary embolism; Z87.891 Personal history of nicotine dependence; Z86.19 Personal history of other infectious and parasitic diseases; Z87.01 Personal history of pneumonia (recurrent); Z79.01 Long term (current) use of anticoagulants; Z79.4 Long term (current) use of insulin; Z95.1 Presence of aortocoronary bypass graft; Z90.49 Acquired absence of other specified parts of digestive tract; Y83.1 Surgical operation with implant of artificial internal device as the cause of abnormal reaction of the patient, or of later complication, without mention of misadventure at the time of the procedure | CPT/HCPCS: 29581; 97597 ==

== ENCOUNTER → 2020-06-13 | Outpatient (CLI) | payer MEDICARE | END | disposition home or self-care (01) | LOC: WOUND 08:07 | PROVIDERS: ATTEND Internal Medicine | DX: E11.622 Type 2 diabetes mellitus with other skin ulcer (principal); I70.232 Atherosclerosis of native arteries of right leg with ulceration of calf; I83.012 Varicose veins of right lower extremity with ulcer of calf; L97.212 Non-pressure chronic ulcer of right calf with fat layer exposed; I87.2 Venous insufficiency (chronic) (peripheral); I89.0 Lymphedema, not elsewhere classified; E78.5 Hyperlipidemia, unspecified; I25.10 Atherosclerotic heart disease of native coronary artery without angina pectoris; E11.22 Type 2 diabetes mellitus with diabetic chronic kidney disease; I13.0 Hypertensive heart and chronic kidney disease with heart failure and stage 1 through stage 4 chronic kidney disease, or unspecified chronic kidney disease; I50.43 Acute on chronic combined systolic (congestive) and diastolic (congestive) heart failure; N18.30 Chronic kidney disease, stage 3 unspecified; J44.9 Chronic obstructive pulmonary disease, unspecified; I25.2 Old myocardial infarction; I27.20 Pulmonary hypertension, unspecified; E66.01 Morbid (severe) obesity due to excess calories; G47.33 Obstructive sleep apnea (adult) (pediatric); Z87.891 Personal history of nicotine dependence; Z79.899 Other long term (current) drug therapy; Z68.39 Body mass index [BMI] 39.0-39.9, adult; Z86.718 Personal history of other venous thrombosis and embolism; Z86.711 Personal history of pulmonary embolism; Z99.81 Dependence on supplemental oxygen; Z95.4 Presence of other heart-valve replacement; Z86.19 Personal history of other infectious and parasitic diseases; Z87.01 Personal history of pneumonia (recurrent); Z79.4 Long term (current) use of insulin; Z95.1 Presence of aortocoronary bypass graft; Z90.49 Acquired absence of other specified parts of digestive tract | CPT/HCPCS: G0463 ==

== ENCOUNTER 2020-07-09 09:08 | Outpatient (CLI) | payer MEDICARE | END 2020-07-09 23:59 | disposition home or self-care (01) | LOC: WOUND 09:08 | PROVIDERS: ATTEND Internal Medicine | DX: E11.622 Type 2 diabetes mellitus with other skin ulcer (principal); I70.232 Atherosclerosis of native arteries of right leg with ulceration of calf; I83.012 Varicose veins of right lower extremity with ulcer of calf; L97.211 Non-pressure chronic ulcer of right calf limited to breakdown of skin; I70.238 Atherosclerosis of native arteries of right leg with ulceration of other part of lower leg; I83.018 Varicose veins of right lower extremity with ulcer other part of lower leg; L97.811 Non-pressure chronic ulcer of other part of right lower leg limited to breakdown of skin; I89.0 Lymphedema, not elsewhere classified; E78.5 Hyperlipidemia, unspecified; I25.10 Atherosclerotic heart disease of native coronary artery without angina pectoris; E11.22 Type 2 diabetes mellitus with diabetic chronic kidney disease; I13.0 Hypertensive heart and chronic kidney disease with heart failure and stage 1 through stage 4 chronic kidney disease, or unspecified chronic kidney disease; I50.43 Acute on chronic combined systolic (congestive) and diastolic (congestive) heart failure; N18.30 Chronic kidney disease, stage 3 unspecified; J44.9 Chronic obstructive pulmonary disease, unspecified; I25.2 Old myocardial infarction; I27.20 Pulmonary hypertension, unspecified; L84 Corns and callosities; G47.33 Obstructive sleep apnea (adult) (pediatric); E66.01 Morbid (severe) obesity due to excess calories; Z68.39 Body mass index [BMI] 39.0-39.9, adult; Z86.718 Personal history of other venous thrombosis and embolism; Z86.711 Personal history of pulmonary embolism; Z87.891 Personal history of nicotine dependence; Z99.81 Dependence on supplemental oxygen; Z95.4 Presence of other heart-valve replacement; Z86.19 Personal history of other infectious and parasitic diseases; Z87.01 Personal history of pneumonia (recurrent); Z79.899 Other long term (current) drug therapy; Z79.4 Long term (current) use of insulin; Z95.1 Presence of aortocoronary bypass graft; Z90.49 Acquired absence of other specified parts of digestive tract; Z79.01 Long term (current) use of anticoagulants | CPT/HCPCS: 97597 ==

== ENCOUNTER 2020-07-16 08:56 | Outpatient (CLI) | payer MEDICARE ==
[~2020-07-16 08:56] MED LIST changes: +ERGO1250 PO; -ERGO500018 PO; -HYDR-1067 PO; +HYDR-2214 PO
== END 2020-07-16 23:59 | disposition home or self-care (01) ==
LOC: WOUND 08:56
PROVIDERS: ATTEND Internal Medicine
DX: E11.622 Type 2 diabetes mellitus with other skin ulcer (principal); I83.018 Varicose veins of right lower extremity with ulcer other part of lower leg; I70.238 Atherosclerosis of native arteries of right leg with ulceration of other part of lower leg; L97.811 Non-pressure chronic ulcer of other part of right lower leg limited to breakdown of skin; I89.0 Lymphedema, not elsewhere classified; E78.5 Hyperlipidemia, unspecified; I25.10 Atherosclerotic heart disease of native coronary artery without angina pectoris; E11.22 Type 2 diabetes mellitus with diabetic chronic kidney disease; I13.0 Hypertensive heart and chronic kidney disease with heart failure and stage 1 through stage 4 chronic kidney disease, or unspecified chronic kidney disease; I50.43 Acute on chronic combined systolic (congestive) and diastolic (congestive) heart failure; N18.30 Chronic kidney disease, stage 3 unspecified; J44.9 Chronic obstructive pulmonary disease, unspecified; I25.2 Old myocardial infarction; I27.20 Pulmonary hypertension, unspecified; L84 Corns and callosities; G47.33 Obstructive sleep apnea (adult) (pediatric); E66.01 Morbid (severe) obesity due to excess calories; Z68.39 Body mass index [BMI] 39.0-39.9, adult; Z86.718 Personal history of other venous thrombosis and embolism; Z87.891 Personal history of nicotine dependence; Z99.81 Dependence on supplemental oxygen; Z95.4 Presence of other heart-valve replacement; Z86.19 Personal history of other infectious and parasitic diseases; Z87.01 Personal history of pneumonia (recurrent); Z79.899 Other long term (current) drug therapy; Z79.01 Long term (current) use of anticoagulants; Z79.4 Long term (current) use of insulin; Z95.1 Presence of aortocoronary bypass graft; Z90.49 Acquired absence of other specified parts of digestive tract
CPT/HCPCS: 29581; 97597

== ENCOUNTER 2020-07-30 08:51 | Outpatient (CLI) | payer MEDICARE ==
[~2020-07-30 08:51] MED LIST changes: -ERGO1250 PO; +ERGO500018 PO
== END 2020-07-30 23:59 | disposition home or self-care (01) ==
LOC: WOUND 08:51
PROVIDERS: ATTEND Internal Medicine
DX: E11.622 Type 2 diabetes mellitus with other skin ulcer (principal); I70.238 Atherosclerosis of native arteries of right leg with ulceration of other part of lower leg; I83.018 Varicose veins of right lower extremity with ulcer other part of lower leg; L97.811 Non-pressure chronic ulcer of other part of right lower leg limited to breakdown of skin; I89.0 Lymphedema, not elsewhere classified; E78.5 Hyperlipidemia, unspecified; I25.10 Atherosclerotic heart disease of native coronary artery without angina pectoris; E11.22 Type 2 diabetes mellitus with diabetic chronic kidney disease; I13.0 Hypertensive heart and chronic kidney disease with heart failure and stage 1 through stage 4 chronic kidney disease, or unspecified chronic kidney disease; I50.43 Acute on chronic combined systolic (congestive) and diastolic (congestive) heart failure; N18.30 Chronic kidney disease, stage 3 unspecified; J44.9 Chronic obstructive pulmonary disease, unspecified; I25.2 Old myocardial infarction; I27.20 Pulmonary hypertension, unspecified; L84 Corns and callosities; G47.33 Obstructive sleep apnea (adult) (pediatric); E66.01 Morbid (severe) obesity due to excess calories; Z68.39 Body mass index [BMI] 39.0-39.9, adult; Z86.718 Personal history of other venous thrombosis and embolism; Z87.891 Personal history of nicotine dependence; Z99.81 Dependence on supplemental oxygen; Z95.4 Presence of other heart-valve replacement; Z86.19 Personal history of other infectious and parasitic diseases; Z87.01 Personal history of pneumonia (recurrent); Z79.899 Other long term (current) drug therapy; Z79.01 Long term (current) use of anticoagulants; Z79.4 Long term (current) use of insulin; Z95.1 Presence of aortocoronary bypass graft; Z90.49 Acquired absence of other specified parts of digestive tract
CPT/HCPCS: 29581; 97597

== ENCOUNTER 2020-08-06 09:04 | Outpatient (CLI) | payer MEDICARE | END 2020-08-06 23:59 | disposition home or self-care (01) | LOC: WOUND 09:04 | PROVIDERS: ATTEND Internal Medicine | DX: I70.238 Atherosclerosis of native arteries of right leg with ulceration of other part of lower leg (principal); E11.622 Type 2 diabetes mellitus with other skin ulcer; L97.811 Non-pressure chronic ulcer of other part of right lower leg limited to breakdown of skin; I83.018 Varicose veins of right lower extremity with ulcer other part of lower leg; I27.20 Pulmonary hypertension, unspecified; E78.5 Hyperlipidemia, unspecified; I25.10 Atherosclerotic heart disease of native coronary artery without angina pectoris; E11.22 Type 2 diabetes mellitus with diabetic chronic kidney disease; I13.2 Hypertensive heart and chronic kidney disease with heart failure and with stage 5 chronic kidney disease, or end stage renal disease; I50.43 Acute on chronic combined systolic (congestive) and diastolic (congestive) heart failure; N18.30 Chronic kidney disease, stage 3 unspecified; I25.2 Old myocardial infarction; I89.0 Lymphedema, not elsewhere classified; E66.01 Morbid (severe) obesity due to excess calories; L84 Corns and callosities; G47.33 Obstructive sleep apnea (adult) (pediatric); Z68.39 Body mass index [BMI] 39.0-39.9, adult; Z86.718 Personal history of other venous thrombosis and embolism; Z86.711 Personal history of pulmonary embolism; Z95.4 Presence of other heart-valve replacement; Z86.19 Personal history of other infectious and parasitic diseases; Z87.891 Personal history of nicotine dependence; Z87.01 Personal history of pneumonia (recurrent); Z79.4 Long term (current) use of insulin; Z79.01 Long term (current) use of anticoagulants; Z79.899 Other long term (current) drug therapy; Z99.81 Dependence on supplemental oxygen; Z95.1 Presence of aortocoronary bypass graft; Z90.49 Acquired absence of other specified parts of digestive tract | CPT/HCPCS: 29581; 97597 ==

== ENCOUNTER → 2020-08-13 | Outpatient (CLI) | payer MEDICARE | END | disposition home or self-care (01) | LOC: WOUND 09:25 | PROVIDERS: ATTEND Internal Medicine | DX: E11.622 Type 2 diabetes mellitus with other skin ulcer (principal); I70.238 Atherosclerosis of native arteries of right leg with ulceration of other part of lower leg; I83.018 Varicose veins of right lower extremity with ulcer other part of lower leg; L97.811 Non-pressure chronic ulcer of other part of right lower leg limited to breakdown of skin; I89.0 Lymphedema, not elsewhere classified; E78.5 Hyperlipidemia, unspecified; I25.10 Atherosclerotic heart disease of native coronary artery without angina pectoris; E11.22 Type 2 diabetes mellitus with diabetic chronic kidney disease; I13.0 Hypertensive heart and chronic kidney disease with heart failure and stage 1 through stage 4 chronic kidney disease, or unspecified chronic kidney disease; I50.43 Acute on chronic combined systolic (congestive) and diastolic (congestive) heart failure; N18.30 Chronic kidney disease, stage 3 unspecified; J44.9 Chronic obstructive pulmonary disease, unspecified; I25.2 Old myocardial infarction; I27.20 Pulmonary hypertension, unspecified; L84 Corns and callosities; G47.33 Obstructive sleep apnea (adult) (pediatric); E66.01 Morbid (severe) obesity due to excess calories; Z68.39 Body mass index [BMI] 39.0-39.9, adult; Z86.718 Personal history of other venous thrombosis and embolism; Z90.49 Acquired absence of other specified parts of digestive tract; Z87.891 Personal history of nicotine dependence; Z99.81 Dependence on supplemental oxygen; Z95.4 Presence of other heart-valve replacement; Z86.19 Personal history of other infectious and parasitic diseases; Z87.01 Personal history of pneumonia (recurrent); Z79.899 Other long term (current) drug therapy; Z79.01 Long term (current) use of anticoagulants; Z79.4 Long term (current) use of insulin; Z95.1 Presence of aortocoronary bypass graft; Z86.711 Personal history of pulmonary embolism | CPT/HCPCS: 15271; Q4133 ==

== ENCOUNTER → 2020-08-20 | Outpatient (CLI) | payer MEDICARE | END | disposition home or self-care (01) | LOC: WOUND 08:47 | PROVIDERS: ATTEND Internal Medicine | DX: E11.622 Type 2 diabetes mellitus with other skin ulcer (principal); I70.238 Atherosclerosis of native arteries of right leg with ulceration of other part of lower leg; I83.018 Varicose veins of right lower extremity with ulcer other part of lower leg; L97.811 Non-pressure chronic ulcer of other part of right lower leg limited to breakdown of skin; I89.0 Lymphedema, not elsewhere classified; E78.5 Hyperlipidemia, unspecified; I25.10 Atherosclerotic heart disease of native coronary artery without angina pectoris; E11.22 Type 2 diabetes mellitus with diabetic chronic kidney disease; I13.0 Hypertensive heart and chronic kidney disease with heart failure and stage 1 through stage 4 chronic kidney disease, or unspecified chronic kidney disease; I50.43 Acute on chronic combined systolic (congestive) and diastolic (congestive) heart failure; N18.30 Chronic kidney disease, stage 3 unspecified; J44.9 Chronic obstructive pulmonary disease, unspecified; I25.2 Old myocardial infarction; I27.20 Pulmonary hypertension, unspecified; L84 Corns and callosities; G47.33 Obstructive sleep apnea (adult) (pediatric); E66.01 Morbid (severe) obesity due to excess calories; Z68.39 Body mass index [BMI] 39.0-39.9, adult; Z86.718 Personal history of other venous thrombosis and embolism; Z90.49 Acquired absence of other specified parts of digestive tract; Z87.891 Personal history of nicotine dependence; Z99.81 Dependence on supplemental oxygen; Z95.4 Presence of other heart-valve replacement; Z86.19 Personal history of other infectious and parasitic diseases; Z87.01 Personal history of pneumonia (recurrent); Z79.899 Other long term (current) drug therapy; Z79.01 Long term (current) use of anticoagulants; Z79.4 Long term (current) use of insulin; Z95.1 Presence of aortocoronary bypass graft; Z86.711 Personal history of pulmonary embolism | CPT/HCPCS: 15271; Q4101 ==

== ENCOUNTER → 2020-08-29 | Outpatient (CLI) | payer MEDICARE | END | disposition home or self-care (01) | LOC: WOUND 10:38 | PROVIDERS: ATTEND Internal Medicine | DX: E11.622 Type 2 diabetes mellitus with other skin ulcer (principal); I83.018 Varicose veins of right lower extremity with ulcer other part of lower leg; I70.238 Atherosclerosis of native arteries of right leg with ulceration of other part of lower leg; L97.811 Non-pressure chronic ulcer of other part of right lower leg limited to breakdown of skin; I27.20 Pulmonary hypertension, unspecified; E78.5 Hyperlipidemia, unspecified; I25.10 Atherosclerotic heart disease of native coronary artery without angina pectoris; E11.22 Type 2 diabetes mellitus with diabetic chronic kidney disease; I13.2 Hypertensive heart and chronic kidney disease with heart failure and with stage 5 chronic kidney disease, or end stage renal disease; I50.43 Acute on chronic combined systolic (congestive) and diastolic (congestive) heart failure; N18.30 Chronic kidney disease, stage 3 unspecified; I25.2 Old myocardial infarction; I89.0 Lymphedema, not elsewhere classified; E66.01 Morbid (severe) obesity due to excess calories; G47.33 Obstructive sleep apnea (adult) (pediatric); Z68.39 Body mass index [BMI] 39.0-39.9, adult; Z86.718 Personal history of other venous thrombosis and embolism; Z86.711 Personal history of pulmonary embolism; Z95.4 Presence of other heart-valve replacement; Z86.19 Personal history of other infectious and parasitic diseases; Z87.891 Personal history of nicotine dependence; Z87.01 Personal history of pneumonia (recurrent); Z79.4 Long term (current) use of insulin; Z79.01 Long term (current) use of anticoagulants; Z79.899 Other long term (current) drug therapy; Z99.81 Dependence on supplemental oxygen; Z95.1 Presence of aortocoronary bypass graft; Z90.49 Acquired absence of other specified parts of digestive tract | CPT/HCPCS: 15271; Q4133 ==

== ENCOUNTER → 2020-09-03 | Outpatient (CLI) | payer MEDICARE | END | disposition home or self-care (01) | LOC: WOUND 09:09 | PROVIDERS: ATTEND Internal Medicine | DX: E11.622 Type 2 diabetes mellitus with other skin ulcer (principal); I83.018 Varicose veins of right lower extremity with ulcer other part of lower leg; I70.238 Atherosclerosis of native arteries of right leg with ulceration of other part of lower leg; L97.811 Non-pressure chronic ulcer of other part of right lower leg limited to breakdown of skin; I27.20 Pulmonary hypertension, unspecified; E78.5 Hyperlipidemia, unspecified; I25.10 Atherosclerotic heart disease of native coronary artery without angina pectoris; E11.22 Type 2 diabetes mellitus with diabetic chronic kidney disease; I13.2 Hypertensive heart and chronic kidney disease with heart failure and with stage 5 chronic kidney disease, or end stage renal disease; I50.43 Acute on chronic combined systolic (congestive) and diastolic (congestive) heart failure; N18.30 Chronic kidney disease, stage 3 unspecified; I25.2 Old myocardial infarction; I89.0 Lymphedema, not elsewhere classified; E66.01 Morbid (severe) obesity due to excess calories; J44.9 Chronic obstructive pulmonary disease, unspecified; L84 Corns and callosities; G47.33 Obstructive sleep apnea (adult) (pediatric); Z68.39 Body mass index [BMI] 39.0-39.9, adult; Z86.718 Personal history of other venous thrombosis and embolism; Z86.711 Personal history of pulmonary embolism; Z95.4 Presence of other heart-valve replacement; Z86.19 Personal history of other infectious and parasitic diseases; Z87.891 Personal history of nicotine dependence; Z87.01 Personal history of pneumonia (recurrent); Z79.4 Long term (current) use of insulin; Z79.01 Long term (current) use of anticoagulants; Z79.899 Other long term (current) drug therapy; Z99.81 Dependence on supplemental oxygen; Z95.1 Presence of aortocoronary bypass graft; Z90.49 Acquired absence of other specified parts of digestive tract | CPT/HCPCS: 15271; 29581; Q4101 ==

== ENCOUNTER → 2020-09-10 | Outpatient (CLI) | payer MEDICARE ==
[~2020-09-10] MED LIST changes: +ERGO1250 PO; -ERGO500018 PO
== END | disposition home or self-care (01) ==
LOC: WOUND 11:03
PROVIDERS: ATTEND Internal Medicine
DX: E11.622 Type 2 diabetes mellitus with other skin ulcer (principal); I83.018 Varicose veins of right lower extremity with ulcer other part of lower leg; I70.238 Atherosclerosis of native arteries of right leg with ulceration of other part of lower leg; L97.811 Non-pressure chronic ulcer of other part of right lower leg limited to breakdown of skin; I27.20 Pulmonary hypertension, unspecified; E78.5 Hyperlipidemia, unspecified; I25.10 Atherosclerotic heart disease of native coronary artery without angina pectoris; E11.22 Type 2 diabetes mellitus with diabetic chronic kidney disease; I13.2 Hypertensive heart and chronic kidney disease with heart failure and with stage 5 chronic kidney disease, or end stage renal disease; I50.43 Acute on chronic combined systolic (congestive) and diastolic (congestive) heart failure; N18.30 Chronic kidney disease, stage 3 unspecified; I25.2 Old myocardial infarction; I89.0 Lymphedema, not elsewhere classified; E66.01 Morbid (severe) obesity due to excess calories; J44.9 Chronic obstructive pulmonary disease, unspecified; L84 Corns and callosities; G47.33 Obstructive sleep apnea (adult) (pediatric); Z68.39 Body mass index [BMI] 39.0-39.9, adult; Z86.718 Personal history of other venous thrombosis and embolism; Z86.711 Personal history of pulmonary embolism; Z95.4 Presence of other heart-valve replacement; Z86.19 Personal history of other infectious and parasitic diseases; Z87.891 Personal history of nicotine dependence; Z87.01 Personal history of pneumonia (recurrent); Z79.4 Long term (current) use of insulin; Z79.01 Long term (current) use of anticoagulants; Z79.899 Other long term (current) drug therapy; Z99.81 Dependence on supplemental oxygen; Z95.1 Presence of aortocoronary bypass graft; Z90.49 Acquired absence of other specified parts of digestive tract
CPT/HCPCS: 15271; 29581; Q4101

== ENCOUNTER → 2020-09-17 | Outpatient (CLI) | payer MEDICARE | END | disposition home or self-care (01) | LOC: WOUND 08:58 | PROVIDERS: ATTEND Internal Medicine | DX: E11.622 Type 2 diabetes mellitus with other skin ulcer (principal); I83.018 Varicose veins of right lower extremity with ulcer other part of lower leg; I70.238 Atherosclerosis of native arteries of right leg with ulceration of other part of lower leg; L97.811 Non-pressure chronic ulcer of other part of right lower leg limited to breakdown of skin; I27.20 Pulmonary hypertension, unspecified; E78.5 Hyperlipidemia, unspecified; I25.10 Atherosclerotic heart disease of native coronary artery without angina pectoris; E11.22 Type 2 diabetes mellitus with diabetic chronic kidney disease; I13.2 Hypertensive heart and chronic kidney disease with heart failure and with stage 5 chronic kidney disease, or end stage renal disease; I50.43 Acute on chronic combined systolic (congestive) and diastolic (congestive) heart failure; N18.30 Chronic kidney disease, stage 3 unspecified; I25.2 Old myocardial infarction; I89.0 Lymphedema, not elsewhere classified; E66.01 Morbid (severe) obesity due to excess calories; J44.9 Chronic obstructive pulmonary disease, unspecified; L84 Corns and callosities; G47.33 Obstructive sleep apnea (adult) (pediatric); Z68.39 Body mass index [BMI] 39.0-39.9, adult; Z86.718 Personal history of other venous thrombosis and embolism; Z86.711 Personal history of pulmonary embolism; Z95.4 Presence of other heart-valve replacement; Z86.19 Personal history of other infectious and parasitic diseases; Z87.891 Personal history of nicotine dependence; Z87.01 Personal history of pneumonia (recurrent); Z79.01 Long term (current) use of anticoagulants; Z79.899 Other long term (current) drug therapy; Z79.4 Long term (current) use of insulin; Z99.81 Dependence on supplemental oxygen; Z95.1 Presence of aortocoronary bypass graft; Z90.49 Acquired absence of other specified parts of digestive tract | CPT/HCPCS: 97597 ==

== ENCOUNTER 2020-09-24 07:54 | Outpatient (CLI) | payer MEDICARE | END 2020-09-24 23:59 | disposition home or self-care (01) | LOC: WOUND 07:54 | PROVIDERS: ATTEND Surgery | DX: E11.622 Type 2 diabetes mellitus with other skin ulcer (principal); I83.018 Varicose veins of right lower extremity with ulcer other part of lower leg; I70.238 Atherosclerosis of native arteries of right leg with ulceration of other part of lower leg; L97.811 Non-pressure chronic ulcer of other part of right lower leg limited to breakdown of skin; I27.20 Pulmonary hypertension, unspecified; I25.10 Atherosclerotic heart disease of native coronary artery without angina pectoris; E11.22 Type 2 diabetes mellitus with diabetic chronic kidney disease; I13.2 Hypertensive heart and chronic kidney disease with heart failure and with stage 5 chronic kidney disease, or end stage renal disease; I50.43 Acute on chronic combined systolic (congestive) and diastolic (congestive) heart failure; N18.30 Chronic kidney disease, stage 3 unspecified; I25.2 Old myocardial infarction; I89.0 Lymphedema, not elsewhere classified; E66.01 Morbid (severe) obesity due to excess calories; J44.9 Chronic obstructive pulmonary disease, unspecified; L84 Corns and callosities; E78.2 Mixed hyperlipidemia; G47.33 Obstructive sleep apnea (adult) (pediatric); Z68.39 Body mass index [BMI] 39.0-39.9, adult; Z86.718 Personal history of other venous thrombosis and embolism; Z86.711 Personal history of pulmonary embolism; Z95.4 Presence of other heart-valve replacement; Z86.19 Personal history of other infectious and parasitic diseases; Z87.891 Personal history of nicotine dependence; Z87.01 Personal history of pneumonia (recurrent); Z79.899 Other long term (current) drug therapy; Z79.01 Long term (current) use of anticoagulants; Z79.4 Long term (current) use of insulin; Z99.81 Dependence on supplemental oxygen; Z95.1 Presence of aortocoronary bypass graft; Z90.49 Acquired absence of other specified parts of digestive tract | CPT/HCPCS: 29581; 97597 ==

== ENCOUNTER → 2020-10-01 | Outpatient (CLI) | payer MEDICARE | END | disposition home or self-care (01) | LOC: WOUND 13:50 | PROVIDERS: ATTEND Internal Medicine | DX: E11.622 Type 2 diabetes mellitus with other skin ulcer (principal); I83.018 Varicose veins of right lower extremity with ulcer other part of lower leg; I70.238 Atherosclerosis of native arteries of right leg with ulceration of other part of lower leg; L97.811 Non-pressure chronic ulcer of other part of right lower leg limited to breakdown of skin; I27.20 Pulmonary hypertension, unspecified; E78.5 Hyperlipidemia, unspecified; I25.10 Atherosclerotic heart disease of native coronary artery without angina pectoris; E11.22 Type 2 diabetes mellitus with diabetic chronic kidney disease; I13.2 Hypertensive heart and chronic kidney disease with heart failure and with stage 5 chronic kidney disease, or end stage renal disease; I50.43 Acute on chronic combined systolic (congestive) and diastolic (congestive) heart failure; N18.30 Chronic kidney disease, stage 3 unspecified; I25.2 Old myocardial infarction; I89.0 Lymphedema, not elsewhere classified; E66.01 Morbid (severe) obesity due to excess calories; J44.9 Chronic obstructive pulmonary disease, unspecified; L84 Corns and callosities; G47.33 Obstructive sleep apnea (adult) (pediatric); Z68.39 Body mass index [BMI] 39.0-39.9, adult; Z86.718 Personal history of other venous thrombosis and embolism; Z86.711 Personal history of pulmonary embolism; Z95.4 Presence of other heart-valve replacement; Z86.19 Personal history of other infectious and parasitic diseases; Z87.891 Personal history of nicotine dependence; Z87.01 Personal history of pneumonia (recurrent); Z79.899 Other long term (current) drug therapy; Z79.01 Long term (current) use of anticoagulants; Z79.4 Long term (current) use of insulin; Z99.81 Dependence on supplemental oxygen; Z95.1 Presence of aortocoronary bypass graft; Z90.49 Acquired absence of other specified parts of digestive tract | CPT/HCPCS: 29581; 97597 ==

== ENCOUNTER 2020-10-08 07:55 | Outpatient (CLI) | payer MEDICARE | END 2020-10-08 23:59 | disposition home or self-care (01) | LOC: WOUND 07:55 | PROVIDERS: ATTEND Internal Medicine | DX: E11.622 Type 2 diabetes mellitus with other skin ulcer (principal); I83.018 Varicose veins of right lower extremity with ulcer other part of lower leg; I70.238 Atherosclerosis of native arteries of right leg with ulceration of other part of lower leg; L97.811 Non-pressure chronic ulcer of other part of right lower leg limited to breakdown of skin; I27.20 Pulmonary hypertension, unspecified; I25.10 Atherosclerotic heart disease of native coronary artery without angina pectoris; E11.22 Type 2 diabetes mellitus with diabetic chronic kidney disease; I13.2 Hypertensive heart and chronic kidney disease with heart failure and with stage 5 chronic kidney disease, or end stage renal disease; I50.43 Acute on chronic combined systolic (congestive) and diastolic (congestive) heart failure; N18.30 Chronic kidney disease, stage 3 unspecified; I25.2 Old myocardial infarction; I89.0 Lymphedema, not elsewhere classified; E66.01 Morbid (severe) obesity due to excess calories; J44.9 Chronic obstructive pulmonary disease, unspecified; L84 Corns and callosities; E78.2 Mixed hyperlipidemia; G47.33 Obstructive sleep apnea (adult) (pediatric); Z68.39 Body mass index [BMI] 39.0-39.9, adult; Z86.718 Personal history of other venous thrombosis and embolism; Z86.711 Personal history of pulmonary embolism; Z95.4 Presence of other heart-valve replacement; Z86.19 Personal history of other infectious and parasitic diseases; Z87.891 Personal history of nicotine dependence; Z87.01 Personal history of pneumonia (recurrent); Z79.899 Other long term (current) drug therapy; Z79.01 Long term (current) use of anticoagulants; Z79.4 Long term (current) use of insulin; Z99.81 Dependence on supplemental oxygen; Z95.1 Presence of aortocoronary bypass graft; Z90.49 Acquired absence of other specified parts of digestive tract | CPT/HCPCS: 29581; 97597 ==

== ENCOUNTER → 2020-10-15 | Outpatient (CLI) | payer MEDICARE | END | disposition home or self-care (01) | LOC: WOUND 08:04 | PROVIDERS: ATTEND Internal Medicine | DX: E11.622 Type 2 diabetes mellitus with other skin ulcer (principal); I83.018 Varicose veins of right lower extremity with ulcer other part of lower leg; I70.238 Atherosclerosis of native arteries of right leg with ulceration of other part of lower leg; L97.811 Non-pressure chronic ulcer of other part of right lower leg limited to breakdown of skin; I27.20 Pulmonary hypertension, unspecified; I25.10 Atherosclerotic heart disease of native coronary artery without angina pectoris; E11.22 Type 2 diabetes mellitus with diabetic chronic kidney disease; I13.2 Hypertensive heart and chronic kidney disease with heart failure and with stage 5 chronic kidney disease, or end stage renal disease; I50.43 Acute on chronic combined systolic (congestive) and diastolic (congestive) heart failure; N18.30 Chronic kidney disease, stage 3 unspecified; I25.2 Old myocardial infarction; I89.0 Lymphedema, not elsewhere classified; E66.01 Morbid (severe) obesity due to excess calories; J44.9 Chronic obstructive pulmonary disease, unspecified; L84 Corns and callosities; E78.2 Mixed hyperlipidemia; G47.33 Obstructive sleep apnea (adult) (pediatric); Z68.39 Body mass index [BMI] 39.0-39.9, adult; Z86.718 Personal history of other venous thrombosis and embolism; Z86.711 Personal history of pulmonary embolism; Z95.4 Presence of other heart-valve replacement; Z86.19 Personal history of other infectious and parasitic diseases; Z87.891 Personal history of nicotine dependence; Z87.01 Personal history of pneumonia (recurrent); Z79.899 Other long term (current) drug therapy; Z79.01 Long term (current) use of anticoagulants; Z79.4 Long term (current) use of insulin; Z99.81 Dependence on supplemental oxygen; Z95.1 Presence of aortocoronary bypass graft; Z90.49 Acquired absence of other specified parts of digestive tract | CPT/HCPCS: 29581; 97597 ==

== ENCOUNTER 2020-10-22 08:01 | Outpatient (CLI) | payer MEDICARE | END 2020-10-22 23:59 | disposition home or self-care (01) | LOC: WOUND 08:01 | PROVIDERS: ATTEND Internal Medicine | DX: E11.622 Type 2 diabetes mellitus with other skin ulcer (principal); I83.018 Varicose veins of right lower extremity with ulcer other part of lower leg; I70.238 Atherosclerosis of native arteries of right leg with ulceration of other part of lower leg; L97.811 Non-pressure chronic ulcer of other part of right lower leg limited to breakdown of skin; L03.115 Cellulitis of right lower limb; E78.5 Hyperlipidemia, unspecified; I11.0 Hypertensive heart disease with heart failure; I50.43 Acute on chronic combined systolic (congestive) and diastolic (congestive) heart failure; R41.82 Altered mental status, unspecified; I25.10 Atherosclerotic heart disease of native coronary artery without angina pectoris; I89.0 Lymphedema, not elsewhere classified; E78.2 Mixed hyperlipidemia; I25.2 Old myocardial infarction; I27.20 Pulmonary hypertension, unspecified; G47.33 Obstructive sleep apnea (adult) (pediatric); E66.01 Morbid (severe) obesity due to excess calories; Z87.01 Personal history of pneumonia (recurrent); Z68.39 Body mass index [BMI] 39.0-39.9, adult; Z95.1 Presence of aortocoronary bypass graft; Z87.891 Personal history of nicotine dependence; Z98.890 Other specified postprocedural states; Z90.49 Acquired absence of other specified parts of digestive tract; Z86.718 Personal history of other venous thrombosis and embolism; Z86.711 Personal history of pulmonary embolism; Z99.81 Dependence on supplemental oxygen; Z79.01 Long term (current) use of anticoagulants; Z95.4 Presence of other heart-valve replacement | CPT/HCPCS: 29581; 97597 ==

== ENCOUNTER 2020-10-24 08:30 | Outpatient (CLI) | payer MEDICARE | END 2020-10-24 23:59 | disposition home or self-care (01) | LOC: WOUND 08:30 | PROVIDERS: ATTEND Internal Medicine | DX: E11.622 Type 2 diabetes mellitus with other skin ulcer (principal); I83.018 Varicose veins of right lower extremity with ulcer other part of lower leg; I70.238 Atherosclerosis of native arteries of right leg with ulceration of other part of lower leg; L97.811 Non-pressure chronic ulcer of other part of right lower leg limited to breakdown of skin; I27.20 Pulmonary hypertension, unspecified; I25.10 Atherosclerotic heart disease of native coronary artery without angina pectoris; E11.22 Type 2 diabetes mellitus with diabetic chronic kidney disease; I13.2 Hypertensive heart and chronic kidney disease with heart failure and with stage 5 chronic kidney disease, or end stage renal disease; I50.43 Acute on chronic combined systolic (congestive) and diastolic (congestive) heart failure; N18.30 Chronic kidney disease, stage 3 unspecified; I25.2 Old myocardial infarction; I89.0 Lymphedema, not elsewhere classified; E66.01 Morbid (severe) obesity due to excess calories; J44.9 Chronic obstructive pulmonary disease, unspecified; L84 Corns and callosities; E78.2 Mixed hyperlipidemia; G47.33 Obstructive sleep apnea (adult) (pediatric); Z68.39 Body mass index [BMI] 39.0-39.9, adult; Z86.718 Personal history of other venous thrombosis and embolism; Z86.711 Personal history of pulmonary embolism; Z95.4 Presence of other heart-valve replacement; Z86.19 Personal history of other infectious and parasitic diseases; Z87.891 Personal history of nicotine dependence; Z87.01 Personal history of pneumonia (recurrent); Z79.899 Other long term (current) drug therapy; Z79.01 Long term (current) use of anticoagulants; Z79.4 Long term (current) use of insulin; Z99.81 Dependence on supplemental oxygen; Z95.1 Presence of aortocoronary bypass graft; Z90.49 Acquired absence of other specified parts of digestive tract | CPT/HCPCS: 29581 ==

== ENCOUNTER 2020-10-29 07:51 | Outpatient (CLI) | payer MEDICARE | END 2020-10-29 23:59 | disposition home or self-care (01) | LOC: WOUND 07:51 | PROVIDERS: ATTEND Internal Medicine | DX: E11.622 Type 2 diabetes mellitus with other skin ulcer (principal); I70.238 Atherosclerosis of native arteries of right leg with ulceration of other part of lower leg; I83.018 Varicose veins of right lower extremity with ulcer other part of lower leg; L97.811 Non-pressure chronic ulcer of other part of right lower leg limited to breakdown of skin; I89.0 Lymphedema, not elsewhere classified; E78.5 Hyperlipidemia, unspecified; I25.10 Atherosclerotic heart disease of native coronary artery without angina pectoris; E11.22 Type 2 diabetes mellitus with diabetic chronic kidney disease; I13.0 Hypertensive heart and chronic kidney disease with heart failure and stage 1 through stage 4 chronic kidney disease, or unspecified chronic kidney disease; I50.43 Acute on chronic combined systolic (congestive) and diastolic (congestive) heart failure; N18.30 Chronic kidney disease, stage 3 unspecified; J44.9 Chronic obstructive pulmonary disease, unspecified; E78.2 Mixed hyperlipidemia; I27.20 Pulmonary hypertension, unspecified; I25.2 Old myocardial infarction; E66.01 Morbid (severe) obesity due to excess calories; G47.33 Obstructive sleep apnea (adult) (pediatric); Z68.39 Body mass index [BMI] 39.0-39.9, adult; Z86.718 Personal history of other venous thrombosis and embolism; Z86.711 Personal history of pulmonary embolism; Z79.01 Long term (current) use of anticoagulants; Z99.81 Dependence on supplemental oxygen; Z90.49 Acquired absence of other specified parts of digestive tract; Z95.1 Presence of aortocoronary bypass graft; Z87.891 Personal history of nicotine dependence; Z86.19 Personal history of other infectious and parasitic diseases; Z87.01 Personal history of pneumonia (recurrent); Z95.4 Presence of other heart-valve replacement; Z79.4 Long term (current) use of insulin | CPT/HCPCS: 97597 ==

== ENCOUNTER → 2020-11-05 | Outpatient (CLI) | payer MEDICARE | END | disposition home or self-care (01) | LOC: WOUND 10:40 | PROVIDERS: ATTEND Internal Medicine | DX: E11.622 Type 2 diabetes mellitus with other skin ulcer (principal); I83.018 Varicose veins of right lower extremity with ulcer other part of lower leg; I70.238 Atherosclerosis of native arteries of right leg with ulceration of other part of lower leg; L97.811 Non-pressure chronic ulcer of other part of right lower leg limited to breakdown of skin; I27.20 Pulmonary hypertension, unspecified; I25.10 Atherosclerotic heart disease of native coronary artery without angina pectoris; E11.22 Type 2 diabetes mellitus with diabetic chronic kidney disease; I13.2 Hypertensive heart and chronic kidney disease with heart failure and with stage 5 chronic kidney disease, or end stage renal disease; I50.43 Acute on chronic combined systolic (congestive) and diastolic (congestive) heart failure; N18.30 Chronic kidney disease, stage 3 unspecified; I25.2 Old myocardial infarction; I89.0 Lymphedema, not elsewhere classified; E66.01 Morbid (severe) obesity due to excess calories; J44.9 Chronic obstructive pulmonary disease, unspecified; L84 Corns and callosities; E78.2 Mixed hyperlipidemia; G47.33 Obstructive sleep apnea (adult) (pediatric); Z68.39 Body mass index [BMI] 39.0-39.9, adult; Z86.718 Personal history of other venous thrombosis and embolism; Z86.711 Personal history of pulmonary embolism; Z95.4 Presence of other heart-valve replacement; Z86.19 Personal history of other infectious and parasitic diseases; Z87.891 Personal history of nicotine dependence; Z87.01 Personal history of pneumonia (recurrent); Z79.899 Other long term (current) drug therapy; Z79.01 Long term (current) use of anticoagulants; Z79.4 Long term (current) use of insulin; Z99.81 Dependence on supplemental oxygen; Z95.1 Presence of aortocoronary bypass graft; Z90.49 Acquired absence of other specified parts of digestive tract | CPT/HCPCS: 29581; 97597 ==

== ENCOUNTER → 2020-11-12 | Outpatient (CLI) | payer MEDICARE | END | disposition home or self-care (01) | LOC: WOUND 08:00 | PROVIDERS: ATTEND Internal Medicine | DX: E11.622 Type 2 diabetes mellitus with other skin ulcer (principal); I83.018 Varicose veins of right lower extremity with ulcer other part of lower leg; I70.238 Atherosclerosis of native arteries of right leg with ulceration of other part of lower leg; L97.811 Non-pressure chronic ulcer of other part of right lower leg limited to breakdown of skin; I27.20 Pulmonary hypertension, unspecified; I25.10 Atherosclerotic heart disease of native coronary artery without angina pectoris; E11.22 Type 2 diabetes mellitus with diabetic chronic kidney disease; I13.2 Hypertensive heart and chronic kidney disease with heart failure and with stage 5 chronic kidney disease, or end stage renal disease; I50.43 Acute on chronic combined systolic (congestive) and diastolic (congestive) heart failure; N18.30 Chronic kidney disease, stage 3 unspecified; I25.2 Old myocardial infarction; I89.0 Lymphedema, not elsewhere classified; E66.01 Morbid (severe) obesity due to excess calories; J44.9 Chronic obstructive pulmonary disease, unspecified; L84 Corns and callosities; E78.2 Mixed hyperlipidemia; G47.33 Obstructive sleep apnea (adult) (pediatric); Z68.39 Body mass index [BMI] 39.0-39.9, adult; Z86.718 Personal history of other venous thrombosis and embolism; Z86.711 Personal history of pulmonary embolism; Z95.4 Presence of other heart-valve replacement; Z86.19 Personal history of other infectious and parasitic diseases; Z87.891 Personal history of nicotine dependence; Z87.01 Personal history of pneumonia (recurrent); Z79.899 Other long term (current) drug therapy; Z79.01 Long term (current) use of anticoagulants; Z79.4 Long term (current) use of insulin; Z99.81 Dependence on supplemental oxygen; Z95.1 Presence of aortocoronary bypass graft; Z90.49 Acquired absence of other specified parts of digestive tract | CPT/HCPCS: 29581; 97597 ==

== ENCOUNTER 2020-11-16 22:57 | Emergency (ER) | payer MEDICARE ==
[~2020-11-16] VITALS: Ht 180.3 cm; Wt 285.0 kg
[2020-11-16 23:03] VITALS: BP 123/51
--- NOTE | 2020-11-16 23:29 | NUR ---
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
--- NOTE | 2020-11-17 00:01 | NUR ---
Break RN assuming care at this time.
[2020-11-17 00:10] LABS: BASOPHILS % (AUTO) 1 % (0-1); EOSINOPHILS % (AUTO) 5 % (1-7); LYMPHOCYTES % (AUTO) 8 % (22-44); MEAN CORPUSCULAR HEMOGLOBIN 28.4 pg (27.5-34.5); MEAN CORPUSCULAR HGB CONC 33.3 g/dL (33.2-36.2); MEAN PLATELET VOLUME 8.3 fL (7.4-10.4); MONOCYTES % (AUTO) 11 % (2-9); NEUTROPHILS % (AUTO) 75 % (42-75); PLATELET COUNT 216 x10^3/uL (130-400); RED BLOOD COUNT 4.53 x10^6/uL (4.38-5.82); RED CELL DISTRIBUTION WIDTH 17.7 % (9.4-14.8)
[2020-11-17 00:22] LABS: ALANINE AMINOTRANSFERASE 20 U/L (12-78); ALBUMIN 2.9 g/dL (3.4-5.0); ANION GAP 7 mmol/L (5-15); CALCIUM 8.5 mg/dL (8.5-10.1); CHLORIDE 100 mmol/L (98-107); CREATININE 2.11 mg/dL (0.7-1.3); INTERNATIONAL NORMALIZED RATIO 1.12 (0.93-1.1); PROTHROMBIN TIME 11.9 Seconds (9.6-11.5)
[2020-11-17 00:27] LABS: ALKALINE PHOSPHATASE 64 U/L (45-117); BILIRUBIN,TOTAL 0.6 mg/dL (0.2-1.0); TOTAL PROTEIN 7.4 g/dL (6.4-8.2); TROPONIN I 0.024 ng/mL (0.000-0.045)
--- NOTE | 2020-11-17 00:27 | NUR ---
Pt resting comfortably, on home O2 settings. Pending lab and imaging results. In wheelchair, with call ahumada in hand changing TV channels.
[2020-11-17 01:18] LABS: MICROSCOPIC NOT IND
== END 2020-11-17 02:10 | disposition home or self-care (01) ==
LOC: ED 23:00
DX: R41.82 Altered mental status, unspecified (principal); R94.4 Abnormal results of kidney function studies; I44.5 Left posterior fascicular block; I50.9 Heart failure, unspecified; I25.2 Old myocardial infarction; J44.9 Chronic obstructive pulmonary disease, unspecified; E11.9 Type 2 diabetes mellitus without complications; Z86.718 Personal history of other venous thrombosis and embolism; Z87.891 Personal history of nicotine dependence; Z95.1 Presence of aortocoronary bypass graft
CPT/HCPCS: 36415; 36600; 70450; 71045; 80053; 80320; 81003; 82140; 82803; 84484; 85025; 85610; 85730; 93005; 99285; G0480

== ENCOUNTER 2020-11-17 08:13 | Outpatient (CLI) | payer MEDICARE | END 2020-11-17 23:59 | disposition home or self-care (01) | LOC: WOUND 08:13 | PROVIDERS: ATTEND Internal Medicine | DX: I87.333 Chronic venous hypertension (idiopathic) with ulcer and inflammation of bilateral lower extremity (principal); E11.622 Type 2 diabetes mellitus with other skin ulcer; I70.242 Atherosclerosis of native arteries of left leg with ulceration of calf; L97.222 Non-pressure chronic ulcer of left calf with fat layer exposed; I70.238 Atherosclerosis of native arteries of right leg with ulceration of other part of lower leg; L97.818 Non-pressure chronic ulcer of other part of right lower leg with other specified severity; I27.20 Pulmonary hypertension, unspecified; I25.10 Atherosclerotic heart disease of native coronary artery without angina pectoris; E11.22 Type 2 diabetes mellitus with diabetic chronic kidney disease; I13.2 Hypertensive heart and chronic kidney disease with heart failure and with stage 5 chronic kidney disease, or end stage renal disease; I50.43 Acute on chronic combined systolic (congestive) and diastolic (congestive) heart failure; N18.30 Chronic kidney disease, stage 3 unspecified; I25.2 Old myocardial infarction; I89.0 Lymphedema, not elsewhere classified; E66.01 Morbid (severe) obesity due to excess calories; J44.9 Chronic obstructive pulmonary disease, unspecified; L84 Corns and callosities; E78.2 Mixed hyperlipidemia; G47.33 Obstructive sleep apnea (adult) (pediatric); Z68.39 Body mass index [BMI] 39.0-39.9, adult; Z86.718 Personal history of other venous thrombosis and embolism; Z86.711 Personal history of pulmonary embolism; Z95.4 Presence of other heart-valve replacement; Z86.19 Personal history of other infectious and parasitic diseases; Z87.891 Personal history of nicotine dependence; Z87.01 Personal history of pneumonia (recurrent); Z79.899 Other long term (current) drug therapy; Z79.01 Long term (current) use of anticoagulants; Z79.4 Long term (current) use of insulin; Z99.81 Dependence on supplemental oxygen; Z95.1 Presence of aortocoronary bypass graft; Z90.49 Acquired absence of other specified parts of digestive tract | CPT/HCPCS: 29581; G0463 ==